=== PATIENT | female | born 1935 | race Caucasian/White ===

== ENCOUNTER 2016-07-23 17:00 | Inpatient (IN) | payer MEDICARE, MEDICAID ==
--- NOTE | 2016-07-23 17:16 | ED Physician Chart ---
Chief Complaint/HPI - Patient Information Date Seen:: 07/23/16 Time Seen:: 17:00 Chief Complaint:: generalized weakness History of Present Illness:: 80-year-old female with acute, constant, moderate to severe, generalized weakness started today. Has associated inability to stand. Also has associated decreased appetite. History limited patient has underlying dementia History provided by EMS and EMS run sheet Historian:: EMS Review:: Nurse's Note Reviewed, EMS run form Reviewed, Transfer documents Reviewed Review of Systems - Review of Systems Other: Complete system review otherwise unremarkable except as noted in HPI. Past Medical History - Past Medical History Past Medical History: HTN, Dyslipidemia, Thyroid disorder, Dementia, Other ( chronic kidney disease) Family History: None Social History: Non Smoker, No Alcohol, No Drug Use, Care Facility Surgical History: None Psychiatricy History: Dementia Medication: Reviewed Family Medical History - Family Member Mother History Unknown: Yes Physical Exam - Physical Examination Other:: INITIAL VITAL SIGNS: Reviewed by me GENERAL: Alert and interactive but confused and demented. No acute distress HEAD: Head is normocephalic and atraumatic EYES: EOMI. . No scleral icterus. No conjunctival injection ENT: Dry mucous membranes. NECK: Supple. No masses. Full range of motion RESPIRATORY: No tachypnea. Clear breath sounds bilaterally. No wheezing, rales, or rhonchi CV: Regular rate and rhythm. No murmurs, rubs, or gallops ABDOMEN: Soft, non-distended, non-tender. No guarding. No rebound. No masses. EXTREMITIES: No deformity. No cyanosis. No edema. SKIN: Warm and dry. No obvious rashes. NEUROLOGIC: Alert and oriented. Face is symmetric. Speech is normal. Moves all extremities equally. Motor and sensory distally intact. Labs/Radiology/EKG Results - Lab Results Results: Lab Results 07/23/16 07/23/16 07/23/16 Range/Units 17:15 17:15 17:15 WBC 7.6 (4.8-10.8) Th/cmm RBC 3.56 L (3.80-5.20) Mil/cmm Hgb 11.2 L (11.7-16.1) gm/dL Hct 33.6 L (35.0-45.0) % MCV 94.5 (81-100) fl MCH 31.5 H (27.0-31.0) pg MCHC Differential 33.4 (28.0-36.0) pg RDW 13.6 (11.5-20.0) % Plt Count 225 (150-400) Th/cmm MPV 7.7 fl Neutrophils % 72.7 (40.0-80.0) % Lymphocytes % 18.3 L (20.0-50.0) % Monocytes % 7.6 (2.0-10.0) % Eosinophils % 0.9 (0.0-5.0) % Basophils % 0.5 (0.0-2.0) % PT 11.0 (9.5-11.5) SECONDS INR 1.06 (0.5-1.4) PTT (Actin FS) 25.7 L (26.0-38.0) SECONDS Sodium 141 (136-145) mEq/L Potassium 4.2 (3.5-5.1) mEq/L Chloride 111 H (98-107) mEq/L Carbon Dioxide 23.5 (21.0-31.0) mEq/L Anion Gap 10.7 (7.0-16.0) BUN 40 H (7-25) mg/dL Creatinine 1.8 H (0.6-1.2) mg/dL Est GFR ( Amer) TNP Est GFR (Non-Af Amer) TNP BUN/Creatinine Ratio 22.2 Glucose 101 (70-105) mg/dL Whole Bld Lactic Acid (0.60-1.99) mmol/L Calcium 9.0 (8.6-10.3) mg/dL Total Bilirubin 0.3 (0.3-1.0) mg/dL AST 14 (13-39) U/L ALT 17 (7-52) U/L Alkaline Phosphatase 51 (34-104) U/L Creatine Kinase 20 L (30-223) U/L Total Protein 6.2 (6.0-8.3) gm/dL Albumin 3.5 L (3.7-5.3) gm/dL Globulin 2.7 gm/dL Albumin/Globulin Ratio 1.3 (1.0-1.8) Urine Source Urine Color Urine Clarity (CLEAR) Urine pH Ur Specific [place] (1.005-1.030) Urine Protein (NEGATIVE) mg/dL Urine Glucose (UA) (NEGATIVE) mg/dL Urine Ketones (NEGATIVE) mg/dL Urine Blood (NEGATIVE) Urine Nitrate (NEGATIVE) Urine Bilirubin (NEGATIVE) Urine Urobilinogen (0.2 - 1.0) E.U./dL Ur Leukocyte Esterase (NEGATIVE) Urine RBC (0-5) /hpf Urine WBC (0-5) /hpf Ur Epithelial Cells (FEW) /lpf Amorphous Sediment (NONE SEEN) Urine Bacteria (NONE SEEN) /hpf 07/23/16 07/23/16 Range/Units 17:15 17:30 WBC (4.8-10.8) Th/cmm RBC (3.80-5.20) Mil/cmm Hgb (11.7-16.1) gm/dL Hct (35.0-45.0) % MCV (81-100) fl MCH (27.0-31.0) pg MCHC Differential (28.0-36.0) pg RDW (11.5-20.0) % Plt Count (150-400) Th/cmm MPV fl Neutrophils % (40.0-80.0) % Lymphocytes % (20.0-50.0) % Monocytes % (2.0-10.0) % Eosinophils % (0.0-5.0) % Basophils % (0.0-2.0) % PT (9.5-11.5) SECONDS INR (0.5-1.4) PTT (Actin FS) (26.0-38.0) SECONDS Sodium (136-145) mEq/L Potassium (3.5-5.1) mEq/L Chloride (98-107) mEq/L Carbon Dioxide (21.0-31.0) mEq/L Anion Gap (7.0-16.0) BUN (7-25) mg/dL Creatinine (0.6-1.2) mg/dL Est GFR ( Amer) Est GFR (Non-Af Amer) BUN/Creatinine Ratio Glucose (70-105) mg/dL Whole Bld Lactic Acid 1.04 (0.60-1.99) mmol/L Calcium (8.6-10.3) mg/dL Total Bilirubin (0.3-1.0) mg/dL AST (13-39) U/L ALT (7-52) U/L Alkaline Phosphatase (34-104) U/L Creatine Kinase (30-223) U/L Total Protein (6.0-8.3) gm/dL Albumin (3.7-5.3) gm/dL Globulin gm/dL Albumin/Globulin Ratio (1.0-1.8) Urine Source [place] Urine Color YELLOW Urine Clarity CLOUDY H (CLEAR) Urine pH 5.5 Ur Specific [place] 1.020 (1.005-1.030) Urine Protein 100 H (NEGATIVE) mg/dL Urine Glucose (UA) NEGATIVE (NEGATIVE) mg/dL Urine Ketones NEGATIVE (NEGATIVE) mg/dL Urine Blood MODERATE H (NEGATIVE) Urine Nitrate NEGATIVE (NEGATIVE) Urine Bilirubin NEGATIVE (NEGATIVE) Urine Urobilinogen 0.2 (0.2 - 1.0) E.U./dL Ur Leukocyte Esterase MODERATE H (NEGATIVE) Urine RBC 2-5 (0-5) /hpf Urine WBC 50-100 H (0-5) /hpf Ur Epithelial Cells FEW (FEW) /lpf Amorphous Sediment FEW URATES (NONE SEEN) Urine Bacteria MANY (NONE SEEN) /hpf - Radiology Results Results: Single AP VIEW Portable Chest X-ray was interpreted independently and contemporaneously by Gaviota Mcknight MD: No cardiomegaly Normal mediastinum No lung infiltrates No pneumothorax No soft tissue or bony abnormalities ED Septic Shock - . Is Septic Shock (SBP<90, OR Lactate>4 mmol\L) present?: No Reassessment (Disposition) - Reassessment Reassessment:: has UTI most likely causing infectious encephalopathy. Also has acute on chronic kidney injury and dehydration. Gave IV normal saline. Also given IV Rocephin. Discussed the case with the admitting physician. Patient will be admitted for further workup and treatment. Reassessment Condition:: Improved - Diagnosis Diagnosis:: Infectious encephalopathy Acute on chronic kidney failure Dehydration Failure to thrive - Patient Disposition Discharge/Transfer:: Acute Care w/in this hosp Admitting Medical Physician:: Ulises Chan Time:: 18:44 Condition at Disposition:: Improved ED Discharge Plan - Patient Disposition Admit/Discharge/Transfer: Acute Care w/in this hosp
[2016-07-23] MEDS ORDERED: cefTRIAXone 1 GM in Sodium Chloride 0.9% 50 ML IV ONE (17:17)
[2016-07-23] MEDS ORDERED: Sodium Chloride 0.9% 1,000 ML IV ONE (17:17)
[2016-07-23 17:47] LABS: % BASOPHILS 0.5 % (0.0-2.0); % EOSINOPHILS 0.9 % (0.0-5.0); % LYMPHOCYTES 18.3 % (20.0-50.0); % MONOCYTES 7.6 % (2.0-10.0); % NEUTROPHILS 72.7 % (40.0-80.0); HEMATOCRIT 33.6 % (35.0-45.0); HEMOGLOBIN 11.2 gm/dL (11.7-16.1); MEAN CELL VOLUME 94.5 fl (81-100); MEAN CORPUSCULAR HEMOGLOBIN 31.5 pg (27.0-31.0); MEAN CORPUSCULAR HGB CONC 33.4 pg (28.0-36.0); MEAN PLATELET VOLUME 7.7 fl; NEUTROPHILE ABSOLUTE 5.5 Th/cmm (1.8-8.0); PLATELET COUNT 225 Th/cmm (150-400); RED BLOOD COUNT 3.56 Mil/cmm (3.80-5.20); RED CELL DISTRIBUTION WIDTH 13.6 % (11.5-20.0); WHITE BLOOD COUNT 7.6 Th/cmm (4.8-10.8)
[2016-07-23 17:55] LABS: INR 1.06 (0.5-1.4)
[2016-07-23 18:00] LABS: ALB/GLOB RATIO 1.3 (1.0-1.8); ALKALINE PHOSPHATASE 51 U/L (34-104); ANION GAP 10.7 (7.0-16.0); BILIRUBIN,TOTAL 0.3 mg/dL (0.3-1.0); BUN - UREA NITROGEN 40 mg/dL (7-25); BUN/CREATININE RATIO 22.2; CARBON DIOXIDE 23.5 mEq/L (21.0-31.0); CHLORIDE 111 mEq/L (98-107); CREATININE - SERUM 1.8 mg/dL (0.6-1.2); GLUCOSE 101 mg/dL (70-105); POTASSIUM SERUM 4.2 mEq/L (3.5-5.1); SGOT 14 U/L (13-39); SGPT/ALT 17 U/L (7-52); SODIUM SERUM 141 mEq/L (136-145)
[2016-07-23 18:32] LABS: URINE BILIRUBIN NEGATIVE (NEGATIVE); URINE BLOOD MODERATE (NEGATIVE); URINE COLOR YELLOW; URINE GLUCOSE (UA) NEGATIVE (NEGATIVE); URINE KETONE NEGATIVE (NEGATIVE); URINE PH 5.5; URINE PROTEIN 100 mg/dL (NEGATIVE); URINE UROBILINOGEN 0.2 E.U./dL (0.2 - 1.0)
[2016-07-23 18:33] LABS: URINE EPITHELIAL CELLS FEW /lpf (FEW)
[2016-07-23 18:34] LABS: URINE AMORPHOUS SEDIMENT FEW URATES (NONE SEEN); URINE BACTERIA MANY /hpf (NONE SEEN); URINE WBC 50-100 /hpf (0-5)
--- NOTE | 2016-07-23 22:08 | Admit Criteria Form ---
Admit Criteria Forms - Admit Criteria Diagnosis: URINARY COMPLICATIONS Clinical Indications for Inpatient Care (Place 'X' for any and all applicable criteria): Ongoing inpatient care may be indicated for urinary complications with ANY ONE of the following: [X]I. Urinary tract infection requiring inpatient care as indicated by ANY ONE of the following(8)(19)(20): [ ]a) Severe symptoms (eg, high fever, severe pain) [X]b) Vomiting or dehydration requiring ongoing inpatient care [X]c) IV antibiotic needs that cannot be managed at lower level of care [ ]d) Hemodynamic instability [ ]e) Obstruction of collecting system by stone or tumor [ ]II. Urinary retention requiring drainage or surgery (3)(4)(5)(17)(18) [ ]III. Renal failure (Use Renal Failure Criteria for further information.) [ ]IV. Oliguria(30) [ ]V. Post obstructive diuresis requiring close monitoring of urine output and intravenous compensation for excessive fluid losses(33) Extended stay beyond goal length of stay for primary condition may be needed until ALL of the following are present(3)(4)(5)(8): [ ]a) Renal function (creatinine) at baseline, or daily decreases in creatinine consistent with renal function return [ ]b) Voiding adequately or with urinary catheter or percutaneous suprapubic tube and management regimen in place that is performable at lower level of care. [ ]c) Urine output adequate [ ]d) Fever absent or resolving [ ]e) Infection absent or treatable at next level of care The original [facility] content created by [employer] has been revised. The portions of the content which have been revised are identified through the use of italic text or in bold, and [facility] [employer] has neither reviewed nor approved the modified material. All other unmodified content is copyright [facility] Please see references footnoted in the original [facility] [employer] edition 2016 Admit Criteria Met?: Yes
[2016-07-23] MEDS ORDERED: Promethazine DM 6.25/15mg-5mL 5 ML SYR PO PRN (22:10)
[2016-07-23] MEDS ORDERED: Maalox 30 mL Cup PO PRN (22:10)
[2016-07-23] MEDS: Sodium Chloride 0.45% 1,000 ML IV SCH (22:29)
[2016-07-24 01:01] VITALS: BP 161/83
[2016-07-24 06:38] LABS: % BASOPHILS 0.6 % (0.0-2.0); % EOSINOPHILS 1.1 % (0.0-5.0); % LYMPHOCYTES 23.1 % (20.0-50.0); % MONOCYTES 6.8 % (2.0-10.0); % NEUTROPHILS 68.4 % (40.0-80.0); HEMATOCRIT 31.3 % (35.0-45.0); HEMOGLOBIN 10.3 gm/dL (11.7-16.1); MEAN CELL VOLUME 94.7 fl (81-100); MEAN CORPUSCULAR HEMOGLOBIN 31.3 pg (27.0-31.0); MEAN CORPUSCULAR HGB CONC 33.1 pg (28.0-36.0); MEAN PLATELET VOLUME 7.5 fl; PLATELET COUNT 194 Th/cmm (150-400); RED CELL DISTRIBUTION WIDTH 13.5 % (11.5-20.0)
[2016-07-24 06:51] LABS: WHITE BLOOD COUNT 5.9 Th/cmm (4.8-10.8)
[2016-07-24 06:52] LABS: ALB/GLOB RATIO 1.2 (1.0-1.8); ALKALINE PHOSPHATASE 45 U/L (34-104); ANION GAP 8.4 (7.0-16.0); BILIRUBIN,TOTAL 0.4 mg/dL (0.3-1.0); BUN - UREA NITROGEN 33 mg/dL (7-25); CALCIUM SERUM 8.6 mg/dL (8.6-10.3); CARBON DIOXIDE 22.7 mEq/L (21.0-31.0); CHLORIDE 109 mEq/L (98-107); CREATININE - SERUM 1.5 mg/dL (0.6-1.2); GLUCOSE 93 mg/dL (70-105); POTASSIUM SERUM 4.1 mEq/L (3.5-5.1); SGOT 12 U/L (13-39); SGPT/ALT 13 U/L (7-52); SODIUM SERUM 136 mEq/L (136-145)
[2016-07-24] MEDS: Levothyroxine 0.075 Mg Tab PO SCH (08:00)
[2016-07-24] MEDS: Multivitamin w/ Minerals Tab PO SCH (08:58)
[2016-07-24] MEDS: Pantoprazole 40 mg EC Tab PO SCH (08:58)
[2016-07-24] MEDS ORDERED: NEBIVOLOL HCL 10 MG PO SCH (09:00)
[2016-07-24] MEDS ORDERED: [UNRECOGNIZED DRUG - OTHER] PO SCH (09:00)
--- NOTE | 2016-07-24 09:11 | Diagnostic Imaging Report ---
CHEST X-RAY: AP view INDICATION: pain COMPARISON: None FINDINGS: Chronic lung changes are seen with no focal consolidation or pleural effusions. Borderline cardiomegaly is seen with atherosclerotic vascular disease and probable mitral annulus calcifications. Degenerative changes of the spine are noted. IMPRESSION: Chronic lung changes with no focal consolidation identified. Borderline cardiomegaly with atherosclerosis.
[2016-07-24] MEDS ORDERED: Influenza Vaccine 0.5 mL Syr IM ONE (11:00)
[2016-07-24] MEDS ORDERED: Pneumococcal Vaccine 0.5 mL Vial IM ONE (11:00)
--- NOTE | 2016-07-24 11:54 | General Progress Note ---
Objective - Results Result Diagrams: 07/24/16 06:05 07/24/16 06:05 Recent Labs: Laboratory Last Values WBC 5.9 Th/cmm (4.8-10.8) D 07/24/16 06:05 RBC 3.30 Mil/cmm (3.80-5.20) L 07/24/16 06:05 Hgb 10.3 gm/dL (11.7-16.1) L 07/24/16 06:05 Hct 31.3 % (35.0-45.0) L 07/24/16 06:05 MCV 94.7 fl (81-100) 07/24/16 06:05 MCH 31.3 pg (27.0-31.0) H 07/24/16 06:05 MCHC Differential 33.1 pg (28.0-36.0) 07/24/16 06:05 RDW 13.5 % (11.5-20.0) 07/24/16 06:05 Plt Count 194 Th/cmm (150-400) 07/24/16 06:05 MPV 7.5 fl 07/24/16 06:05 Neutrophils % 68.4 % (40.0-80.0) 07/24/16 06:05 Lymphocytes % 23.1 % (20.0-50.0) 07/24/16 06:05 Monocytes % 6.8 % (2.0-10.0) 07/24/16 06:05 Eosinophils % 1.1 % (0.0-5.0) 07/24/16 06:05 Basophils % 0.6 % (0.0-2.0) 07/24/16 06:05 PT 11.0 SECONDS (9.5-11.5) 07/23/16 17:15 INR 1.06 (0.5-1.4) 07/23/16 17:15 PTT (Actin FS) 25.7 SECONDS (26.0-38.0) L 07/23/16 17:15 Sodium 136 mEq/L (136-145) 07/24/16 06:05 Potassium 4.1 mEq/L (3.5-5.1) 07/24/16 06:05 Chloride 109 mEq/L (98-107) H 07/24/16 06:05 Carbon Dioxide 22.7 mEq/L (21.0-31.0) 07/24/16 06:05 Anion Gap 8.4 (7.0-16.0) 07/24/16 06:05 BUN 33 mg/dL (7-25) H 07/24/16 06:05 Creatinine 1.5 mg/dL (0.6-1.2) H 07/24/16 06:05 Est GFR ( Amer) TNP 07/24/16 06:05 Est GFR (Non-Af Amer) TNP 07/24/16 06:05 BUN/Creatinine Ratio 22.0 07/24/16 06:05 Glucose 93 mg/dL (70-105) 07/24/16 06:05 Whole Bld Lactic Acid 1.04 mmol/L (0.60-1.99) 07/23/16 17:15 Calcium 8.6 mg/dL (8.6-10.3) 07/24/16 06:05 Total Bilirubin 0.4 mg/dL (0.3-1.0) 07/24/16 06:05 AST 12 U/L (13-39) L 07/24/16 06:05 ALT 13 U/L (7-52) 07/24/16 06:05 Alkaline Phosphatase 45 U/L (34-104) 07/24/16 06:05 Creatine Kinase 20 U/L (30-223) L 07/23/16 17:15 Total Protein 5.5 gm/dL (6.0-8.3) L 07/24/16 06:05 Albumin 3.0 gm/dL (3.7-5.3) L 07/24/16 06:05 Globulin 2.5 gm/dL 07/24/16 06:05 Albumin/Globulin Ratio 1.2 (1.0-1.8) 07/24/16 06:05 Urine Source [place] 07/23/16 17:30 Urine Color YELLOW 07/23/16 17:30 Urine Clarity CLOUDY (CLEAR) H 07/23/16 17:30 Urine pH 5.5 07/23/16 17:30 Ur Specific [place] 1.020 (1.005-1.030) 07/23/16 17:30 Urine Protein 100 mg/dL (NEGATIVE) H 07/23/16 17:30 Urine Glucose (UA) NEGATIVE mg/dL (NEGATIVE) 07/23/16 17:30 Urine Ketones NEGATIVE mg/dL (NEGATIVE) 07/23/16 17:30 Urine Blood MODERATE (NEGATIVE) H 07/23/16 17:30 Urine Nitrate NEGATIVE (NEGATIVE) 07/23/16 17:30 Urine Bilirubin NEGATIVE (NEGATIVE) 07/23/16 17:30 Urine Urobilinogen 0.2 E.U./dL (0.2 - 1.0) 07/23/16 17:30 Ur Leukocyte Esterase MODERATE (NEGATIVE) H 07/23/16 17:30 Urine RBC 2-5 /hpf (0-5) 07/23/16 17:30 Urine WBC 50-100 /hpf (0-5) H 07/23/16 17:30 Ur Epithelial Cells FEW /lpf (FEW) 07/23/16 17:30 Amorphous Sediment FEW URATES (NONE SEEN) 07/23/16 17:30 Urine Bacteria MANY /hpf (NONE SEEN) 07/23/16 17:30 - Physical Exam Vitals and I&O: Vital Signs Temp 97.1 F 07/24/16 08:00 Pulse 65 07/24/16 08:57 Resp 18 07/24/16 08:00 BP 178/89 07/24/16 08:00 Pulse Ox 98 07/24/16 08:00 Intake & Output 07/23/16 07/24/16 07/24/16 18:59 06:59 18:59 Intake Total 150 Balance 150 Intake: Oral 150 Active Medications: Current Medications Acetaminophen (Tylenol) 650 mg PO Q4HR PRN PRN Reason: PAIN Stop: 09/21/16 22:09 Al Hydrox/Mg Hydrox/Simethicone (Maalox) 30 ml PO Q6H PRN PRN Reason: GERD Atorvastatin Calcium (Lipitor) 10 mg PO HS BRANDY PRN Reason: Protocol Stop: 09/22/16 20:59 Clonidine HCl (Catapres) 0.1 mg PO Q6H PRN PRN Reason: SBP >160 Stop: 09/21/16 22:09 Last Admin: 07/24/16 08:57 Dose: 0.1 mg Docusate Sodium (Colace) 100 mg PO Q12H PRN PRN Reason: Constipation Stop: 09/21/16 22:09 Escitalopram Oxalate (Lexapro) 10 mg PO HS BRANDY PRN Reason: Protocol Stop: 09/22/16 20:59 Sodium Chloride (Nacl 0.45%) 1,000 mls @ 125 mls/hr IV .Q8H BRANDY Stop: 09/21/16 19:57 Last Admin: 07/23/16 22:29 Dose: 125 mls/hr Levothyroxine Sodium (Synthroid) 0.075 mg PO QDAC BRANDY Stop: 09/22/16 07:29 Last Admin: 07/24/16 08:00 Dose: 0.075 mg Megestrol Acetate (Megace) 400 mg PO BID BRANDY Stop: 09/22/16 08:59 Last Admin: 07/24/16 08:58 Dose: 400 mg Miscellaneous (Donepezil Hcl [Donepezil Hcl Odt]) 5 mg PO HS [facility] Stop: 09/22/16 20:59 Miscellaneous (Nebivolol Hcl [Bystolic]) 10 mg PO DAILY BRANDY Stop: 09/22/16 08:59 Pantoprazole Sodium (Protonix) 40 mg PO DAILY BRANDY Stop: 09/22/16 08:59 Last Admin: 07/24/16 08:58 Dose: 40 mg Promethazine HCl/Dextromethorphan (Phenergan Dm 6.25/15mg-5 Ml) 5 ml PO TID PRN PRN Reason: Cough Stop: 09/21/16 22:09 Assessment/Plan - Problem List Patient Problems: All Active Problems GENERALIZED WEAKNESS (Acute)
[2016-07-24] MEDS ORDERED: Non-Formulary Item 1 EA (Donepezil Hcl [Donepezil Hcl Odt] 5 MG) PO SCH (21:00)
--- NOTE | 2016-07-24 21:51 | History & Physical ---
HISTORY OF PRESENT ILLNESS: The patient came from [facility], apparently she was confused and generalized weakness, she was worked up, found to have UTI, possible sepsis, history of hypertension, hyperlipidemia, thyroid disorder, dementia, the patient is admitted. The patient was unable to give me much history. REVIEW OF SYSTEMS: Difficult to obtain. PHYSICAL EXAMINATION: GENERAL: The patient was awake, but confused and have dementia. HEENT: Normocephalic. Pupils equal, reactive to light. NECK: Supple, nontender. LUNGS: Clear. CARDIOVASCULAR: S1, S2 heard. ABDOMEN: Soft. Bowel sounds are heard. CENTRAL NERVOUS SYSTEM: Grossly normal. LABORATORY DATA: The patient's hemoglobin 11.2, hematocrit 33, WBC count was 7.6, BUN and creatinine were high and also the patient's urine showed cloudy and wbcs are positive and leukocyte esterase was positive. The chest x-ray showed no pneumonia. DIAGNOSES: Acute urinary tract infection, possible sepsis, encephalopathy of acute renal failure with a history of a possible chronic renal failure, history of dementia, history of failure to thrive. PLAN: Was made, the patient is being admitted, we will give IV antibiotics, IV fluids and I will have Dr. Murrell see the patient as well as Dr. Guzmán and I will also have Dr. Correa see the patient, I will follow the patient. JOB# [id number]
[2016-07-24] MEDS: Atorvastatin Calcium 10 MG TAB PO SCH (22:01)
[2016-07-25 07:03] LABS: ANION GAP 10.6 (7.0-16.0); BUN - UREA NITROGEN 30 mg/dL (7-25); CALCIUM SERUM 8.5 mg/dL (8.6-10.3); CARBON DIOXIDE 21.5 mEq/L (21.0-31.0); CHLORIDE 107 mEq/L (98-107); CREATININE - SERUM 1.5 mg/dL (0.6-1.2); GLUCOSE 103 mg/dL (70-105); POTASSIUM SERUM 4.1 mEq/L (3.5-5.1); SODIUM SERUM 135 mEq/L (136-145)
[2016-07-25 07:06] LABS: % BASOPHILS 0.4 % (0.0-2.0); % LYMPHOCYTES 18.4 % (20.0-50.0); % MONOCYTES 6.4 % (2.0-10.0); % NEUTROPHILS 73.8 % (40.0-80.0); HEMATOCRIT 32.5 % (35.0-45.0); MEAN CELL VOLUME 93.4 fl (81-100); MEAN CORPUSCULAR HEMOGLOBIN 31.6 pg (27.0-31.0); MEAN CORPUSCULAR HGB CONC 33.9 pg (28.0-36.0); MEAN PLATELET VOLUME 7.8 fl; NEUTROPHILE ABSOLUTE 4.8 Th/cmm (1.8-8.0); PLATELET COUNT 199 Th/cmm (150-400); RED BLOOD COUNT 3.48 Mil/cmm (3.80-5.20); RED CELL DISTRIBUTION WIDTH 13.1 % (11.5-20.0); WHITE BLOOD COUNT 6.5 Th/cmm (4.8-10.8)
--- NOTE | 2016-07-25 09:06 | General Progress Note ---
Subjective - Review of Systems Service Date: 07/25/16 Subjective: patient is awake has high tsh Objective - Results Result Diagrams: 07/25/16 05:50 07/25/16 05:50 Recent Labs: Laboratory Last Values WBC 6.5 Th/cmm (4.8-10.8) 07/25/16 05:50 RBC 3.48 Mil/cmm (3.80-5.20) L 07/25/16 05:50 Hgb 11.0 gm/dL (11.7-16.1) L 07/25/16 05:50 Hct 32.5 % (35.0-45.0) L 07/25/16 05:50 MCV 93.4 fl (81-100) 07/25/16 05:50 MCH 31.6 pg (27.0-31.0) H 07/25/16 05:50 MCHC Differential 33.9 pg (28.0-36.0) 07/25/16 05:50 RDW 13.1 % (11.5-20.0) 07/25/16 05:50 Plt Count 199 Th/cmm (150-400) 07/25/16 05:50 MPV 7.8 fl 07/25/16 05:50 Neutrophils % 73.8 % (40.0-80.0) 07/25/16 05:50 Lymphocytes % 18.4 % (20.0-50.0) L 07/25/16 05:50 Monocytes % 6.4 % (2.0-10.0) 07/25/16 05:50 Eosinophils % 1.0 % (0.0-5.0) 07/25/16 05:50 Basophils % 0.4 % (0.0-2.0) 07/25/16 05:50 PT 11.0 SECONDS (9.5-11.5) 07/23/16 17:15 INR 1.06 (0.5-1.4) 07/23/16 17:15 PTT (Actin FS) 25.7 SECONDS (26.0-38.0) L 07/23/16 17:15 Sodium 135 mEq/L (136-145) L 07/25/16 05:50 Potassium 4.1 mEq/L (3.5-5.1) 07/25/16 05:50 Chloride 107 mEq/L (98-107) 07/25/16 05:50 Carbon Dioxide 21.5 mEq/L (21.0-31.0) 07/25/16 05:50 Anion Gap 10.6 (7.0-16.0) 07/25/16 05:50 BUN 30 mg/dL (7-25) H 07/25/16 05:50 Creatinine 1.5 mg/dL (0.6-1.2) H 07/25/16 05:50 Est GFR ( Amer) TNP 07/25/16 05:50 Est GFR (Non-Af Amer) TNP 07/25/16 05:50 BUN/Creatinine Ratio 20.0 07/25/16 05:50 Glucose 103 mg/dL (70-105) 07/25/16 05:50 Whole Bld Lactic Acid 1.04 mmol/L (0.60-1.99) 07/23/16 17:15 Calcium 8.5 mg/dL (8.6-10.3) L 07/25/16 05:50 Total Bilirubin 0.4 mg/dL (0.3-1.0) 07/24/16 06:05 AST 12 U/L (13-39) L 07/24/16 06:05 ALT 13 U/L (7-52) 07/24/16 06:05 Alkaline Phosphatase 45 U/L (34-104) 07/24/16 06:05 Creatine Kinase 20 U/L (30-223) L 07/25/16 05:50 Total Protein 5.5 gm/dL (6.0-8.3) L 07/24/16 06:05 Albumin 3.0 gm/dL (3.7-5.3) L 07/24/16 06:05 Globulin 2.5 gm/dL 07/24/16 06:05 Albumin/Globulin Ratio 1.2 (1.0-1.8) 07/24/16 06:05 TSH 17.55 uIU/ml (0.34-5.60) H 07/25/16 05:50 Urine Source [place] 07/23/16 17:30 Urine Color YELLOW 07/23/16 17:30 Urine Clarity CLOUDY (CLEAR) H 07/23/16 17:30 Urine pH 5.5 07/23/16 17:30 Ur Specific [place] 1.020 (1.005-1.030) 07/23/16 17:30 Urine Protein 100 mg/dL (NEGATIVE) H 07/23/16 17:30 Urine Glucose (UA) NEGATIVE mg/dL (NEGATIVE) 07/23/16 17:30 Urine Ketones NEGATIVE mg/dL (NEGATIVE) 07/23/16 17:30 Urine Blood MODERATE (NEGATIVE) H 07/23/16 17:30 Urine Nitrate NEGATIVE (NEGATIVE) 07/23/16 17:30 Urine Bilirubin NEGATIVE (NEGATIVE) 07/23/16 17:30 Urine Urobilinogen 0.2 E.U./dL (0.2 - 1.0) 07/23/16 17:30 Ur Leukocyte Esterase MODERATE (NEGATIVE) H 07/23/16 17:30 Urine RBC 2-5 /hpf (0-5) 07/23/16 17:30 Urine WBC 50-100 /hpf (0-5) H 07/23/16 17:30 Ur Epithelial Cells FEW /lpf (FEW) 07/23/16 17:30 Amorphous Sediment FEW URATES (NONE SEEN) 07/23/16 17:30 Urine Bacteria MANY /hpf (NONE SEEN) 07/23/16 17:30 - Physical Exam Vitals and I&O: Vital Signs Temp 97.1 F 07/25/16 08:28 Pulse 70 07/25/16 08:28 Resp 17 07/25/16 08:28 BP 151/76 07/25/16 08:28 Pulse Ox 99 07/25/16 08:28 Intake & Output 07/24/16 07/25/16 07/25/16 18:59 06:59 18:59 Intake Total 650 200 Balance 650 200 Weight (lbs) 68.13 kg Intake: Oral 650 200 Other: # Voids 4 5 Active Medications: Current Medications Acetaminophen (Tylenol) 650 mg PO Q4HR PRN PRN Reason: PAIN Stop: 09/21/16 22:09 Al Hydrox/Mg Hydrox/Simethicone (Maalox) 30 ml PO Q6H PRN PRN Reason: GERD Atorvastatin Calcium (Lipitor) 10 mg PO HS BRANDY PRN Reason: Protocol Stop: 09/22/16 20:59 Last Admin: 07/24/16 22:01 Dose: 10 mg Ciprofloxacin (Cipro) 250 mg PO BID BRANDY Stop: 09/23/16 08:59 Clonidine HCl (Catapres) 0.1 mg PO Q4HR PRN PRN Reason: SBP >160 Stop: 09/22/16 01:04 Clonidine HCl (Catapres) 0.2 mg PO BID BRANDY Stop: 09/22/16 16:59 Last Admin: 07/24/16 17:20 Dose: 0.2 mg Docusate Sodium (Colace) 100 mg PO Q12H PRN PRN Reason: Constipation Stop: 09/21/16 22:09 Donepezil HCl (Aricept) 5 mg PO HS BRANDY Stop: 09/23/16 20:59 Escitalopram Oxalate (Lexapro) 10 mg PO HS BRANDY PRN Reason: Protocol Stop: 09/22/16 20:59 Sodium Chloride (Nacl 0.45%) 1,000 mls @ 125 mls/hr IV .Q8H BRANDY Stop: 09/21/16 19:57 Last Admin: 07/23/16 22:29 Dose: 125 mls/hr Levothyroxine Sodium (Synthroid) 0.075 mg PO QDAC BRANDY Stop: 09/22/16 07:29 Last Admin: 07/24/16 08:00 Dose: 0.075 mg Megestrol Acetate (Megace) 400 mg PO BID BRANDY Stop: 09/22/16 08:59 Last Admin: 07/24/16 17:20 Dose: 400 mg Miscellaneous (Nebivolol Hcl [Bystolic]) 10 mg PO DAILY BRANDY Stop: 09/22/16 08:59 Pantoprazole Sodium (Protonix) 40 mg PO DAILY BRANDY Stop: 09/22/16 08:59 Last Admin: 07/24/16 08:58 Dose: 40 mg Promethazine HCl/Dextromethorphan (Phenergan Dm 6.25/15mg-5 Ml) 5 ml PO TID PRN PRN Reason: Cough Stop: 09/21/16 22:09 General: No acute distress HEENT: Atraumatic Neck: Supple Cardiovascular: Regular rate Lungs: Clear to auscultation Abdomen: Bowel sounds, Soft, Distended Neurological: Sensation intact Psych/Mental Status: Mental status NL Assessment/Plan - Problem List Patient Problems: All Active Problems GENERALIZED WEAKNESS (Acute) dehydartion (Acute) gait disorder (Acute) hypothyroidm (Acute) osteoporosis (Acute) prerenal azotemiaa improving (Acute) - Assessment Assessment: confusion general weakness UTI HTN Hyperlipidemia thyroids disorder dementia - Plan Plan: monitor vitals/diet labs iv antibiotic fall precaution Nutritional Asmnt/Malnutr-PDOC - Dietary Evaluation Malnutrition Findings (Please click <Entered> for more info): Nutritional Asmnt/Malnutrition Start: 07/24/16 17: 36 Text: Status: Complete Freq: Document 07/24/16 17:36 GSUN (Rec: 07/24/16 17:51 [email or web address] [email or web address]) Nutritional Asmnt/Malnutrition Patient General Information Nutritional Screening High Risk Screening Diagnosis ER: infectious encephalopathy, acute on chronic CKD, dehydration, FTT Pertinent Medical Hx/Surgical Hx ER: HTN, dyslipidemia, throid disorder, dementia, CKD Subjective Information 80 year old female from home. Pt was asleep during visit, spoke to son at bedside. Son reported pt fell around 1 month ago, was admitted to rehab and ordered appetite stimulant and was eating well with possible weight gain, pt was then discharged home with caregiver who comes by. Son began noticing recent decline in PO intake, barely ate breakfast and lunch. Son stated pt usually drinks Ensure at home. Son denied difficulties chewing/ swallowing. Current Diet Order/ Nutrition Support Low sodium 2gm Pertinent Medications Maalox, Lipitor, Catapres, Colace, Synthroid, Megace, Protonix Pertinent Labs 07/23: BUN 40H, creatinine 1.8H 07/24: BUN 33H (improving), creaitnine 1.5H (improving), potassium 4.1 Nutritional Hx/Data Height 1.6 m Height (Calculated Centimeters) 160.0 Current Weight (lbs) 68.13 kg Weight (Calculated Kilograms) 68.1 Weight (Calculated Grams) 91265.6 Usual body Weight (lbs) 130 [place] Body Weight 120 Weight Status Overweight GI Symptoms Food Allergies No Cultural/Ethnic/Adventist Belief Unknown. Usual diet at home [place]. Skin Integrity/Comment: Non-pitting edema bilateral legs and right arm Current %PO Poor (25-49%) Estimated Nutritional Goals Calories/Kcals/Kg UBW 130lb/59kg, 30-35kcal/kg Kcals Calculated 1770-2065kcal Protein g/kg: UBW 1.2-1.4g/kg Protein Calculated 71-83g Fluid: ml 1770-2065ml (1ml/kcal) Nutritional Problem 1. Problem Problem Increased protein and kcal needs related to Etiology hypermetabolic state, recent decline in PO intake aeb Signs/Symptoms: ER: sepsis and FFT, son report PO intake <25% Intervention/Recommendation Comments 1. Continue with low sodium diet. Current PO intake is not meeting nutritional needs. 2. Recommend Novasource Renal BID for additional kcal and protein to better meet nutritional needs. Expected Outcomes/Goals Expected Outcomes/Goals 1. PO intake to meet 100% of estimated nutritional needs.
[2016-07-25] MEDS: Multivitamin w/ Minerals Tab PO SCH (09:26)
[2016-07-25] MEDS: Pantoprazole 40 mg EC Tab PO SCH (09:27)
[2016-07-25] MEDS: Levothyroxine 0.075 Mg Tab PO SCH (09:38)
[2016-07-25] MEDS: Sodium Chloride 0.45% 1,000 ML IV SCH (09:39)
[2016-07-25] MEDS: Atorvastatin Calcium 10 MG TAB PO SCH (21:19)
--- NOTE | 2016-07-25 22:41 | Consultation ---
INFECTIOUS DISEASE CONSULTATION REFERRING PHYSICIAN: Dr. Chan. REASON FOR CONSULTATION: UTI. HISTORY OF PRESENT ILLNESS: The patient is an 80-year-old female with past medical history of hypertension, dyslipidemia, hypothyroidism, dementia, CKD, brought in from nursing facility for generalized weakness of 1 day. She was unable to stand on her own and lost her appetite. So, she was sent to the ER for further evaluation and management. On initial evaluation, the patient's temperature was 101.2 degrees Fahrenheit and WBC count was 7600. Her creatine was 1.8. Urinalysis showed pyuria and bacteriuria. She was diagnosed to have a UTI and 1 gram Rocephin IV was administered in the ER. Urine culture grew more than 100,000 gram-negative rods. ID consult was called for further antibiotic management. PAST MEDICAL HISTORY: Includes as mentioned above, hypertension, dyslipidemia, hypothyroidism, dementia, CKD stage 2-3. FAMILY HISTORY: Noncontributory. SOCIAL HISTORY: The patient lives at nursing facility. No history of smoking, alcohol, or drug use. PAST SURGICAL HISTORY: Not available. PSYCHIATRIC HISTORY: Dementia. ALLERGIES: NKDA. MEDICATIONS: As per medication reconciliation sheet. Antibiotic wright, the patient had received Rocephin 1 gram IV yesterday. FAMILY HISTORY: Noncontributory. REVIEW OF SYSTEMS: The patient is a poor historian, unable to provide appropriate history. GENERAL: The patient has fever at presentation. The patient had also developed chills. HEENT: The patient denies any diplopia, photophobia, sore throat, or congestion. RESPIRATORY: The patient denies any cough or shortness of breath. CVS: The patient denies any chest pain or palpitation. GI: The patient denies any nausea, vomiting, diarrhea, or constipation. GENITOURINARY: The patient denies any dysuria or hematuria at this time. NEUROLOGIC: The patient denies any headache, dizziness, or focal weakness. PHYSICAL EXAMINATION: GENERAL: The patient is comfortable, well nourished, well developed, lying in the bed, not in acute distress. VITAL SIGNS: Temperature 97.6, T-max is 101.2 degrees Fahrenheit, pulse 63, respirations 19, and blood pressure is 125/67. HEENT: Head is normocephalic, atraumatic. Oral cavity; moist, pink tongue. Eyes; no pallor, no icterus. Pupils; PERRLA, EOMI. NECK: Supple. No JVD. No carotid bruit. Trachea in midline. CHEST: Bilateral vesicular sounds. No crackles or wheezing. HEART: S1 and S2 within normal limits. Regular rhythm. No murmur. No gallop. ABDOMEN: Soft, nontender, nondistended. Bowel sounds present. EXTREMITIES: No cyanosis. No clubbing. No edema. NEUROLOGICAL: Alert, awake, oriented x 3. Follows commands. Speech is clear. LABORATORY DATA: Current lab shows WBC count is 5900, hemoglobin 10.3, hematocrit 31.3, platelets are 194,000, neutrophil is 68%. Sodium is 136, potassium 4.1, chloride 109, bicarbonate is 23, BUN is 33, creatinine 1.5, glucose is 93. LFTs are reviewed. Urinalysis showed cloudy urine with moderate blood, moderate leukocyte esterase, wbc's 50-100, rbc's 2-5. IMPRESSION: 1. Fever, likely due to urinary tract infection. 2. Urinary tract infection. Urine culture grew gram-negative rods. 3. Hypertension. 4. Hyperlipidemia. 5. Hypothyroidism. RECOMMENDATIONS: We will start ciprofloxacin 250 gram p.o. b.i.d. Depending on her urine culture report, we will define final antibiotic therapy. Meanwhile, get renal ultrasound. Otherwise, chest x-ray shows no active disease. Check CBC, BMP in a.m. Check CPK in a.m. Follow up blood cultures. Follow up urine culture. Thank you, Dr. Chan, for involving me taking care of this patient. [facility]# [id number] [facility]
--- NOTE | 2016-07-25 23:04 | Infectious Disease Prog Note ---
Infectious Disease Subjective - Review of Systems Service Date: 07/25/16 Subjective: There is no new change. There is no fever. Infectious Disease Objective - Results Result Diagrams: 07/25/16 05:50 07/25/16 05:50 Recent Labs: Laboratory Last Values WBC 6.5 Th/cmm (4.8-10.8) 07/25/16 05:50 RBC 3.48 Mil/cmm (3.80-5.20) L 07/25/16 05:50 Hgb 11.0 gm/dL (11.7-16.1) L 07/25/16 05:50 Hct 32.5 % (35.0-45.0) L 07/25/16 05:50 MCV 93.4 fl (81-100) 07/25/16 05:50 MCH 31.6 pg (27.0-31.0) H 07/25/16 05:50 MCHC Differential 33.9 pg (28.0-36.0) 07/25/16 05:50 RDW 13.1 % (11.5-20.0) 07/25/16 05:50 Plt Count 199 Th/cmm (150-400) 07/25/16 05:50 MPV 7.8 fl 07/25/16 05:50 Neutrophils % 73.8 % (40.0-80.0) 07/25/16 05:50 Lymphocytes % 18.4 % (20.0-50.0) L 07/25/16 05:50 Monocytes % 6.4 % (2.0-10.0) 07/25/16 05:50 Eosinophils % 1.0 % (0.0-5.0) 07/25/16 05:50 Basophils % 0.4 % (0.0-2.0) 07/25/16 05:50 PT 11.0 SECONDS (9.5-11.5) 07/23/16 17:15 INR 1.06 (0.5-1.4) 07/23/16 17:15 PTT (Actin FS) 25.7 SECONDS (26.0-38.0) L 07/23/16 17:15 Sodium 135 mEq/L (136-145) L 07/25/16 05:50 Potassium 4.1 mEq/L (3.5-5.1) 07/25/16 05:50 Chloride 107 mEq/L (98-107) 07/25/16 05:50 Carbon Dioxide 21.5 mEq/L (21.0-31.0) 07/25/16 05:50 Anion Gap 10.6 (7.0-16.0) 07/25/16 05:50 BUN 30 mg/dL (7-25) H 07/25/16 05:50 Creatinine 1.5 mg/dL (0.6-1.2) H 07/25/16 05:50 Est GFR ( Amer) TNP 07/25/16 05:50 Est GFR (Non-Af Amer) TNP 07/25/16 05:50 BUN/Creatinine Ratio 20.0 07/25/16 05:50 Glucose 103 mg/dL (70-105) 07/25/16 05:50 Whole Bld Lactic Acid 1.04 mmol/L (0.60-1.99) 07/23/16 17:15 Calcium 8.5 mg/dL (8.6-10.3) L 07/25/16 05:50 Total Bilirubin 0.4 mg/dL (0.3-1.0) 07/24/16 06:05 AST 12 U/L (13-39) L 07/24/16 06:05 ALT 13 U/L (7-52) 07/24/16 06:05 Alkaline Phosphatase 45 U/L (34-104) 07/24/16 06:05 Creatine Kinase 20 U/L (30-223) L 07/25/16 05:50 Total Protein 5.5 gm/dL (6.0-8.3) L 07/24/16 06:05 Albumin 3.0 gm/dL (3.7-5.3) L 07/24/16 06:05 Globulin 2.5 gm/dL 07/24/16 06:05 Albumin/Globulin Ratio 1.2 (1.0-1.8) 07/24/16 06:05 TSH 17.55 uIU/ml (0.34-5.60) H 07/25/16 05:50 Urine Source [place] 07/23/16 17:30 Urine Color YELLOW 07/23/16 17:30 Urine Clarity CLOUDY (CLEAR) H 07/23/16 17:30 Urine pH 5.5 07/23/16 17:30 Ur Specific [place] 1.020 (1.005-1.030) 07/23/16 17:30 Urine Protein 100 mg/dL (NEGATIVE) H 07/23/16 17:30 Urine Glucose (UA) NEGATIVE mg/dL (NEGATIVE) 07/23/16 17:30 Urine Ketones NEGATIVE mg/dL (NEGATIVE) 07/23/16 17:30 Urine Blood MODERATE (NEGATIVE) H 07/23/16 17:30 Urine Nitrate NEGATIVE (NEGATIVE) 07/23/16 17:30 Urine Bilirubin NEGATIVE (NEGATIVE) 07/23/16 17:30 Urine Urobilinogen 0.2 E.U./dL (0.2 - 1.0) 07/23/16 17:30 Ur Leukocyte Esterase MODERATE (NEGATIVE) H 07/23/16 17:30 Urine RBC 2-5 /hpf (0-5) 07/23/16 17:30 Urine WBC 50-100 /hpf (0-5) H 07/23/16 17:30 Ur Epithelial Cells FEW /lpf (FEW) 07/23/16 17:30 Amorphous Sediment FEW URATES (NONE SEEN) 07/23/16 17:30 Urine Bacteria MANY /hpf (NONE SEEN) 07/23/16 17:30 - Physical Exam Vitals and I&O: Vital Signs Temp 97 F 07/25/16 20:00 Pulse 63 07/25/16 20:00 Resp 18 07/25/16 20:00 BP 137/76 07/25/16 20:00 Pulse Ox 97 07/25/16 20:00 Intake & Output 07/25/16 07/25/16 07/26/16 06:59 18:59 06:59 Intake Total 200 1550 150 Balance 200 1550 150 Intake: Oral 200 1550 150 Other: # Voids 5 4 Active Medications: Current Medications Acetaminophen (Tylenol) 650 mg PO Q4HR PRN PRN Reason: PAIN Stop: 09/21/16 22:09 Al Hydrox/Mg Hydrox/Simethicone (Maalox) 30 ml PO Q6H PRN PRN Reason: GERD Atorvastatin Calcium (Lipitor) 10 mg PO HS BRANDY PRN Reason: Protocol Stop: 09/22/16 20:59 Last Admin: 07/25/16 21:19 Dose: 10 mg Ciprofloxacin (Cipro) 250 mg PO BID BRANDY Stop: 09/23/16 08:59 Last Admin: 07/25/16 16:55 Dose: 250 mg Clonidine HCl (Catapres) 0.1 mg PO Q4HR PRN PRN Reason: SBP >160 Stop: 09/22/16 01:04 Clonidine HCl (Catapres) 0.2 mg PO BID BRANDY Stop: 09/22/16 16:59 Last Admin: 07/25/16 16:55 Dose: 0.2 mg Docusate Sodium (Colace) 100 mg PO Q12H PRN PRN Reason: Constipation Stop: 09/21/16 22:09 Donepezil HCl (Aricept) 5 mg PO HS BRANDY Stop: 09/23/16 20:59 Last Admin: 07/25/16 21:19 Dose: 5 mg Escitalopram Oxalate (Lexapro) 10 mg PO HS BRANDY PRN Reason: Protocol Stop: 09/22/16 20:59 Last Admin: 07/25/16 21:19 Dose: 10 mg Sodium Chloride (Nacl 0.45%) 1,000 mls @ 100 mls/hr IV .Q10H BRANDY Stop: 09/21/16 19:57 Levothyroxine Sodium (Synthroid) 0.125 mg PO QDAC BRANDY Stop: 09/24/16 07:29 Megestrol Acetate (Megace) 400 mg PO BID BRANDY Stop: 09/22/16 08:59 Last Admin: 07/25/16 16:55 Dose: 400 mg Miscellaneous (Nebivolol Hcl [Bystolic]) 10 mg PO DAILY BRANDY Stop: 09/22/16 08:59 Mupirocin (Bactroban Oint) 1 appl TP BID BRANDY Stop: 09/24/16 08:59 Mupirocin (Bactroban Oint) 1 appl NS BID BRANDY Stop: 07/30/16 09:01 Pantoprazole Sodium (Protonix) 40 mg PO DAILY BRANDY Stop: 09/22/16 08:59 Last Admin: 07/25/16 09:27 Dose: 40 mg Promethazine HCl/Dextromethorphan (Phenergan Dm 6.25/15mg-5 Ml) 5 ml PO TID PRN PRN Reason: Cough Stop: 09/21/16 22:09 General: no acute distress, well developed, well nourished HEENT: atraumatic, normocephalic, PERRLA, EOMI Neck: supple Cardiovascular: S1S2, regular Lungs: clear to auscultation bilaterally, clear to percussion Abdomen: soft, no tender, no distended, no mass Extremities: no cyanosis, no clubbing, no edema Neurological: awake, alert, oriented, CN 2-12 intact Skin: intact Infectious Disease Assmt/Plan - Problem List Patient Problems: All Active Problems GENERALIZED WEAKNESS (Acute) dehydartion (Acute) gait disorder (Acute) hypothyroidm (Acute) osteoporosis (Acute) prerenal azotemiaa improving (Acute) - Assessment Assessment: Impression: 1. UTI - E coli. 2. JORDI 3. HTN. Recommendations: Continue cipro po bid for 7 days. Meanwhile, follow up on renal US. Nutritional Asmnt/Malnutr-PDOC - Dietary Evaluation Malnutrition Findings (Please click <Entered> for more info): Nutritional Asmnt/Malnutrition Start: 07/24/16 17: 36 Text: Status: Complete Freq: Document 07/24/16 17:36 GSUN (Rec: 07/24/16 17:51 [email or web address] [email or web address]) Nutritional Asmnt/Malnutrition Patient General Information Nutritional Screening High Risk Screening Diagnosis ER: infectious encephalopathy, acute on chronic CKD, dehydration, FTT Pertinent Medical Hx/Surgical Hx ER: HTN, dyslipidemia, throid disorder, dementia, CKD Subjective Information 80 year old female from home. Pt was asleep during visit, spoke to son at bedside. Son reported pt fell around 1 month ago, was admitted to rehab and ordered appetite stimulant and was eating well with possible weight gain, pt was then discharged home with caregiver who comes by. Son began noticing recent decline in PO intake, barely ate breakfast and lunch. Son stated pt usually drinks Ensure at home. Son denied difficulties chewing/ swallowing. Current Diet Order/ Nutrition Support Low sodium 2gm Pertinent Medications Maalox, Lipitor, Catapres, Colace, Synthroid, Megace, Protonix Pertinent Labs 07/23: BUN 40H, creatinine 1.8H 07/24: BUN 33H (improving), creaitnine 1.5H (improving), potassium 4.1 Nutritional Hx/Data Height 1.6 m Height (Calculated Centimeters) 160.0 Current Weight (lbs) 68.13 kg Weight (Calculated Kilograms) 68.1 Weight (Calculated Grams) 53441.6 Usual body Weight (lbs) 130 [place] Body Weight 120 Weight Status Overweight GI Symptoms Food Allergies No Cultural/Ethnic/Yarsani Belief Unknown. Usual diet at home [place]. Skin Integrity/Comment: Non-pitting edema bilateral legs and right arm Current %PO Poor (25-49%) Estimated Nutritional Goals Calories/Kcals/Kg UBW 130lb/59kg, 30-35kcal/kg Kcals Calculated 1770-2065kcal Protein g/kg: UBW 1.2-1.4g/kg Protein Calculated 71-83g Fluid: ml 1770-2065ml (1ml/kcal) Nutritional Problem 1. Problem Problem Increased protein and kcal needs related to Etiology hypermetabolic state, recent decline in PO intake aeb Signs/Symptoms: ER: sepsis and FFT, son report PO intake <25% Intervention/Recommendation Comments 1. Continue with low sodium diet. Current PO intake is not meeting nutritional needs. 2. Recommend Novasource Renal BID for additional kcal and protein to better meet nutritional needs. Expected Outcomes/Goals Expected Outcomes/Goals 1. PO intake to meet 100% of estimated nutritional needs.
[2016-07-26] MEDS: Sodium Chloride 0.45% 1,000 ML IV SCH (03:31)
[2016-07-26 04:59] LABS: % BASOPHILS 0.4 % (0.0-2.0); % EOSINOPHILS 1.1 % (0.0-5.0); % LYMPHOCYTES 16.5 % (20.0-50.0); % MONOCYTES 6.4 % (2.0-10.0); % NEUTROPHILS 75.6 % (40.0-80.0); HEMATOCRIT 33.1 % (35.0-45.0); HEMOGLOBIN 11.4 gm/dL (11.7-16.1); MEAN CELL VOLUME 93.6 fl (81-100); MEAN CORPUSCULAR HEMOGLOBIN 32.2 pg (27.0-31.0); MEAN CORPUSCULAR HGB CONC 34.4 pg (28.0-36.0); MEAN PLATELET VOLUME 7.6 fl; NEUTROPHILE ABSOLUTE 5.4 Th/cmm (1.8-8.0); PLATELET COUNT 202 Th/cmm (150-400); RED BLOOD COUNT 3.54 Mil/cmm (3.80-5.20); RED CELL DISTRIBUTION WIDTH 13.2 % (11.5-20.0); WHITE BLOOD COUNT 7.2 Th/cmm (4.8-10.8)
[2016-07-26 05:59] LABS: POTASSIUM SERUM 3.9 mEq/L (3.5-5.1); SODIUM SERUM 136 mEq/L (136-145)
[2016-07-26 06:00] LABS: ANION GAP 9.2 (7.0-16.0); BUN - UREA NITROGEN 29 mg/dL (7-25); BUN/CREATININE RATIO 18.1; CALCIUM SERUM 8.6 mg/dL (8.6-10.3); CARBON DIOXIDE 21.7 mEq/L (21.0-31.0); CHLORIDE 109 mEq/L (98-107); CREATININE - SERUM 1.6 mg/dL (0.6-1.2); GLUCOSE 100 mg/dL (70-105); PHOSPHOROUS 3.1 mg/dL (2.5-5.0); URIC ACID 4.8 mg/dL (2.3-6.6)
--- NOTE | 2016-07-26 06:32 | Consultation ---
ATTENDING: Dr. Jer Chan, VARIOUS EXCEPTIONALITIES TEACHER: Dr. Jose Guzmán. REASON FOR CONSULTATION: Worsening kidney function, electrolyte imbalance and fluid management. History was obtained from patient's son, Richy. HISTORY OF PRESENT ILLNESS: This is an 80-year-old female with past medical history of chronic kidney disease, who came in because of generalized weakness. A few days prior to admission, the patient was on maintenance furosemide due to her ongoing Anasarca as well as possible congestive heart failure. This was subsequently discontinued. She developed generalized weakness associated with poor appetite and eventually failure to thrive. She was started on Megace. A few hours prior to admission, her generalized weakness deteriorated. Thus, she was transported to the Emergency Room. Her white count was 7.6. Chest x-ray revealed chronic lung changes, but no focal consolidation. Temperature was 97.1 degrees. Urinalysis was suggestive of urinary tract infection. She had no fever/chills, nausea and vomiting, diarrhea, abdominal pain, headaches, cough nor congestion. She came in with a BUN/creatinine of 40/1.8 and now her BUN/creatinine after hydration, improved to 30/1.5. PAST MEDICAL HISTORY: 1. Chronic kidney disease. 2. Hypothyroidism. 3. Essential hypertension with CKD. 4. Dyslipidemia. 5. Anemia of chronic disease. 6. Alzheimer dementia. 7. GERD. 8. Depression. 9. History of CHF. CURRENT MEDICATIONS: She is currently on donepezil, Bystolic, atorvastatin, ciprofloxacin, docusate sodium, citalopram, levothyroxine, megestrol acetate, multivitamins with minerals, pantoprazole, promethazine, clonidine. ALLERGIES: No known drug allergies. SOCIAL HISTORY: No history of alcohol or tobacco use. [facility]. FAMILY HISTORY: Unknown at the present time. REVIEW OF SYSTEMS: She did develop generalized weakness. No fever, no chills. Appetite had been very poor. HEENT: No mention of headaches or dizziness. CARDIORESPIRATORY: No shortness of breath, chest pain, palpitations, diaphoresis or cough. GASTROINTESTINAL: No nausea and vomiting, abdominal pain or cramping, hematemesis, melena, hematochezia, no diarrhea. ENDOCRINE: She has a history of hypothyroidism. No history and dyslipidemia, but no history of diabetes. MUSCULOSKELETAL: Multiple joint arthralgias. GENITOURINARY: History of chronic kidney disease. HEMATOLOGIC: She has mild anemia. NEUROPSYCHIATRIC: No syncopal episode or seizure activity. PHYSICAL EXAMINATION: GENERAL: The patient is alert, verbal, eating dinner, not in any form of distress. VITAL SIGNS: Her blood pressure is 141/68, pulse 61, temperature 97.1 degrees. SKIN: Poor turgor and warm. No rash, no jaundice appreciated. HEENT: Head normocephalic, atraumatic. EYES: Extraocular muscles intact. Pupils equal, round, reactive to light and accommodates. Anicteric sclerae, pink conjunctivae. Nose, midline nasal septum. Mouth, dry mucosa with poor dentition. NECK: Supple, no adenopathy, no thyromegaly, no bruits. Trachea palpated in the midline. CHEST AND CVS: S1, S2. No rub, murmur, no gallop appreciated. Point of maximal impulse fifth intercostal space, left midclavicular line. No abdominal or femoral bruits appreciated. LUNGS: Equal expansion. No use of accessory muscles. No supraclavicular retractions. Decreased breath sounds. Clear to auscultation without any wheeze. Breast symmetrical, without any discharge. ABDOMEN: Globular, soft, positive for bowel sounds. No bruits either diastolic or systolic. RECTAL: The patient refused. GENITOURINARY: Normal appearing female genitalia. MUSCULOSKELETAL: No effusions present in her joints with adequate range of motion. EXTREMITIES: No evidence of edema, cyanosis or clubbing with palpable femoral, but unable to fully appreciate popliteal and dorsalis pedis pulses. NEUROLOGIC: The patient is awake, verbal, able to respond to my inquires. However, she has a difficult time comprehending my neuro commands, so I was not able to pursue further by neuro exam. LABORATORY DATA: Revealed white count 6.5. Hemoglobin 11, hematocrit 32.5, platelets 199, polys 73.8%. Sodium 135, potassium 4.5, chloride 107, bicarb 21, BUN 30, creatinine 1.5, glucose 120, calcium 8.5, albumin is 3. TSH 17.55. IMPRESSION: 1. Chronic kidney disease, MDRD GFR 28.7 mL per minute, stage 4. The patient's chronic kidney disease is likely due to hypertensive nephrosclerosis with longstanding history of hypertension. Acute kidney injury is initially prerenal in nature. The patient has failure to thrive and unable to replenish her fluid losses. Her physical exam revealed poor skin turgor with dry oral mucosa. She has a very concentrated urine. She also admitted to being thirsty. These are all suggestive of underlying dehydration, which could ____ decrease in effective circulating volume. Thus, her prerenal azotemia may have progressed to acute tubular injury. She also has overwhelming sepsis due to complicated urinary tract infection and this may give raise to acute interstitial nephritis. 2.Generalized weakness with failure to thrive, possibly a combination of underlying sepsis due to her complicated urinary tract infection and severe hypothyroidism. 3.Hypothyroidism 4.Essential hypertension with chronic kidney disease. 5.Dyslipidemia. 6.Anemia of chronic disease. 7.Alzheimer dementia. 8.Gastroesophageal reflux disease, 9.Depression. 10.History of congestive heart failure. 11.Methicillin-resistant Staphylococcus aures of the nares. 12.Moderate malnutrition. PLAN: 1. Urine C and S. 2. Urine sodium, eosinophils and creatinine. 3. Continue IV fluids, but we will decrease the rate due to patient's age. 4. Renal ultrasound. 5. Urine microalbumin to creatinine ratio. 6. Encourage p.o. intake. 7. Continue antibiotics and adjust according cultures. Thank you, Dr. Chan for this consult. I will follow the patient closely with you. [facility]# [id number]
[2016-07-26] MEDS: Levothyroxine 0.125 Mg Tab PO SCH (06:42)
[2016-07-26 07:31] LABS: CHOLESTEROL 121 mg/dL (<200); TRIGLYCERIDES 96 mg/dL (<150)
--- NOTE | 2016-07-26 08:22 | General Progress Note ---
Subjective - Review of Systems Subjective: patient is awake has high tsh Objective - Results Result Diagrams: 07/26/16 04:37 07/26/16 04:37 Recent Labs: Laboratory Last Values WBC 7.2 Th/cmm (4.8-10.8) 07/26/16 04:37 RBC 3.54 Mil/cmm (3.80-5.20) L 07/26/16 04:37 Hgb 11.4 gm/dL (11.7-16.1) L 07/26/16 04:37 Hct 33.1 % (35.0-45.0) L 07/26/16 04:37 MCV 93.6 fl (81-100) 07/26/16 04:37 MCH 32.2 pg (27.0-31.0) H 07/26/16 04:37 MCHC Differential 34.4 pg (28.0-36.0) 07/26/16 04:37 RDW 13.2 % (11.5-20.0) 07/26/16 04:37 Plt Count 202 Th/cmm (150-400) 07/26/16 04:37 MPV 7.6 fl 07/26/16 04:37 Neutrophils % 75.6 % (40.0-80.0) 07/26/16 04:37 Lymphocytes % 16.5 % (20.0-50.0) L 07/26/16 04:37 Monocytes % 6.4 % (2.0-10.0) 07/26/16 04:37 Eosinophils % 1.1 % (0.0-5.0) 07/26/16 04:37 Basophils % 0.4 % (0.0-2.0) 07/26/16 04:37 PT 11.0 SECONDS (9.5-11.5) 07/23/16 17:15 INR 1.06 (0.5-1.4) 07/23/16 17:15 PTT (Actin FS) 25.7 SECONDS (26.0-38.0) L 07/23/16 17:15 Sodium 136 mEq/L (136-145) 07/26/16 04:37 Potassium 3.9 mEq/L (3.5-5.1) 07/26/16 04:37 Chloride 109 mEq/L (98-107) H 07/26/16 04:37 Carbon Dioxide 21.7 mEq/L (21.0-31.0) 07/26/16 04:37 Anion Gap 9.2 (7.0-16.0) 07/26/16 04:37 BUN 29 mg/dL (7-25) H 07/26/16 04:37 Creatinine 1.6 mg/dL (0.6-1.2) H 07/26/16 04:37 Est GFR ( Amer) TNP 07/26/16 04:37 Est GFR (Non-Af Amer) TNP 07/26/16 04:37 BUN/Creatinine Ratio 18.1 07/26/16 04:37 Glucose 100 mg/dL (70-105) 07/26/16 04:37 Whole Bld Lactic Acid 1.04 mmol/L (0.60-1.99) 07/23/16 17:15 Uric Acid 4.8 mg/dL (2.3-6.6) 07/26/16 04:37 Calcium 8.6 mg/dL (8.6-10.3) 07/26/16 04:37 Phosphorus 3.1 mg/dL (2.5-5.0) 07/26/16 04:37 Magnesium 2.0 mg/dL (1.9-2.7) 07/26/16 04:37 Total Bilirubin 0.4 mg/dL (0.3-1.0) 07/24/16 06:05 AST 12 U/L (13-39) L 07/24/16 06:05 ALT 13 U/L (7-52) 07/24/16 06:05 Alkaline Phosphatase 45 U/L (34-104) 07/24/16 06:05 Ammonia 25 umol/L (16-53) 07/26/16 07:10 Creatine Kinase 20 U/L (30-223) L 07/25/16 05:50 Total Protein 5.5 gm/dL (6.0-8.3) L 07/24/16 06:05 Albumin 3.0 gm/dL (3.7-5.3) L 07/24/16 06:05 Globulin 2.5 gm/dL 07/24/16 06:05 Albumin/Globulin Ratio 1.2 (1.0-1.8) 07/24/16 06:05 Triglycerides 96 mg/dL (<150) 07/26/16 04:37 Cholesterol 121 mg/dL (<200) 07/26/16 04:37 LDL Cholesterol Direct 78 mg/dL (75-193) 07/26/16 04:37 HDL Cholesterol 34 mg/dL (23-92) 07/26/16 04:37 TSH 17.55 uIU/ml (0.34-5.60) H 07/25/16 05:50 Urine Source [place] 07/23/16 17:30 Urine Color YELLOW 07/23/16 17:30 Urine Clarity CLOUDY (CLEAR) H 07/23/16 17:30 Urine pH 5.5 07/23/16 17:30 Ur Specific [place] 1.020 (1.005-1.030) 07/23/16 17:30 Urine Protein 100 mg/dL (NEGATIVE) H 07/23/16 17:30 Urine Glucose (UA) NEGATIVE mg/dL (NEGATIVE) 07/23/16 17:30 Urine Ketones NEGATIVE mg/dL (NEGATIVE) 07/23/16 17:30 Urine Blood MODERATE (NEGATIVE) H 07/23/16 17:30 Urine Nitrate NEGATIVE (NEGATIVE) 07/23/16 17:30 Urine Bilirubin NEGATIVE (NEGATIVE) 07/23/16 17:30 Urine Urobilinogen 0.2 E.U./dL (0.2 - 1.0) 07/23/16 17:30 Ur Leukocyte Esterase MODERATE (NEGATIVE) H 07/23/16 17:30 Urine RBC 2-5 /hpf (0-5) 07/23/16 17:30 Urine WBC 50-100 /hpf (0-5) H 07/23/16 17:30 Ur Epithelial Cells FEW /lpf (FEW) 07/23/16 17:30 Amorphous Sediment FEW URATES (NONE SEEN) 07/23/16 17:30 Urine Bacteria MANY /hpf (NONE SEEN) 07/23/16 17:30 Ur Random Sodium 60 mmol/L 07/25/16 23:40 Urine Creatinine 58.0 mg/dl (28.0-217.0) 07/25/16 23:40 - Physical Exam Vitals and I&O: Vital Signs Temp 97 F 07/26/16 04:54 Pulse 65 07/26/16 05:52 Resp 18 07/26/16 04:54 BP 178/87 07/26/16 05:52 Pulse Ox 92 07/26/16 04:54 Intake & Output 07/25/16 07/26/16 07/26/16 18:59 06:59 18:59 Intake Total 1550 250 Balance 1550 250 Intake: Oral 1550 250 Other: # Voids 4 1 Active Medications: Current Medications Acetaminophen (Tylenol) 650 mg PO Q4HR PRN PRN Reason: PAIN Stop: 09/21/16 22:09 Al Hydrox/Mg Hydrox/Simethicone (Maalox) 30 ml PO Q6H PRN PRN Reason: GERD Atorvastatin Calcium (Lipitor) 10 mg PO HS [facility] PRN Reason: Protocol Stop: 09/22/16 20:59 Last Admin: 07/25/16 21:19 Dose: 10 mg Ciprofloxacin (Cipro) 250 mg PO BID [facility] Stop: 09/23/16 08:59 Last Admin: 07/25/16 16:55 Dose: 250 mg Clonidine HCl (Catapres) 0.1 mg PO Q4HR PRN PRN Reason: SBP >160 Stop: 09/22/16 01:04 Last Admin: 07/26/16 04:52 Dose: 0.1 mg Clonidine HCl (Catapres) 0.2 mg PO BID [facility] Stop: 09/22/16 16:59 Last Admin: 07/25/16 16:55 Dose: 0.2 mg Docusate Sodium (Colace) 100 mg PO Q12H PRN PRN Reason: Constipation Stop: 09/21/16 22:09 Donepezil HCl (Aricept) 5 mg PO HS [facility] Stop: 09/23/16 20:59 Last Admin: 07/25/16 21:19 Dose: 5 mg Escitalopram Oxalate (Lexapro) 10 mg PO HS [facility] PRN Reason: Protocol Stop: 09/22/16 20:59 Last Admin: 07/25/16 21:19 Dose: 10 mg Sodium Chloride (Nacl 0.45%) 1,000 mls @ 100 mls/hr IV .Q10H [facility] Stop: 09/21/16 19:57 Last Admin: 07/26/16 03:31 Dose: 100 mls/hr Levothyroxine Sodium (Synthroid) 0.125 mg PO QDAC [facility] Stop: 09/24/16 07:29 Last Admin: 07/26/16 06:42 Dose: 0.125 mg Megestrol Acetate (Megace) 400 mg PO BID [facility] Stop: 09/22/16 08:59 Last Admin: 07/25/16 16:55 Dose: 400 mg Miscellaneous (Nebivolol Hcl [Bystolic]) 10 mg PO DAILY [facility] Stop: 09/22/16 08:59 Mupirocin (Bactroban Oint) 1 appl NS BID [facility] Stop: 07/30/16 09:01 Pantoprazole Sodium (Protonix) 40 mg PO DAILY [facility] Stop: 09/22/16 08:59 Last Admin: 07/25/16 09:27 Dose: 40 mg Promethazine HCl/Dextromethorphan (Phenergan Dm 6.25/15mg-5 Ml) 5 ml PO TID PRN PRN Reason: Cough Stop: 09/21/16 22:09 Assessment/Plan - Problem List Patient Problems: All Active Problems GENERALIZED WEAKNESS (Acute) dehydartion (Acute) gait disorder (Acute) hypothyroidm (Acute) osteoporosis (Acute) prerenal azotemiaa improving (Acute) - Assessment Assessment: confusion general weakness UTI HTN Hyperlipidemia thyroids disorder dementia - Plan Plan: monitor vitals/diet labs iv antibiotic fall precaution Nutritional Asmnt/Malnutr-PDOC - Dietary Evaluation Malnutrition Findings (Please click <Entered> for more info): Nutritional Asmnt/Malnutrition Start: 07/24/16 17: 36 Text: Status: Complete Freq: Document 07/24/16 17:36 GSUN (Rec: 07/24/16 17:51 [email or web address] [email or web address]) Nutritional Asmnt/Malnutrition Patient General Information Nutritional Screening High Risk Screening Diagnosis ER: infectious encephalopathy, acute on chronic CKD, dehydration, FTT Pertinent Medical Hx/Surgical Hx ER: HTN, dyslipidemia, throid disorder, dementia, CKD Subjective Information 80 year old female from home. Pt was asleep during visit, spoke to son at bedside. Son reported pt fell around 1 month ago, was admitted to rehab and ordered appetite stimulant and was eating well with possible weight gain, pt was then discharged home with caregiver who comes by. Son began noticing recent decline in PO intake, barely ate breakfast and lunch. Son stated pt usually drinks Ensure at home. Son denied difficulties chewing/ swallowing. Current Diet Order/ Nutrition Support Low sodium 2gm Pertinent Medications Maalox, Lipitor, Catapres, Colace, Synthroid, Megace, Protonix Pertinent Labs 07/23: BUN 40H, creatinine 1.8H 07/24: BUN 33H (improving), creaitnine 1.5H (improving), potassium 4.1 Nutritional Hx/Data Height 1.6 m Height (Calculated Centimeters) 160.0 Current Weight (lbs) 68.13 kg Weight (Calculated Kilograms) 68.1 Weight (Calculated Grams) 01887.6 Usual body Weight (lbs) 130 [place] Body Weight 120 Weight Status Overweight GI Symptoms Food Allergies No Cultural/Ethnic/[employer] Belief Unknown. Usual diet at home [place]. Skin Integrity/Comment: Non-pitting edema bilateral legs and right arm Current %PO Poor (25-49%) Estimated Nutritional Goals Calories/Kcals/Kg UBW 130lb/59kg, 30-35kcal/kg Kcals Calculated 1770-2065kcal Protein g/kg: UBW 1.2-1.4g/kg Protein Calculated 71-83g Fluid: ml 1770-2065ml (1ml/kcal) Nutritional Problem 1. Problem Problem Increased protein and kcal needs related to Etiology hypermetabolic state, recent decline in PO intake aeb Signs/Symptoms: ER: sepsis and FFT, son report PO intake <25% Intervention/Recommendation Comments 1. Continue with low sodium diet. Current PO intake is not meeting nutritional needs. 2. Recommend Novasource Renal BID for additional kcal and protein to better meet nutritional needs. Expected Outcomes/Goals Expected Outcomes/Goals 1. PO intake to meet 100% of estimated nutritional needs.
[2016-07-26] MEDS: Pantoprazole 40 mg EC Tab PO SCH (09:44)
[2016-07-26] MEDS: Multivitamin w/ Minerals Tab PO SCH (09:44)
--- NOTE | 2016-07-26 11:53 | History & Physical ---
HISTORY OF PRESENT ILLNESS: The patient is an 80-year-old. The patient complains of weakness. The patient noted to have been getting more and more confused. Poor appetite. Noted the patient having difficulty with walking. ____ the patient directly is able to answer questions, but definitely confused. The patient moving all extremities. PAST MEDICAL HISTORY: History of chronic kidney disease, hypothyroidism, hypertension, dyslipidemia, anemia, dementia, Alzheimer, gastroesophageal reflux, depression, CHF. MEDICATIONS: As per reconciliation. ALLERGIES: None. REVIEW OF SYSTEMS: No marked headache, confused. No chest pain, no shortness of breath. No cough, sputum or hemoptysis. No abdominal pain. No constipation or diarrhea. The patient is awake, alert, able to swallow, poor appetite. Getting more confused, weakness. PHYSICAL EXAMINATION: VITAL SIGNS: Temperature 98.2, blood pressure 140/66, pulse is around 65. NECK: Supple. No bruits. HEART: Sounds S1, S2. LUNGS: Clear. ABDOMEN: Soft. NEUROLOGIC: The patient is awake, alert. She gives me her name. She did not know her age. She does not know what day it is, what month it is, what year. She is able to name simple objects such as pen and glasses. Short term memory 0 out of 3. INVESTIGATIONS: I do not see any CT scan or carotid Doppler. LABORATORY DATA: WBC 7.2, hemoglobin 11.4, platelets 202. Sodium okay. BUN is 29. Creatinine 1.6. TSH is elevated at 17.55. UA, wbc's 50-100, bacteria present. IMPRESSION: 1. Encephalopathy. 2. Underlying dementia. 3. Urinary tract infection, probably making the dementia worse. 4. The patient has increasing weakness. 5. Hypothyroidism. 6. Hypertension. 7. Dyslipidemia. MANAGEMENT: I plan to do a CT scan, carotid Doppler, lab studies. JOB# [id number]
--- NOTE | 2016-07-26 14:14 | General Progress Note ---
Subjective - Review of Systems Service Date: 07/26/16 Subjective: alert, eating lunch Objective - Results Result Diagrams: 07/26/16 04:37 07/26/16 04:37 Recent Labs: Laboratory Last Values WBC 7.2 Th/cmm (4.8-10.8) 07/26/16 04:37 RBC 3.54 Mil/cmm (3.80-5.20) L 07/26/16 04:37 Hgb 11.4 gm/dL (11.7-16.1) L 07/26/16 04:37 Hct 33.1 % (35.0-45.0) L 07/26/16 04:37 MCV 93.6 fl (81-100) 07/26/16 04:37 MCH 32.2 pg (27.0-31.0) H 07/26/16 04:37 MCHC Differential 34.4 pg (28.0-36.0) 07/26/16 04:37 RDW 13.2 % (11.5-20.0) 07/26/16 04:37 Plt Count 202 Th/cmm (150-400) 07/26/16 04:37 MPV 7.6 fl 07/26/16 04:37 Neutrophils % 75.6 % (40.0-80.0) 07/26/16 04:37 Lymphocytes % 16.5 % (20.0-50.0) L 07/26/16 04:37 Monocytes % 6.4 % (2.0-10.0) 07/26/16 04:37 Eosinophils % 1.1 % (0.0-5.0) 07/26/16 04:37 Basophils % 0.4 % (0.0-2.0) 07/26/16 04:37 Eos Smear Source URINE 07/25/16 23:40 Eos Smear Total Cells NONE SEEN (NONE SEEN) 07/25/16 23:40 PT 11.0 SECONDS (9.5-11.5) 07/23/16 17:15 INR 1.06 (0.5-1.4) 07/23/16 17:15 PTT (Actin FS) 25.7 SECONDS (26.0-38.0) L 07/23/16 17:15 Sodium 136 mEq/L (136-145) 07/26/16 04:37 Potassium 3.9 mEq/L (3.5-5.1) 07/26/16 04:37 Chloride 109 mEq/L (98-107) H 07/26/16 04:37 Carbon Dioxide 21.7 mEq/L (21.0-31.0) 07/26/16 04:37 Anion Gap 9.2 (7.0-16.0) 07/26/16 04:37 BUN 29 mg/dL (7-25) H 07/26/16 04:37 Creatinine 1.6 mg/dL (0.6-1.2) H 07/26/16 04:37 Est GFR ( Amer) TNP 07/26/16 04:37 Est GFR (Non-Af Amer) TNP 07/26/16 04:37 BUN/Creatinine Ratio 18.1 07/26/16 04:37 Glucose 100 mg/dL (70-105) 07/26/16 04:37 Whole Bld Lactic Acid 1.04 mmol/L (0.60-1.99) 07/23/16 17:15 Uric Acid 4.8 mg/dL (2.3-6.6) 07/26/16 04:37 Calcium 8.6 mg/dL (8.6-10.3) 07/26/16 04:37 Phosphorus 3.1 mg/dL (2.5-5.0) 07/26/16 04:37 Magnesium 2.0 mg/dL (1.9-2.7) 07/26/16 04:37 Total Bilirubin 0.4 mg/dL (0.3-1.0) 07/24/16 06:05 AST 12 U/L (13-39) L 07/24/16 06:05 ALT 13 U/L (7-52) 07/24/16 06:05 Alkaline Phosphatase 45 U/L (34-104) 07/24/16 06:05 Ammonia 25 umol/L (16-53) 07/26/16 07:10 Creatine Kinase 20 U/L (30-223) L 07/25/16 05:50 Total Protein 5.5 gm/dL (6.0-8.3) L 07/24/16 06:05 Albumin 3.0 gm/dL (3.7-5.3) L 07/24/16 06:05 Globulin 2.5 gm/dL 07/24/16 06:05 Albumin/Globulin Ratio 1.2 (1.0-1.8) 07/24/16 06:05 Triglycerides 96 mg/dL (<150) 07/26/16 04:37 Cholesterol 121 mg/dL (<200) 07/26/16 04:37 LDL Cholesterol Direct 78 mg/dL (75-193) 07/26/16 04:37 HDL Cholesterol 34 mg/dL (23-92) 07/26/16 04:37 TSH 17.55 uIU/ml (0.34-5.60) H 07/25/16 05:50 Urine Source [place] 07/23/16 17:30 Urine Color YELLOW 07/23/16 17:30 Urine Clarity CLOUDY (CLEAR) H 07/23/16 17:30 Urine pH 5.5 07/23/16 17:30 Ur Specific [place] 1.020 (1.005-1.030) 07/23/16 17:30 Urine Protein 100 mg/dL (NEGATIVE) H 07/23/16 17:30 Urine Glucose (UA) NEGATIVE mg/dL (NEGATIVE) 07/23/16 17:30 Urine Ketones NEGATIVE mg/dL (NEGATIVE) 07/23/16 17:30 Urine Blood MODERATE (NEGATIVE) H 07/23/16 17:30 Urine Nitrate NEGATIVE (NEGATIVE) 07/23/16 17:30 Urine Bilirubin NEGATIVE (NEGATIVE) 07/23/16 17:30 Urine Urobilinogen 0.2 E.U./dL (0.2 - 1.0) 07/23/16 17:30 Ur Leukocyte Esterase MODERATE (NEGATIVE) H 07/23/16 17:30 Urine RBC 2-5 /hpf (0-5) 07/23/16 17:30 Urine WBC 50-100 /hpf (0-5) H 07/23/16 17:30 Ur Epithelial Cells FEW /lpf (FEW) 07/23/16 17:30 Amorphous Sediment FEW URATES (NONE SEEN) 07/23/16 17:30 Urine Bacteria MANY /hpf (NONE SEEN) 07/23/16 17:30 Ur Random Sodium 60 mmol/L 07/25/16 23:40 Urine Creatinine 58.0 mg/dl (28.0-217.0) 07/25/16 23:40 - Physical Exam Vitals and I&O: Vital Signs Temp 97.4 F 07/26/16 12:00 Pulse 62 07/26/16 12:00 Resp 19 07/26/16 12:00 BP 136/69 07/26/16 12:00 Pulse Ox 99 07/26/16 12:00 Intake & Output 07/25/16 07/26/16 07/26/16 18:59 06:59 18:59 Intake Total 1550 250 150 Balance 1550 250 150 Intake: Oral 1550 250 150 Other: # Voids 4 1 Active Medications: Current Medications Acetaminophen (Tylenol) 650 mg PO Q4HR PRN PRN Reason: PAIN Stop: 09/21/16 22:09 Al Hydrox/Mg Hydrox/Simethicone (Maalox) 30 ml PO Q6H PRN PRN Reason: GERD Atorvastatin Calcium (Lipitor) 10 mg PO HS [facility] PRN Reason: Protocol Stop: 09/22/16 20:59 Last Admin: 07/25/16 21:19 Dose: 10 mg Ciprofloxacin (Cipro) 250 mg PO BID [facility] Stop: 09/23/16 08:59 Last Admin: 07/26/16 09:44 Dose: 250 mg Clonidine HCl (Catapres) 0.1 mg PO Q4HR PRN PRN Reason: SBP >160 Stop: 09/22/16 01:04 Last Admin: 07/26/16 04:52 Dose: 0.1 mg Clonidine HCl (Catapres) 0.2 mg PO BID [facility] Stop: 09/22/16 16:59 Last Admin: 07/26/16 09:43 Dose: 0.2 mg Docusate Sodium (Colace) 100 mg PO Q12H PRN PRN Reason: Constipation Stop: 09/21/16 22:09 Donepezil HCl (Aricept) 5 mg PO HS [facility] Stop: 09/23/16 20:59 Last Admin: 07/25/16 21:19 Dose: 5 mg Escitalopram Oxalate (Lexapro) 10 mg PO HS [facility] PRN Reason: Protocol Stop: 09/22/16 20:59 Last Admin: 07/25/16 21:19 Dose: 10 mg Sodium Chloride (Nacl 0.45%) 1,000 mls @ 100 mls/hr IV .Q10H [facility] Stop: 09/21/16 19:57 Last Admin: 07/26/16 03:31 Dose: 100 mls/hr Levothyroxine Sodium (Synthroid) 0.125 mg PO QDAC [facility] Stop: 09/24/16 07:29 Last Admin: 07/26/16 06:42 Dose: 0.125 mg Megestrol Acetate (Megace) 400 mg PO BID [facility] Stop: 09/22/16 08:59 Last Admin: 07/26/16 09:42 Dose: 400 mg Miscellaneous (Nebivolol Hcl [Bystolic]) 10 mg PO DAILY [facility] Stop: 09/22/16 08:59 Mupirocin (Bactroban Oint) 1 appl NS BID [facility] Stop: 07/30/16 09:01 Last Admin: 07/26/16 09:41 Dose: 1 appl Pantoprazole Sodium (Protonix) 40 mg PO DAILY [facility] Stop: 09/22/16 08:59 Last Admin: 07/26/16 09:44 Dose: 40 mg Promethazine HCl/Dextromethorphan (Phenergan Dm 6.25/15mg-5 Ml) 5 ml PO TID PRN PRN Reason: Cough Stop: 09/21/16 22:09 General: Alert, Cooperative, No acute distress HEENT: Atraumatic, PERRLA, Mucous membr. moist/pink Neck: Supple, +2 carotid pulse wo bruit Cardiovascular: Regular rate, Normal S1, Normal S2 Lungs: Clear to auscultation Abdomen: Bowel sounds, Soft Extremities: no Edema Neurological: Normal tone, Sensation intact Skin: no Rash Psych/Mental Status: Mood NL Assessment/Plan - Problem List Patient Problems: All Active Problems GENERALIZED WEAKNESS (Acute) dehydartion (Acute) gait disorder (Acute) hypothyroidm (Acute) osteoporosis (Acute) prerenal azotemiaa improving (Acute) - Assessment Assessment: CKD 4 dehydration/ FTT hypothyroid Ess HTN dyslipidemia anemia CD depression mod malnutrition - Plan Plan: Lab - Result Diagrams 07/26/16 04:37 07/26/16 04:37 Current Medications Acetaminophen (Tylenol) 650 mg PO Q4HR PRN PRN Reason: PAIN Stop: 09/21/16 22:09 Al Hydrox/Mg Hydrox/Simethicone (Maalox) 30 ml PO Q6H PRN PRN Reason: GERD Atorvastatin Calcium (Lipitor) 10 mg PO HS [facility] PRN Reason: Protocol Stop: 09/22/16 20:59 Last Admin: 07/25/16 21:19 Dose: 10 mg Ciprofloxacin (Cipro) 250 mg PO BID [facility] Stop: 09/23/16 08:59 Last Admin: 07/26/16 09:44 Dose: 250 mg Clonidine HCl (Catapres) 0.1 mg PO Q4HR PRN PRN Reason: SBP >160 Stop: 09/22/16 01:04 Last Admin: 07/26/16 04:52 Dose: 0.1 mg Clonidine HCl (Catapres) 0.2 mg PO BID [facility] Stop: 09/22/16 16:59 Last Admin: 07/26/16 09:43 Dose: 0.2 mg Docusate Sodium (Colace) 100 mg PO Q12H PRN PRN Reason: Constipation Stop: 09/21/16 22:09 Donepezil HCl (Aricept) 5 mg PO HS [facility] Stop: 09/23/16 20:59 Last Admin: 07/25/16 21:19 Dose: 5 mg Escitalopram Oxalate (Lexapro) 10 mg PO HS [facility] PRN Reason: Protocol Stop: 09/22/16 20:59 Last Admin: 07/25/16 21:19 Dose: 10 mg Sodium Chloride (Nacl 0.45%) 1,000 mls @ 100 mls/hr IV .Q10H [facility] Stop: 09/21/16 19:57 Last Admin: 07/26/16 03:31 Dose: 100 mls/hr Levothyroxine Sodium (Synthroid) 0.125 mg PO QDAC [facility] Stop: 09/24/16 07:29 Last Admin: 07/26/16 06:42 Dose: 0.125 mg Megestrol Acetate (Megace) 400 mg PO BID [facility] Stop: 09/22/16 08:59 Last Admin: 07/26/16 09:42 Dose: 400 mg Miscellaneous (Nebivolol Hcl [Bystolic]) 10 mg PO DAILY [facility] Stop: 09/22/16 08:59 Mupirocin (Bactroban Oint) 1 appl NS BID [facility] Stop: 07/30/16 09:01 Last Admin: 07/26/16 09:41 Dose: 1 appl Pantoprazole Sodium (Protonix) 40 mg PO DAILY [facility] Stop: 09/22/16 08:59 Last Admin: 07/26/16 09:44 Dose: 40 mg Promethazine HCl/Dextromethorphan (Phenergan Dm 6.25/15mg-5 Ml) 5 ml PO TID PRN PRN Reason: Cough Stop: 09/21/16 22:09 cr. stable @ 1.6 continue ivf maintain abx encouraged po intake discussed w/ daughter @ bedside Nutritional Asmnt/Malnutr-PDOC - Dietary Evaluation Malnutrition Findings (Please click <Entered> for more info): Nutritional Asmnt/Malnutrition Start: 07/24/16 17: 36 Text: Status: Complete Freq: Document 07/24/16 17:36 GSUN (Rec: 07/24/16 17:51 GSUN [email or web address]) Nutritional Asmnt/Malnutrition Patient General Information Nutritional Screening High Risk Screening Diagnosis ER: infectious encephalopathy, acute on chronic CKD, dehydration, FTT Pertinent Medical Hx/Surgical Hx ER: HTN, dyslipidemia, throid disorder, dementia, CKD Subjective Information 80 year old female from home. Pt was asleep during visit, spoke to son at bedside. Son reported pt fell around 1 month ago, was admitted to rehab and ordered appetite stimulant and was eating well with possible weight gain, pt was then discharged home with caregiver who comes by. Son began noticing recent decline in PO intake, barely ate breakfast and lunch. Son stated pt usually drinks Ensure at home. Son denied difficulties chewing/ swallowing. Current Diet Order/ Nutrition Support Low sodium 2gm Pertinent Medications Maalox, Lipitor, Catapres, Colace, Synthroid, Megace, Protonix Pertinent Labs 07/23: BUN 40H, creatinine 1.8H 07/24: BUN 33H (improving), creaitnine 1.5H (improving), potassium 4.1 Nutritional Hx/Data Height 1.6 m Height (Calculated Centimeters) 160.0 Current Weight (lbs) 68.13 kg Weight (Calculated Kilograms) 68.1 Weight (Calculated Grams) 79325.6 Usual body Weight (lbs) 130 [place] Body Weight 120 Weight Status Overweight GI Symptoms Food Allergies No Cultural/Ethnic/Islam Belief Unknown. Usual diet at home [place]. Skin Integrity/Comment: Non-pitting edema bilateral legs and right arm Current %PO Poor (25-49%) Estimated Nutritional Goals Calories/Kcals/Kg UBW 130lb/59kg, 30-35kcal/kg Kcals Calculated 1770-2065kcal Protein g/kg: UBW 1.2-1.4g/kg Protein Calculated 71-83g Fluid: ml 1770-2065ml (1ml/kcal) Nutritional Problem 1. Problem Problem Increased protein and kcal needs related to Etiology hypermetabolic state, recent decline in PO intake aeb Signs/Symptoms: ER: sepsis and FFT, son report PO intake <25% Intervention/Recommendation Comments 1. Continue with low sodium diet. Current PO intake is not meeting nutritional needs. 2. Recommend Novasource Renal BID for additional kcal and protein to better meet nutritional needs. Expected Outcomes/Goals Expected Outcomes/Goals 1. PO intake to meet 100% of estimated nutritional needs.
--- NOTE | 2016-07-26 15:51 | Diagnostic Imaging Report ---
Renal ultrasound HISTORY: Pain, pyelonephritis, hydronephrosis The right kidney measures 9.1 x 3.9 x 3.8 cm. In approximately 3.8 x 3.0 x 3.1 cm sonolucent lesion is seen in the upper pole consistent with a cyst. No hydronephrosis. The left kidney is slightly decreased in size (8.8 x 4.9 x 5.3 cm). No focal lesions. No hydronephrosis. No abnormality seen in the region of the urinary bladder. Patient was unable to void for assessment of residual volume. IMPRESSION: 1. Findings consistent with a right renal cyst 2. Slightly decreased size of the left kidney 3. No hydronephrosis 4. The patient was unable to void for assessment of residual volume.
[2016-07-26] MEDS: Atorvastatin Calcium 10 MG TAB PO SCH (20:43)
[2016-07-27] MEDS: Sodium Chloride 0.45% 1,000 ML IV SCH ×2 (04:28→16:25)
[2016-07-27 05:14] LABS: % BASOPHILS 0.3 % (0.0-2.0); % EOSINOPHILS 1.1 % (0.0-5.0); % LYMPHOCYTES 17.3 % (20.0-50.0); % MONOCYTES 6.7 % (2.0-10.0); % NEUTROPHILS 74.6 % (40.0-80.0); HEMOGLOBIN 10.4 gm/dL (11.7-16.1); MEAN CELL VOLUME 93.3 fl (81-100); MEAN CORPUSCULAR HEMOGLOBIN 31.2 pg (27.0-31.0); MEAN CORPUSCULAR HGB CONC 33.4 pg (28.0-36.0); MEAN PLATELET VOLUME 7.7 fl; NEUTROPHILE ABSOLUTE 4.5 Th/cmm (1.8-8.0); PLATELET COUNT 197 Th/cmm (150-400); RED BLOOD COUNT 3.33 Mil/cmm (3.80-5.20); RED CELL DISTRIBUTION WIDTH 13.5 % (11.5-20.0)
[2016-07-27 05:31] LABS: ANION GAP 8.9 (7.0-16.0); BUN - UREA NITROGEN 32 mg/dL (7-25); BUN/CREATININE RATIO 21.3; CALCIUM SERUM 8.4 mg/dL (8.6-10.3); CHLORIDE 109 mEq/L (98-107); CREATININE - SERUM 1.5 mg/dL (0.6-1.2); GLUCOSE 111 mg/dL (70-105); POTASSIUM SERUM 3.9 mEq/L (3.5-5.1); SODIUM SERUM 136 mEq/L (136-145)
[2016-07-27] MEDS: Levothyroxine 0.125 Mg Tab PO SCH (06:46)
--- NOTE | 2016-07-27 09:24 | General Progress Note ---
Subjective - Review of Systems Subjective: patient is awake has high tsh Objective - Results Result Diagrams: 07/27/16 04:48 07/27/16 04:48 Recent Labs: Laboratory Last Values WBC 6.0 Th/cmm (4.8-10.8) 07/27/16 04:48 RBC 3.33 Mil/cmm (3.80-5.20) L 07/27/16 04:48 Hgb 10.4 gm/dL (11.7-16.1) L 07/27/16 04:48 Hct 31.0 % (35.0-45.0) L 07/27/16 04:48 MCV 93.3 fl (81-100) 07/27/16 04:48 MCH 31.2 pg (27.0-31.0) H 07/27/16 04:48 MCHC Differential 33.4 pg (28.0-36.0) 07/27/16 04:48 RDW 13.5 % (11.5-20.0) 07/27/16 04:48 Plt Count 197 Th/cmm (150-400) 07/27/16 04:48 MPV 7.7 fl 07/27/16 04:48 Neutrophils % 74.6 % (40.0-80.0) 07/27/16 04:48 Lymphocytes % 17.3 % (20.0-50.0) L 07/27/16 04:48 Monocytes % 6.7 % (2.0-10.0) 07/27/16 04:48 Eosinophils % 1.1 % (0.0-5.0) 07/27/16 04:48 Basophils % 0.3 % (0.0-2.0) 07/27/16 04:48 Eos Smear Source URINE 07/25/16 23:40 Eos Smear Total Cells NONE SEEN (NONE SEEN) 07/25/16 23:40 PT 11.0 SECONDS (9.5-11.5) 07/23/16 17:15 INR 1.06 (0.5-1.4) 07/23/16 17:15 PTT (Actin FS) 25.7 SECONDS (26.0-38.0) L 07/23/16 17:15 Sodium 136 mEq/L (136-145) 07/27/16 04:48 Potassium 3.9 mEq/L (3.5-5.1) 07/27/16 04:48 Chloride 109 mEq/L (98-107) H 07/27/16 04:48 Carbon Dioxide 22.0 mEq/L (21.0-31.0) 07/27/16 04:48 Anion Gap 8.9 (7.0-16.0) 07/27/16 04:48 BUN 32 mg/dL (7-25) H 07/27/16 04:48 Creatinine 1.5 mg/dL (0.6-1.2) H 07/27/16 04:48 Est GFR ( Amer) TNP 07/27/16 04:48 Est GFR (Non-Af Amer) TNP 07/27/16 04:48 BUN/Creatinine Ratio 21.3 07/27/16 04:48 Glucose 111 mg/dL (70-105) H 07/27/16 04:48 Whole Bld Lactic Acid 1.04 mmol/L (0.60-1.99) 07/23/16 17:15 Uric Acid 4.8 mg/dL (2.3-6.6) 07/26/16 04:37 Calcium 8.4 mg/dL (8.6-10.3) L 07/27/16 04:48 Phosphorus 3.1 mg/dL (2.5-5.0) 07/26/16 04:37 Magnesium 2.0 mg/dL (1.9-2.7) 07/26/16 04:37 Total Bilirubin 0.4 mg/dL (0.3-1.0) 07/24/16 06:05 AST 12 U/L (13-39) L 07/24/16 06:05 ALT 13 U/L (7-52) 07/24/16 06:05 Alkaline Phosphatase 45 U/L (34-104) 07/24/16 06:05 Ammonia 25 umol/L (16-53) 07/26/16 07:10 Creatine Kinase 18 U/L (30-223) L 07/27/16 04:48 Total Protein 5.5 gm/dL (6.0-8.3) L 07/24/16 06:05 Albumin 3.0 gm/dL (3.7-5.3) L 07/24/16 06:05 Globulin 2.5 gm/dL 07/24/16 06:05 Albumin/Globulin Ratio 1.2 (1.0-1.8) 07/24/16 06:05 Triglycerides 96 mg/dL (<150) 07/26/16 04:37 Cholesterol 121 mg/dL (<200) 07/26/16 04:37 LDL Cholesterol Direct 78 mg/dL (75-193) 07/26/16 04:37 HDL Cholesterol 34 mg/dL (23-92) 07/26/16 04:37 TSH 17.55 uIU/ml (0.34-5.60) H 07/25/16 05:50 Urine Source [place] 07/23/16 17:30 Urine Color YELLOW 07/23/16 17:30 Urine Clarity CLOUDY (CLEAR) H 07/23/16 17:30 Urine pH 5.5 07/23/16 17:30 Ur Specific [place] 1.020 (1.005-1.030) 07/23/16 17:30 Urine Protein 100 mg/dL (NEGATIVE) H 07/23/16 17:30 Urine Glucose (UA) NEGATIVE mg/dL (NEGATIVE) 07/23/16 17:30 Urine Ketones NEGATIVE mg/dL (NEGATIVE) 07/23/16 17:30 Urine Blood MODERATE (NEGATIVE) H 07/23/16 17:30 Urine Nitrate NEGATIVE (NEGATIVE) 07/23/16 17:30 Urine Bilirubin NEGATIVE (NEGATIVE) 07/23/16 17:30 Urine Urobilinogen 0.2 E.U./dL (0.2 - 1.0) 07/23/16 17:30 Ur Leukocyte Esterase MODERATE (NEGATIVE) H 07/23/16 17:30 Urine RBC 2-5 /hpf (0-5) 07/23/16 17:30 Urine WBC 50-100 /hpf (0-5) H 07/23/16 17:30 Ur Epithelial Cells FEW /lpf (FEW) 07/23/16 17:30 Amorphous Sediment FEW URATES (NONE SEEN) 07/23/16 17:30 Urine Bacteria MANY /hpf (NONE SEEN) 07/23/16 17:30 Ur Random Sodium 60 mmol/L 07/25/16 23:40 Urine Creatinine 58.0 mg/dl (28.0-217.0) 07/25/16 23:40 - Physical Exam Vitals and I&O: Vital Signs Temp 97.6 F 03/11/17 04:00 Pulse 72 07/27/16 04:00 Resp 18 07/27/16 04:00 BP 166/85 07/27/16 04:00 Pulse Ox 97 07/27/16 00:00 Intake & Output 07/26/16 07/27/16 07/27/16 18:59 06:59 18:59 Intake Total 1350 100 Balance 1350 100 Intake: Intake, IV Amount 1000 Sodium Chloride 0.45% 1, 1000 000 ml @ 100 mls/hr IV . Q10H [facility] Rx#:[id number] Oral 350 100 Other: # Voids 3 1 Active Medications: Current Medications Acetaminophen (Tylenol) 650 mg PO Q4HR PRN PRN Reason: PAIN Stop: 09/21/16 22:09 Al Hydrox/Mg Hydrox/Simethicone (Maalox) 30 ml PO Q6H PRN PRN Reason: GERD Atorvastatin Calcium (Lipitor) 10 mg PO HS [facility] PRN Reason: Protocol Stop: 09/22/16 20:59 Last Admin: 07/26/16 20:43 Dose: 10 mg Ciprofloxacin (Cipro) 250 mg PO BID [facility] Stop: 09/23/16 08:59 Last Admin: 07/26/16 18:12 Dose: 250 mg Clonidine HCl (Catapres) 0.1 mg PO Q4HR PRN PRN Reason: SBP >160 Stop: 09/22/16 01:04 Last Admin: 07/26/16 04:52 Dose: 0.1 mg Clonidine HCl (Catapres) 0.2 mg PO BID [facility] Stop: 09/22/16 16:59 Last Admin: 07/26/16 18:07 Dose: 0.2 mg Docusate Sodium (Colace) 100 mg PO Q12H PRN PRN Reason: Constipation Stop: 09/21/16 22:09 Donepezil HCl (Aricept) 5 mg PO HS [facility] Stop: 09/23/16 20:59 Last Admin: 07/26/16 20:43 Dose: 5 mg Escitalopram Oxalate (Lexapro) 10 mg PO HS [facility] PRN Reason: Protocol Stop: 09/22/16 20:59 Last Admin: 07/26/16 20:43 Dose: 10 mg Sodium Chloride (Nacl 0.45%) 1,000 mls @ 100 mls/hr IV .Q10H [facility] Stop: 09/21/16 19:57 Last Admin: 07/27/16 04:28 Dose: 100 mls/hr Levothyroxine Sodium (Synthroid) 0.125 mg PO QDAC [facility] Stop: 09/24/16 07:29 Last Admin: 07/27/16 06:46 Dose: 0.125 mg Megestrol Acetate (Megace) 400 mg PO BID [facility] Stop: 09/22/16 08:59 Last Admin: 07/26/16 18:08 Dose: 400 mg Miscellaneous (Nebivolol Hcl [Bystolic]) 10 mg PO DAILY [facility] Stop: 09/22/16 08:59 Mupirocin (Bactroban Oint) 1 appl NS BID [facility] Stop: 07/30/16 09:01 Last Admin: 07/26/16 18:14 Dose: 1 appl Pantoprazole Sodium (Protonix) 40 mg PO DAILY [facility] Stop: 09/22/16 08:59 Last Admin: 07/26/16 09:44 Dose: 40 mg Promethazine HCl/Dextromethorphan (Phenergan Dm 6.25/15mg-5 Ml) 5 ml PO TID PRN PRN Reason: Cough Stop: 09/21/16 22:09 General: Cooperative, No acute distress Neck: Supple Cardiovascular: Regular rate Lungs: Clear to auscultation Assessment/Plan - Problem List Patient Problems: All Active Problems GENERALIZED WEAKNESS (Acute) dehydartion (Acute) gait disorder (Acute) hypothyroidm (Acute) osteoporosis (Acute) prerenal azotemiaa improving (Acute) - Assessment Assessment: confusion general weakness UTI HTN Hyperlipidemia thyroids disorder dementia - Plan Plan: monitor vitals/diet labs iv antibiotic fall precaution Nutritional Asmnt/Malnutr-PDOC - Dietary Evaluation Malnutrition Findings (Please click <Entered> for more info): Nutritional Asmnt/Malnutrition Start: 07/24/16 17: 36 Text: Status: Complete Freq: Document 07/24/16 17:36 GSUN (Rec: 07/24/16 17:51 GSUN [email or web address]) Nutritional Asmnt/Malnutrition Patient General Information Nutritional Screening High Risk Screening Diagnosis ER: infectious encephalopathy, acute on chronic CKD, dehydration, FTT Pertinent Medical Hx/Surgical Hx ER: HTN, dyslipidemia, throid disorder, dementia, CKD Subjective Information 80 year old female from home. Pt was asleep during visit, spoke to son at bedside. Son reported pt fell around 1 month ago, was admitted to rehab and ordered appetite stimulant and was eating well with possible weight gain, pt was then discharged home with caregiver who comes by. Son began noticing recent decline in PO intake, barely ate breakfast and lunch. Son stated pt usually drinks Ensure at home. Son denied difficulties chewing/ swallowing. Current Diet Order/ Nutrition Support Low sodium 2gm Pertinent Medications Maalox, Lipitor, Catapres, Colace, Synthroid, Megace, Protonix Pertinent Labs 07/23: BUN 40H, creatinine 1.8H 07/24: BUN 33H (improving), creaitnine 1.5H (improving), potassium 4.1 Nutritional Hx/Data Height 1.6 m Height (Calculated Centimeters) 160.0 Current Weight (lbs) 68.13 kg Weight (Calculated Kilograms) 68.1 Weight (Calculated Grams) 11985.6 Usual body Weight (lbs) 130 [place] Body Weight 120 Weight Status Overweight GI Symptoms Food Allergies No Cultural/Ethnic/Anabaptist Belief Unknown. Usual diet at home [place]. Skin Integrity/Comment: Non-pitting edema bilateral legs and right arm Current %PO Poor (25-49%) Estimated Nutritional Goals Calories/Kcals/Kg UBW 130lb/59kg, 30-35kcal/kg Kcals Calculated 1770-2065kcal Protein g/kg: UBW 1.2-1.4g/kg Protein Calculated 71-83g Fluid: ml 1770-2065ml (1ml/kcal) Nutritional Problem 1. Problem Problem Increased protein and kcal needs related to Etiology hypermetabolic state, recent decline in PO intake aeb Signs/Symptoms: ER: sepsis and FFT, son report PO intake <25% Intervention/Recommendation Comments 1. Continue with low sodium diet. Current PO intake is not meeting nutritional needs. 2. Recommend Novasource Renal BID for additional kcal and protein to better meet nutritional needs. Expected Outcomes/Goals Expected Outcomes/Goals 1. PO intake to meet 100% of estimated nutritional needs.
[2016-07-27] MEDS: Pantoprazole 40 mg EC Tab PO SCH (09:43)
[2016-07-27] MEDS: Multivitamin w/ Minerals Tab PO SCH (09:43)
--- NOTE | 2016-07-27 15:08 | General Progress Note ---
Subjective - Review of Systems Service Date: 07/27/16 (alert, verbal) Subjective: alert, verbal, tolerating meals Objective - Results Result Diagrams: 07/27/16 04:48 07/27/16 04:48 Recent Labs: Laboratory Last Values WBC 6.0 Th/cmm (4.8-10.8) 07/27/16 04:48 RBC 3.33 Mil/cmm (3.80-5.20) L 07/27/16 04:48 Hgb 10.4 gm/dL (11.7-16.1) L 07/27/16 04:48 Hct 31.0 % (35.0-45.0) L 07/27/16 04:48 MCV 93.3 fl (81-100) 07/27/16 04:48 MCH 31.2 pg (27.0-31.0) H 07/27/16 04:48 MCHC Differential 33.4 pg (28.0-36.0) 07/27/16 04:48 RDW 13.5 % (11.5-20.0) 07/27/16 04:48 Plt Count 197 Th/cmm (150-400) 07/27/16 04:48 MPV 7.7 fl 07/27/16 04:48 Neutrophils % 74.6 % (40.0-80.0) 07/27/16 04:48 Lymphocytes % 17.3 % (20.0-50.0) L 07/27/16 04:48 Monocytes % 6.7 % (2.0-10.0) 07/27/16 04:48 Eosinophils % 1.1 % (0.0-5.0) 07/27/16 04:48 Basophils % 0.3 % (0.0-2.0) 07/27/16 04:48 Eos Smear Source URINE 07/25/16 23:40 Eos Smear Total Cells NONE SEEN (NONE SEEN) 07/25/16 23:40 PT 11.0 SECONDS (9.5-11.5) 07/23/16 17:15 INR 1.06 (0.5-1.4) 07/23/16 17:15 PTT (Actin FS) 25.7 SECONDS (26.0-38.0) L 07/23/16 17:15 Sodium 136 mEq/L (136-145) 07/27/16 04:48 Potassium 3.9 mEq/L (3.5-5.1) 07/27/16 04:48 Chloride 109 mEq/L (98-107) H 07/27/16 04:48 Carbon Dioxide 22.0 mEq/L (21.0-31.0) 07/27/16 04:48 Anion Gap 8.9 (7.0-16.0) 07/27/16 04:48 BUN 32 mg/dL (7-25) H 07/27/16 04:48 Creatinine 1.5 mg/dL (0.6-1.2) H 07/27/16 04:48 Est GFR ( Amer) TNP 07/27/16 04:48 Est GFR (Non-Af Amer) TNP 07/27/16 04:48 BUN/Creatinine Ratio 21.3 07/27/16 04:48 Glucose 111 mg/dL (70-105) H 07/27/16 04:48 Whole Bld Lactic Acid 1.04 mmol/L (0.60-1.99) 07/23/16 17:15 Uric Acid 4.8 mg/dL (2.3-6.6) 07/26/16 04:37 Calcium 8.4 mg/dL (8.6-10.3) L 07/27/16 04:48 Phosphorus 3.1 mg/dL (2.5-5.0) 07/26/16 04:37 Magnesium 2.0 mg/dL (1.9-2.7) 07/26/16 04:37 Total Bilirubin 0.4 mg/dL (0.3-1.0) 07/24/16 06:05 AST 12 U/L (13-39) L 07/24/16 06:05 ALT 13 U/L (7-52) 07/24/16 06:05 Alkaline Phosphatase 45 U/L (34-104) 07/24/16 06:05 Ammonia 25 umol/L (16-53) 07/26/16 07:10 Creatine Kinase 18 U/L (30-223) L 07/27/16 04:48 C-Reactive Protein mg/dL (0.0-0.9) 07/27/16 04:48 Total Protein 5.5 gm/dL (6.0-8.3) L 07/24/16 06:05 Albumin 3.0 gm/dL (3.7-5.3) L 07/24/16 06:05 Globulin 2.5 gm/dL 07/24/16 06:05 Albumin/Globulin Ratio 1.2 (1.0-1.8) 07/24/16 06:05 Triglycerides 96 mg/dL (<150) 07/26/16 04:37 Cholesterol 121 mg/dL (<200) 07/26/16 04:37 LDL Cholesterol Direct 78 mg/dL (75-193) 07/26/16 04:37 HDL Cholesterol 34 mg/dL (23-92) 07/26/16 04:37 TSH 17.55 uIU/ml (0.34-5.60) H 07/25/16 05:50 Urine Source [place] 07/23/16 17:30 Urine Color YELLOW 07/23/16 17:30 Urine Clarity CLOUDY (CLEAR) H 07/23/16 17:30 Urine pH 5.5 07/23/16 17:30 Ur Specific [place] 1.020 (1.005-1.030) 07/23/16 17:30 Urine Protein 100 mg/dL (NEGATIVE) H 07/23/16 17:30 Urine Glucose (UA) NEGATIVE mg/dL (NEGATIVE) 07/23/16 17:30 Urine Ketones NEGATIVE mg/dL (NEGATIVE) 07/23/16 17:30 Urine Blood MODERATE (NEGATIVE) H 07/23/16 17:30 Urine Nitrate NEGATIVE (NEGATIVE) 07/23/16 17:30 Urine Bilirubin NEGATIVE (NEGATIVE) 07/23/16 17:30 Urine Urobilinogen 0.2 E.U./dL (0.2 - 1.0) 07/23/16 17:30 Ur Leukocyte Esterase MODERATE (NEGATIVE) H 07/23/16 17:30 Urine RBC 2-5 /hpf (0-5) 07/23/16 17:30 Urine WBC 50-100 /hpf (0-5) H 07/23/16 17:30 Ur Epithelial Cells FEW /lpf (FEW) 07/23/16 17:30 Amorphous Sediment FEW URATES (NONE SEEN) 07/23/16 17:30 Urine Bacteria MANY /hpf (NONE SEEN) 07/23/16 17:30 Ur Random Sodium 60 mmol/L 07/25/16 23:40 Urine Creatinine 58.0 mg/dl (28.0-217.0) 07/25/16 23:40 - Physical Exam Vitals and I&O: Vital Signs Temp 98.2 F 07/27/16 12:00 Pulse 62 07/27/16 12:00 Resp 18 07/27/16 12:00 BP 150/70 07/27/16 12:00 Pulse Ox 96 07/27/16 12:00 Intake & Output 07/26/16 07/27/16 07/27/16 18:59 06:59 18:59 Intake Total 1350 100 Balance 1350 100 Intake: Intake, IV Amount 1000 Sodium Chloride 0.45% 1, 1000 000 ml @ 100 mls/hr IV . Q10H [facility] Rx#:[id number] Oral 350 100 Other: # Voids 3 1 Active Medications: Current Medications Acetaminophen (Tylenol) 650 mg PO Q4HR PRN PRN Reason: PAIN Stop: 09/21/16 22:09 Al Hydrox/Mg Hydrox/Simethicone (Maalox) 30 ml PO Q6H PRN PRN Reason: GERD Atorvastatin Calcium (Lipitor) 10 mg PO HS [facility] PRN Reason: Protocol Stop: 09/22/16 20:59 Last Admin: 07/26/16 20:43 Dose: 10 mg Ciprofloxacin (Cipro) 250 mg PO BID [facility] Stop: 09/23/16 08:59 Last Admin: 07/27/16 09:43 Dose: 250 mg Clonidine HCl (Catapres) 0.1 mg PO Q4HR PRN PRN Reason: SBP >160 Stop: 09/22/16 01:04 Last Admin: 07/26/16 04:52 Dose: 0.1 mg Clonidine HCl (Catapres) 0.2 mg PO BID [facility] Stop: 09/22/16 16:59 Last Admin: 07/27/16 09:48 Dose: Not Given Docusate Sodium (Colace) 100 mg PO Q12H PRN PRN Reason: Constipation Stop: 09/21/16 22:09 Donepezil HCl (Aricept) 5 mg PO HS [facility] Stop: 09/23/16 20:59 Last Admin: 07/26/16 20:43 Dose: 5 mg Escitalopram Oxalate (Lexapro) 10 mg PO HS [facility] PRN Reason: Protocol Stop: 09/22/16 20:59 Last Admin: 07/26/16 20:43 Dose: 10 mg Sodium Chloride (Nacl 0.45%) 1,000 mls @ 100 mls/hr IV .Q10H [facility] Stop: 09/21/16 19:57 Last Admin: 07/27/16 04:28 Dose: 100 mls/hr Levothyroxine Sodium (Synthroid) 0.125 mg PO QDAC [facility] Stop: 09/24/16 07:29 Last Admin: 07/27/16 06:46 Dose: 0.125 mg Megestrol Acetate (Megace) 400 mg PO BID [facility] Stop: 09/22/16 08:59 Last Admin: 07/27/16 09:47 Dose: 400 mg Miscellaneous (Nebivolol Hcl [Bystolic]) 10 mg PO DAILY [facility] Stop: 09/22/16 08:59 Mupirocin (Bactroban Oint) 1 appl NS BID [facility] Stop: 07/30/16 09:01 Last Admin: 07/27/16 09:43 Dose: 1 appl Pantoprazole Sodium (Protonix) 40 mg PO DAILY [facility] Stop: 09/22/16 08:59 Last Admin: 07/27/16 09:43 Dose: 40 mg Promethazine HCl/Dextromethorphan (Phenergan Dm 6.25/15mg-5 Ml) 5 ml PO TID PRN PRN Reason: Cough Stop: 09/21/16 22:09 General: Alert, No acute distress HEENT: Atraumatic, Mucous membr. moist/pink Neck: Supple, +2 carotid pulse wo bruit Cardiovascular: Regular rate, Normal S1, Normal S2 Lungs: Clear to auscultation Abdomen: Bowel sounds, Soft Extremities: no Edema Neurological: Sensation intact Skin: no Rash Psych/Mental Status: Mood NL Assessment/Plan - Problem List Patient Problems: All Active Problems GENERALIZED WEAKNESS (Acute) dehydartion (Acute) gait disorder (Acute) hypothyroidm (Acute) osteoporosis (Acute) prerenal azotemiaa improving (Acute) - Assessment Assessment: CKD 4 dehydration/ FTT hypothyroid Ess HTN dyslipidemia anemia CD depression mod malnutrition - Plan Plan: Lab - Result Diagrams 07/26/16 04:37 07/26/16 04:37 Current Medications Acetaminophen (Tylenol) 650 mg PO Q4HR PRN PRN Reason: PAIN Stop: 09/21/16 22:09 Al Hydrox/Mg Hydrox/Simethicone (Maalox) 30 ml PO Q6H PRN PRN Reason: GERD Atorvastatin Calcium (Lipitor) 10 mg PO HS [facility] PRN Reason: Protocol Stop: 09/22/16 20:59 Last Admin: 07/25/16 21:19 Dose: 10 mg Ciprofloxacin (Cipro) 250 mg PO BID [facility] Stop: 09/23/16 08:59 Last Admin: 07/26/16 09:44 Dose: 250 mg Clonidine HCl (Catapres) 0.1 mg PO Q4HR PRN PRN Reason: SBP >160 Stop: 09/22/16 01:04 Last Admin: 07/26/16 04:52 Dose: 0.1 mg Clonidine HCl (Catapres) 0.2 mg PO BID [facility] Stop: 09/22/16 16:59 Last Admin: 07/26/16 09:43 Dose: 0.2 mg Docusate Sodium (Colace) 100 mg PO Q12H PRN PRN Reason: Constipation Stop: 09/21/16 22:09 Donepezil HCl (Aricept) 5 mg PO HS [facility] Stop: 09/23/16 20:59 Last Admin: 07/25/16 21:19 Dose: 5 mg Escitalopram Oxalate (Lexapro) 10 mg PO HS [facility] PRN Reason: Protocol Stop: 09/22/16 20:59 Last Admin: 07/25/16 21:19 Dose: 10 mg Sodium Chloride (Nacl 0.45%) 1,000 mls @ 100 mls/hr IV .Q10H [facility] Stop: 09/21/16 19:57 Last Admin: 07/26/16 03:31 Dose: 100 mls/hr Levothyroxine Sodium (Synthroid) 0.125 mg PO QDAC [facility] Stop: 09/24/16 07:29 Last Admin: 07/26/16 06:42 Dose: 0.125 mg Megestrol Acetate (Megace) 400 mg PO BID [facility] Stop: 09/22/16 08:59 Last Admin: 07/26/16 09:42 Dose: 400 mg Miscellaneous (Nebivolol Hcl [Bystolic]) 10 mg PO DAILY [facility] Stop: 09/22/16 08:59 Mupirocin (Bactroban Oint) 1 appl NS BID [facility] Stop: 07/30/16 09:01 Last Admin: 07/26/16 09:41 Dose: 1 appl Pantoprazole Sodium (Protonix) 40 mg PO DAILY [facility] Stop: 09/22/16 08:59 Last Admin: 07/26/16 09:44 Dose: 40 mg Promethazine HCl/Dextromethorphan (Phenergan Dm 6.25/15mg-5 Ml) 5 ml PO TID PRN PRN Reason: Cough Stop: 09/21/16 22:09 cr. stable @ 1.5, might be baseline continue ivf maintain abx encouraged po intake FENa 1.14% suggestive of intrinsic renal failure request pati count Nutritional Asmnt/Malnutr-PDOC - Dietary Evaluation Malnutrition Findings (Please click <Entered> for more info): Nutritional Asmnt/Malnutrition Start: 07/24/16 17: 36 Text: Status: Complete Freq: Document 07/24/16 17:36 GSUN (Rec: 07/24/16 17:51 GSUN [email or web address]) Nutritional Asmnt/Malnutrition Patient General Information Nutritional Screening High Risk Screening Diagnosis ER: infectious encephalopathy, acute on chronic CKD, dehydration, FTT Pertinent Medical Hx/Surgical Hx ER: HTN, dyslipidemia, throid disorder, dementia, CKD Subjective Information 80 year old female from home. Pt was asleep during visit, spoke to son at bedside. Son reported pt fell around 1 month ago, was admitted to rehab and ordered appetite stimulant and was eating well with possible weight gain, pt was then discharged home with caregiver who comes by. Son began noticing recent decline in PO intake, barely ate breakfast and lunch. Son stated pt usually drinks Ensure at home. Son denied difficulties chewing/ swallowing. Current Diet Order/ Nutrition Support Low sodium 2gm Pertinent Medications Maalox, Lipitor, Catapres, Colace, Synthroid, Megace, Protonix Pertinent Labs 07/23: BUN 40H, creatinine 1.8H 07/24: BUN 33H (improving), creaitnine 1.5H (improving), potassium 4.1 Nutritional Hx/Data Height 1.6 m Height (Calculated Centimeters) 160.0 Current Weight (lbs) 68.13 kg Weight (Calculated Kilograms) 68.1 Weight (Calculated Grams) 76463.6 Usual body Weight (lbs) 130 [place] Body Weight 120 Weight Status Overweight GI Symptoms Food Allergies No Cultural/Ethnic/Restorationism Belief Unknown. Usual diet at home [place]. Skin Integrity/Comment: Non-pitting edema bilateral legs and right arm Current %PO Poor (25-49%) Estimated Nutritional Goals Calories/Kcals/Kg UBW 130lb/59kg, 30-35kcal/kg Kcals Calculated 1770-2065kcal Protein g/kg: UBW 1.2-1.4g/kg Protein Calculated 71-83g Fluid: ml 1770-2065ml (1ml/kcal) Nutritional Problem 1. Problem Problem Increased protein and kcal needs related to Etiology hypermetabolic state, recent decline in PO intake aeb Signs/Symptoms: ER: sepsis and FFT, son report PO intake <25% Intervention/Recommendation Comments 1. Continue with low sodium diet. Current PO intake is not meeting nutritional needs. 2. Recommend Novasource Renal BID for additional kcal and protein to better meet nutritional needs. Expected Outcomes/Goals Expected Outcomes/Goals 1. PO intake to meet 100% of estimated nutritional needs.
[2016-07-27 15:14] LABS: MICROALBUMIN RANDOM RUINE 173.5 ug/mL (Not Estab.)
[2016-07-27] MEDS: Atorvastatin Calcium 10 MG TAB PO SCH (21:25)
[2016-07-28 06:23] LABS: % BASOPHILS 0.3 % (0.0-2.0); % EOSINOPHILS 0.9 % (0.0-5.0); % LYMPHOCYTES 20.7 % (20.0-50.0); % MONOCYTES 7.1 % (2.0-10.0); HEMOGLOBIN 10.4 gm/dL (11.7-16.1); MEAN CELL VOLUME 93.8 fl (81-100); MEAN CORPUSCULAR HEMOGLOBIN 31.5 pg (27.0-31.0); MEAN CORPUSCULAR HGB CONC 33.6 pg (28.0-36.0); NEUTROPHILE ABSOLUTE 4.1 Th/cmm (1.8-8.0); PLATELET COUNT 200 Th/cmm (150-400); RED CELL DISTRIBUTION WIDTH 13.5 % (11.5-20.0); WHITE BLOOD COUNT 5.8 Th/cmm (4.8-10.8)
[2016-07-28] MEDS: Levothyroxine 0.125 Mg Tab PO SCH (06:31)
[2016-07-28 08:14] LABS: ANION GAP 10.4 (7.0-16.0); BUN - UREA NITROGEN 33 mg/dL (7-25); BUN/CREATININE RATIO 23.6; CALCIUM SERUM 8.4 mg/dL (8.6-10.3); CARBON DIOXIDE 20.4 mEq/L (21.0-31.0); CHLORIDE 110 mEq/L (98-107); CREATININE - SERUM 1.4 mg/dL (0.6-1.2); GLUCOSE 104 mg/dL (70-105); POTASSIUM SERUM 3.8 mEq/L (3.5-5.1); SODIUM SERUM 137 mEq/L (136-145)
[2016-07-28] MEDS: Multivitamin w/ Minerals Tab PO SCH (08:52)
[2016-07-28] MEDS: Pantoprazole 40 mg EC Tab PO SCH (08:52)
--- NOTE | 2016-07-28 09:05 | General Progress Note ---
Subjective - Review of Systems Subjective: patient is awake has high tsh Objective - Results Result Diagrams: 07/28/16 05:23 07/28/16 05:23 Recent Labs: Laboratory Last Values WBC 5.8 Th/cmm (4.8-10.8) 07/28/16 05:23 RBC 3.30 Mil/cmm (3.80-5.20) L 07/28/16 05:23 Hgb 10.4 gm/dL (11.7-16.1) L 07/28/16 05:23 Hct 31.0 % (35.0-45.0) L 07/28/16 05:23 MCV 93.8 fl (81-100) 07/28/16 05:23 MCH 31.5 pg (27.0-31.0) H 07/28/16 05:23 MCHC Differential 33.6 pg (28.0-36.0) 07/28/16 05:23 RDW 13.5 % (11.5-20.0) 07/28/16 05:23 Plt Count 200 Th/cmm (150-400) 07/28/16 05:23 MPV 8.0 fl 07/28/16 05:23 Neutrophils % 71.0 % (40.0-80.0) 07/28/16 05:23 Lymphocytes % 20.7 % (20.0-50.0) 07/28/16 05:23 Monocytes % 7.1 % (2.0-10.0) 07/28/16 05:23 Eosinophils % 0.9 % (0.0-5.0) 07/28/16 05:23 Basophils % 0.3 % (0.0-2.0) 07/28/16 05:23 Eos Smear Source URINE 07/25/16 23:40 Eos Smear Total Cells NONE SEEN (NONE SEEN) 07/25/16 23:40 PT 11.0 SECONDS (9.5-11.5) 07/23/16 17:15 INR 1.06 (0.5-1.4) 07/23/16 17:15 PTT (Actin FS) 25.7 SECONDS (26.0-38.0) L 07/23/16 17:15 Sodium 137 mEq/L (136-145) 07/28/16 05:23 Potassium 3.8 mEq/L (3.5-5.1) 07/28/16 05:23 Chloride 110 mEq/L (98-107) H 07/28/16 05:23 Carbon Dioxide 20.4 mEq/L (21.0-31.0) L 07/28/16 05:23 Anion Gap 10.4 (7.0-16.0) 07/28/16 05:23 BUN 33 mg/dL (7-25) H 07/28/16 05:23 Creatinine 1.4 mg/dL (0.6-1.2) H 07/28/16 05:23 Est GFR ( Amer) TNP 07/28/16 05:23 Est GFR (Non-Af Amer) TNP 07/28/16 05:23 BUN/Creatinine Ratio 23.6 07/28/16 05:23 Glucose 104 mg/dL (70-105) 07/28/16 05:23 Whole Bld Lactic Acid 1.04 mmol/L (0.60-1.99) 07/23/16 17:15 Uric Acid 4.8 mg/dL (2.3-6.6) 07/26/16 04:37 Calcium 8.4 mg/dL (8.6-10.3) L 07/28/16 05:23 Phosphorus 3.1 mg/dL (2.5-5.0) 07/26/16 04:37 Magnesium 2.0 mg/dL (1.9-2.7) 07/26/16 04:37 Total Bilirubin 0.4 mg/dL (0.3-1.0) 07/24/16 06:05 AST 12 U/L (13-39) L 07/24/16 06:05 ALT 13 U/L (7-52) 07/24/16 06:05 Alkaline Phosphatase 45 U/L (34-104) 07/24/16 06:05 Ammonia 25 umol/L (16-53) 07/26/16 07:10 Creatine Kinase 18 U/L (30-223) L 07/27/16 04:48 C-Reactive Protein mg/dL (0.0-0.9) 07/27/16 04:48 Total Protein 5.5 gm/dL (6.0-8.3) L 07/24/16 06:05 Albumin 3.0 gm/dL (3.7-5.3) L 07/24/16 06:05 Globulin 2.5 gm/dL 07/24/16 06:05 Albumin/Globulin Ratio 1.2 (1.0-1.8) 07/24/16 06:05 Triglycerides 96 mg/dL (<150) 07/26/16 04:37 Cholesterol 121 mg/dL (<200) 07/26/16 04:37 LDL Cholesterol Direct 78 mg/dL (75-193) 07/26/16 04:37 HDL Cholesterol 34 mg/dL (23-92) 07/26/16 04:37 TSH 17.55 uIU/ml (0.34-5.60) H 07/25/16 05:50 Urine Source [place] 07/23/16 17:30 Urine Color YELLOW 07/23/16 17:30 Urine Clarity CLOUDY (CLEAR) H 07/23/16 17:30 Urine pH 5.5 07/23/16 17:30 Ur Specific [place] 1.020 (1.005-1.030) 07/23/16 17:30 Urine Protein 100 mg/dL (NEGATIVE) H 07/23/16 17:30 Urine Glucose (UA) NEGATIVE mg/dL (NEGATIVE) 07/23/16 17:30 Urine Ketones NEGATIVE mg/dL (NEGATIVE) 07/23/16 17:30 Urine Blood MODERATE (NEGATIVE) H 07/23/16 17:30 Urine Nitrate NEGATIVE (NEGATIVE) 07/23/16 17:30 Urine Bilirubin NEGATIVE (NEGATIVE) 07/23/16 17:30 Urine Urobilinogen 0.2 E.U./dL (0.2 - 1.0) 07/23/16 17:30 Ur Leukocyte Esterase MODERATE (NEGATIVE) H 07/23/16 17:30 Urine RBC 2-5 /hpf (0-5) 07/23/16 17:30 Urine WBC 50-100 /hpf (0-5) H 07/23/16 17:30 Ur Epithelial Cells FEW /lpf (FEW) 07/23/16 17:30 Amorphous Sediment FEW URATES (NONE SEEN) 07/23/16 17:30 Urine Bacteria MANY /hpf (NONE SEEN) 07/23/16 17:30 Ur Random Sodium 60 mmol/L 07/25/16 23:40 Urine Creatinine 44.4 mg/dl (Not Estab.) 07/25/16 23:40 Urine Microalbumin 173.5 ug/mL (Not Estab.) 07/25/16 23:40 Microalb/Creat Ratio 390.8 mg/g creat (0.0-30.0) H 07/25/16 23:40 - Physical Exam Vitals and I&O: Vital Signs Temp 98.4 F 07/28/16 04:00 Pulse 83 07/28/16 08:52 Resp 20 07/28/16 04:00 BP 159/84 07/28/16 04:00 Pulse Ox 97 07/28/16 04:00 Intake & Output 07/27/16 07/28/16 07/28/16 17:59 06:59 18:59 Intake Total Balance Intake: Oral Other: # Voids Active Medications: Current Medications Acetaminophen (Tylenol) 650 mg PO Q4HR PRN PRN Reason: PAIN Stop: 09/21/16 22:09 Al Hydrox/Mg Hydrox/Simethicone (Maalox) 30 ml PO Q6H PRN PRN Reason: GERD Atorvastatin Calcium (Lipitor) 10 mg PO HS [facility] PRN Reason: Protocol Stop: 09/22/16 20:59 Last Admin: 07/27/16 21:25 Dose: 10 mg Ciprofloxacin (Cipro) 250 mg PO BID [facility] Stop: 09/23/16 08:59 Last Admin: 07/28/16 08:52 Dose: 250 mg Clonidine HCl (Catapres) 0.1 mg PO Q4HR PRN PRN Reason: SBP >160 Stop: 09/22/16 01:04 Last Admin: 07/27/16 16:25 Dose: 0.1 mg Clonidine HCl (Catapres) 0.2 mg PO BID [facility] Stop: 09/22/16 16:59 Last Admin: 07/28/16 08:52 Dose: 0.2 mg Docusate Sodium (Colace) 100 mg PO Q12H PRN PRN Reason: Constipation Stop: 09/21/16 22:09 Donepezil HCl (Aricept) 5 mg PO HS [facility] Stop: 09/23/16 20:59 Last Admin: 07/27/16 21:26 Dose: 5 mg Escitalopram Oxalate (Lexapro) 10 mg PO HS [facility] PRN Reason: Protocol Stop: 09/22/16 20:59 Last Admin: 07/27/16 21:26 Dose: 10 mg Sodium Chloride (Nacl 0.45%) 1,000 mls @ 60 mls/hr IV .[id number] [facility] Stop: 09/21/16 19:57 Last Admin: 07/27/16 16:25 Dose: 60 mls/hr Levothyroxine Sodium (Synthroid) 0.125 mg PO QDAC [facility] Stop: 09/24/16 07:29 Last Admin: 07/28/16 06:31 Dose: 0.125 mg Megestrol Acetate (Megace) 400 mg PO BID [facility] Stop: 09/22/16 08:59 Last Admin: 07/28/16 08:52 Dose: 400 mg Miscellaneous (Nebivolol Hcl [Bystolic]) 10 mg PO DAILY [facility] Stop: 09/22/16 08:59 Mupirocin (Bactroban Oint) 1 appl NS BID [facility] Stop: 07/30/16 09:01 Last Admin: 07/28/16 08:51 Dose: 1 appl Pantoprazole Sodium (Protonix) 40 mg PO DAILY [facility] Stop: 09/22/16 08:59 Last Admin: 07/28/16 08:52 Dose: 40 mg Promethazine HCl/Dextromethorphan (Phenergan Dm 6.25/15mg-5 Ml) 5 ml PO TID PRN PRN Reason: Cough Stop: 09/21/16 22:09 Assessment/Plan - Problem List Patient Problems: All Active Problems GENERALIZED WEAKNESS (Acute) dehydartion (Acute) gait disorder (Acute) hypothyroidm (Acute) osteoporosis (Acute) prerenal azotemiaa improving (Acute) - Assessment Assessment: confusion general weakness UTI HTN Hyperlipidemia thyroids disorder dementia - Plan Plan: monitor vitals/diet labs iv antibiotic fall precaution Nutritional Asmnt/Malnutr-PDOC - Dietary Evaluation Malnutrition Findings (Please click <Entered> for more info): Nutritional Asmnt/Malnutrition Start: 07/24/16 17: 36 Text: Status: Complete Freq: Document 07/24/16 17:36 GSUN (Rec: 07/24/16 17:51 GSUN [email or web address]) Nutritional Asmnt/Malnutrition Patient General Information Nutritional Screening High Risk Screening Diagnosis ER: infectious encephalopathy, acute on chronic CKD, dehydration, FTT Pertinent Medical Hx/Surgical Hx ER: HTN, dyslipidemia, throid disorder, dementia, CKD Subjective Information 80 year old female from home. Pt was asleep during visit, spoke to son at bedside. Son reported pt fell around 1 month ago, was admitted to rehab and ordered appetite stimulant and was eating well with possible weight gain, pt was then discharged home with caregiver who comes by. Son began noticing recent decline in PO intake, barely ate breakfast and lunch. Son stated pt usually drinks Ensure at home. Son denied difficulties chewing/ swallowing. Current Diet Order/ Nutrition Support Low sodium 2gm Pertinent Medications Maalox, Lipitor, Catapres, Colace, Synthroid, Megace, Protonix Pertinent Labs 07/23: BUN 40H, creatinine 1.8H 07/24: BUN 33H (improving), creaitnine 1.5H (improving), potassium 4.1 Nutritional Hx/Data Height 1.6 m Height (Calculated Centimeters) 160.0 Current Weight (lbs) 68.13 kg Weight (Calculated Kilograms) 68.1 Weight (Calculated Grams) 02148.6 Usual body Weight (lbs) 130 Dwarf Body Weight 120 Weight Status Overweight GI Symptoms Food Allergies No Cultural/Ethnic/Scientology Belief Unknown. Usual diet at home [place]. Skin Integrity/Comment: Non-pitting edema bilateral legs and right arm Current %PO Poor (25-49%) Estimated Nutritional Goals Calories/Kcals/Kg UBW 130lb/59kg, 30-35kcal/kg Kcals Calculated 1770-2065kcal Protein g/kg: UBW 1.2-1.4g/kg Protein Calculated 71-83g Fluid: ml 1770-2065ml (1ml/kcal) Nutritional Problem 1. Problem Problem Increased protein and kcal needs related to Etiology hypermetabolic state, recent decline in PO intake aeb Signs/Symptoms: ER: sepsis and FFT, son report PO intake <25% Intervention/Recommendation Comments 1. Continue with low sodium diet. Current PO intake is not meeting nutritional needs. 2. Recommend Novasource Renal BID for additional kcal and protein to better meet nutritional needs. Expected Outcomes/Goals Expected Outcomes/Goals 1. PO intake to meet 100% of estimated nutritional needs.
--- NOTE | 2016-07-28 11:36 | Diagnostic Imaging Report ---
Bilateral carotid Doppler ultrasound exam HISTORY: Stroke, CVA, transient ischemic attack Sonographic sector images were obtained through the carotid bifurcation regions bilaterally. Associated Doppler data was obtained. The exam of the right side demonstrates generalized intimal thickening and mild atherosclerotic plaque within the bifurcation area. No significant narrowing or stenosis. Antegrade vertebral artery flow. Velocities and flow ratios are normal (ICA/CCA equals 0.67). The exam the left side also demonstrates generalized intimal thickening. No significant focal plaque is seen. Antegrade vertebral artery flow. Velocities and flow ratios are normal (ICA/CCA equals 1.03) IMPRESSION: 1. Mild bilateral atherosclerotic changes that do not appear to be hemodynamically significant.
--- NOTE | 2016-07-28 11:40 | Diagnostic Imaging Report ---
CT scan of the brain without intravenous contrast HISTORY: Stroke, CVA Total DLP equals 564 CTDI equals 33.2 Axial sections were obtained from the base of the skull to the vertex. There is marked enlargement of the ventricular system along with marked enlargement of cerebral sulci and subarachnoid cisterns reflecting severe generalized atrophy. There is extensive hypodensity throughout the supratentorial periventricular and white matter regions. The findings may be associated with chronic small vessel ischemic disease. No acute intracerebral hemorrhage. Again, no mass effect or shift of midline structures. No extra-axial masses or abnormal fluid collections. Mucosal thickening noted along the lower posterior wall of the right maxillary sinus. IMPRESSION: 1. No definite acute abnormalities 2. Severe generalized cerebral atrophy 3. Extensive supratentorial white matter changes. The findings may be associated with chronic small vessel ischemic disease.
--- NOTE | 2016-07-28 13:16 | General Progress Note ---
Subjective - Review of Systems Service Date: 07/28/16 Subjective: sleeping, comfortable, arousable Objective - Results Result Diagrams: 07/28/16 05:23 07/28/16 05:23 Recent Labs: Laboratory Last Values WBC 5.8 Th/cmm (4.8-10.8) 07/28/16 05:23 RBC 3.30 Mil/cmm (3.80-5.20) L 07/28/16 05:23 Hgb 10.4 gm/dL (11.7-16.1) L 07/28/16 05:23 Hct 31.0 % (35.0-45.0) L 07/28/16 05:23 MCV 93.8 fl (81-100) 07/28/16 05:23 MCH 31.5 pg (27.0-31.0) H 07/28/16 05:23 MCHC Differential 33.6 pg (28.0-36.0) 07/28/16 05:23 RDW 13.5 % (11.5-20.0) 07/28/16 05:23 Plt Count 200 Th/cmm (150-400) 07/28/16 05:23 MPV 8.0 fl 07/28/16 05:23 Neutrophils % 71.0 % (40.0-80.0) 07/28/16 05:23 Lymphocytes % 20.7 % (20.0-50.0) 07/28/16 05:23 Monocytes % 7.1 % (2.0-10.0) 07/28/16 05:23 Eosinophils % 0.9 % (0.0-5.0) 07/28/16 05:23 Basophils % 0.3 % (0.0-2.0) 07/28/16 05:23 Eos Smear Source URINE 07/25/16 23:40 Eos Smear Total Cells NONE SEEN (NONE SEEN) 07/25/16 23:40 PT 11.0 SECONDS (9.5-11.5) 07/23/16 17:15 INR 1.06 (0.5-1.4) 07/23/16 17:15 PTT (Actin FS) 25.7 SECONDS (26.0-38.0) L 07/23/16 17:15 Sodium 137 mEq/L (136-145) 07/28/16 05:23 Potassium 3.8 mEq/L (3.5-5.1) 07/28/16 05:23 Chloride 110 mEq/L (98-107) H 07/28/16 05:23 Carbon Dioxide 20.4 mEq/L (21.0-31.0) L 07/28/16 05:23 Anion Gap 10.4 (7.0-16.0) 07/28/16 05:23 BUN 33 mg/dL (7-25) H 07/28/16 05:23 Creatinine 1.4 mg/dL (0.6-1.2) H 07/28/16 05:23 Est GFR ( Amer) TNP 07/28/16 05:23 Est GFR (Non-Af Amer) TNP 07/28/16 05:23 BUN/Creatinine Ratio 23.6 07/28/16 05:23 Glucose 104 mg/dL (70-105) 07/28/16 05:23 Whole Bld Lactic Acid 1.04 mmol/L (0.60-1.99) 07/23/16 17:15 Uric Acid 4.8 mg/dL (2.3-6.6) 07/26/16 04:37 Calcium 8.4 mg/dL (8.6-10.3) L 07/28/16 05:23 Phosphorus 3.1 mg/dL (2.5-5.0) 07/26/16 04:37 Magnesium 2.0 mg/dL (1.9-2.7) 07/26/16 04:37 Total Bilirubin 0.4 mg/dL (0.3-1.0) 07/24/16 06:05 AST 12 U/L (13-39) L 07/24/16 06:05 ALT 13 U/L (7-52) 07/24/16 06:05 Alkaline Phosphatase 45 U/L (34-104) 07/24/16 06:05 Ammonia 25 umol/L (16-53) 07/26/16 07:10 Creatine Kinase 18 U/L (30-223) L 07/27/16 04:48 C-Reactive Protein mg/dL (0.0-0.9) 07/27/16 04:48 Total Protein 5.5 gm/dL (6.0-8.3) L 07/24/16 06:05 Albumin 3.0 gm/dL (3.7-5.3) L 07/24/16 06:05 Globulin 2.5 gm/dL 07/24/16 06:05 Albumin/Globulin Ratio 1.2 (1.0-1.8) 07/24/16 06:05 Triglycerides 96 mg/dL (<150) 07/26/16 04:37 Cholesterol 121 mg/dL (<200) 07/26/16 04:37 LDL Cholesterol Direct 78 mg/dL (75-193) 07/26/16 04:37 HDL Cholesterol 34 mg/dL (23-92) 07/26/16 04:37 TSH 17.55 uIU/ml (0.34-5.60) H 07/25/16 05:50 Urine Source [place] 07/23/16 17:30 Urine Color YELLOW 07/23/16 17:30 Urine Clarity CLOUDY (CLEAR) H 07/23/16 17:30 Urine pH 5.5 07/23/16 17:30 Ur Specific [place] 1.020 (1.005-1.030) 07/23/16 17:30 Urine Protein 100 mg/dL (NEGATIVE) H 07/23/16 17:30 Urine Glucose (UA) NEGATIVE mg/dL (NEGATIVE) 07/23/16 17:30 Urine Ketones NEGATIVE mg/dL (NEGATIVE) 07/23/16 17:30 Urine Blood MODERATE (NEGATIVE) H 07/23/16 17:30 Urine Nitrate NEGATIVE (NEGATIVE) 07/23/16 17:30 Urine Bilirubin NEGATIVE (NEGATIVE) 07/23/16 17:30 Urine Urobilinogen 0.2 E.U./dL (0.2 - 1.0) 07/23/16 17:30 Ur Leukocyte Esterase MODERATE (NEGATIVE) H 07/23/16 17:30 Urine RBC 2-5 /hpf (0-5) 07/23/16 17:30 Urine WBC 50-100 /hpf (0-5) H 07/23/16 17:30 Ur Epithelial Cells FEW /lpf (FEW) 07/23/16 17:30 Amorphous Sediment FEW URATES (NONE SEEN) 07/23/16 17:30 Urine Bacteria MANY /hpf (NONE SEEN) 07/23/16 17:30 Ur Random Sodium 60 mmol/L 07/25/16 23:40 Urine Creatinine 44.4 mg/dl (Not Estab.) 07/25/16 23:40 Urine Microalbumin 173.5 ug/mL (Not Estab.) 07/25/16 23:40 Microalb/Creat Ratio 390.8 mg/g creat (0.0-30.0) H 07/25/16 23:40 - Physical Exam Vitals and I&O: Vital Signs Temp 97.7 F 07/28/16 13:00 Pulse 71 07/28/16 13:00 Resp 16 07/28/16 13:00 BP 125/76 07/28/16 13:00 Pulse Ox 99 07/28/16 13:00 Intake & Output 07/27/16 07/28/16 07/28/16 17:59 06:59 18:59 Intake Total Balance Intake: Oral Other: # Voids Active Medications: Current Medications Acetaminophen (Tylenol) 650 mg PO Q4HR PRN PRN Reason: PAIN Stop: 09/21/16 22:09 Al Hydrox/Mg Hydrox/Simethicone (Maalox) 30 ml PO Q6H PRN PRN Reason: GERD Atorvastatin Calcium (Lipitor) 10 mg PO HS [facility] PRN Reason: Protocol Stop: 09/22/16 20:59 Last Admin: 07/27/16 21:25 Dose: 10 mg Ciprofloxacin (Cipro) 250 mg PO BID [facility] Stop: 09/23/16 08:59 Last Admin: 07/28/16 08:52 Dose: 250 mg Clonidine HCl (Catapres) 0.1 mg PO Q4HR PRN PRN Reason: SBP >160 Stop: 09/22/16 01:04 Last Admin: 07/27/16 16:25 Dose: 0.1 mg Clonidine HCl (Catapres) 0.2 mg PO BID [facility] Stop: 09/22/16 16:59 Last Admin: 07/28/16 08:52 Dose: 0.2 mg Docusate Sodium (Colace) 100 mg PO Q12H PRN PRN Reason: Constipation Stop: 09/21/16 22:09 Donepezil HCl (Aricept) 5 mg PO HS [facility] Stop: 09/23/16 20:59 Last Admin: 07/27/16 21:26 Dose: 5 mg Escitalopram Oxalate (Lexapro) 10 mg PO HS [facility] PRN Reason: Protocol Stop: 09/22/16 20:59 Last Admin: 07/27/16 21:26 Dose: 10 mg Sodium Chloride (Nacl 0.45%) 1,000 mls @ 60 mls/hr IV .[id number] [facility] Stop: 09/21/16 19:57 Last Admin: 07/27/16 16:25 Dose: 60 mls/hr Levothyroxine Sodium (Synthroid) 0.125 mg PO QDAC [facility] Stop: 09/24/16 07:29 Last Admin: 07/28/16 06:31 Dose: 0.125 mg Megestrol Acetate (Megace) 400 mg PO BID [facility] Stop: 09/22/16 08:59 Last Admin: 07/28/16 08:52 Dose: 400 mg Miscellaneous (Nebivolol Hcl [Bystolic]) 10 mg PO DAILY [facility] Stop: 09/22/16 08:59 Mupirocin (Bactroban Oint) 1 appl NS BID [facility] Stop: 07/30/16 09:01 Last Admin: 07/28/16 08:51 Dose: 1 appl Pantoprazole Sodium (Protonix) 40 mg PO DAILY [facility] Stop: 09/22/16 08:59 Last Admin: 07/28/16 08:52 Dose: 40 mg Promethazine HCl/Dextromethorphan (Phenergan Dm 6.25/15mg-5 Ml) 5 ml PO TID PRN PRN Reason: Cough Stop: 09/21/16 22:09 General: No acute distress HEENT: Atraumatic, Mucous membr. moist/pink Neck: Supple, +2 carotid pulse wo bruit Cardiovascular: Regular rate, Normal S1, Normal S2 Lungs: Clear to auscultation Abdomen: Bowel sounds, Soft Extremities: no Edema Neurological: Sensation intact Skin: no Rash Psych/Mental Status: Mood NL Assessment/Plan - Problem List Patient Problems: All Active Problems GENERALIZED WEAKNESS (Acute) dehydartion (Acute) gait disorder (Acute) hypothyroidm (Acute) osteoporosis (Acute) prerenal azotemiaa improving (Acute) - Assessment Assessment: CKD 4 dehydration/ FTT hypothyroid Ess HTN dyslipidemia anemia CD depression mod malnutrition - Plan Plan: Lab - Result Diagrams 07/26/16 04:37 Lab - Result Diagrams 07/28/16 05:23 07/28/16 05:23 07/26/16 04:37 Current Medications Acetaminophen (Tylenol) 650 mg PO Q4HR PRN PRN Reason: PAIN Stop: 09/21/16 22:09 Al Hydrox/Mg Hydrox/Simethicone (Maalox) 30 ml PO Q6H PRN PRN Reason: GERD Atorvastatin Calcium (Lipitor) 10 mg PO HS [facility] PRN Reason: Protocol Stop: 09/22/16 20:59 Last Admin: 07/25/16 21:19 Dose: 10 mg Ciprofloxacin (Cipro) 250 mg PO BID [facility] Stop: 09/23/16 08:59 Last Admin: 07/26/16 09:44 Dose: 250 mg Clonidine HCl (Catapres) 0.1 mg PO Q4HR PRN PRN Reason: SBP >160 Stop: 09/22/16 01:04 Last Admin: 07/26/16 04:52 Dose: 0.1 mg Clonidine HCl (Catapres) 0.2 mg PO BID [facility] Stop: 09/22/16 16:59 Last Admin: 07/26/16 09:43 Dose: 0.2 mg Docusate Sodium (Colace) 100 mg PO Q12H PRN PRN Reason: Constipation Stop: 09/21/16 22:09 Donepezil HCl (Aricept) 5 mg PO HS [facility] Stop: 09/23/16 20:59 Last Admin: 07/25/16 21:19 Dose: 5 mg Escitalopram Oxalate (Lexapro) 10 mg PO HS [facility] PRN Reason: Protocol Stop: 09/22/16 20:59 Last Admin: 07/25/16 21:19 Dose: 10 mg Sodium Chloride (Nacl 0.45%) 1,000 mls @ 100 mls/hr IV .Q10H [facility] Stop: 09/21/16 19:57 Last Admin: 07/26/16 03:31 Dose: 100 mls/hr Levothyroxine Sodium (Synthroid) 0.125 mg PO QDAC [facility] Stop: 09/24/16 07:29 Last Admin: 07/26/16 06:42 Dose: 0.125 mg Megestrol Acetate (Megace) 400 mg PO BID [facility] Stop: 09/22/16 08:59 Last Admin: 07/26/16 09:42 Dose: 400 mg Miscellaneous (Nebivolol Hcl [Bystolic]) 10 mg PO DAILY [facility] Stop: 09/22/16 08:59 Mupirocin (Bactroban Oint) 1 appl NS BID [facility] Stop: 07/30/16 09:01 Last Admin: 07/26/16 09:41 Dose: 1 appl Pantoprazole Sodium (Protonix) 40 mg PO DAILY [facility] Stop: 09/22/16 08:59 Last Admin: 07/26/16 09:44 Dose: 40 mg Promethazine HCl/Dextromethorphan (Phenergan Dm 6.25/15mg-5 Ml) 5 ml PO TID PRN PRN Reason: Cough Stop: 09/21/16 22:09 cr. stable @ 1.4, might be baseline continue ivf maintain abx encouraged po intake FENa 1.14% suggestive of intrinsic renal failure request pati count per staff eating 50-60% Nutritional Asmnt/Malnutr-PDOC - Dietary Evaluation Malnutrition Findings (Please click <Entered> for more info): Nutritional Asmnt/Malnutrition Start: 07/24/16 17: 36 Text: Status: Complete Freq: Document 07/24/16 17:36 GSUN (Rec: 07/24/16 17:51 GSUN [email or web address]) Nutritional Asmnt/Malnutrition Patient General Information Nutritional Screening High Risk Screening Diagnosis ER: infectious encephalopathy, acute on chronic CKD, dehydration, FTT Pertinent Medical Hx/Surgical Hx ER: HTN, dyslipidemia, throid disorder, dementia, CKD Subjective Information 80 year old female from home. Pt was asleep during visit, spoke to son at bedside. Son reported pt fell around 1 month ago, was admitted to rehab and ordered appetite stimulant and was eating well with possible weight gain, pt was then discharged home with caregiver who comes by. Son began noticing recent decline in PO intake, barely ate breakfast and lunch. Son stated pt usually drinks Ensure at home. Son denied difficulties chewing/ swallowing. Current Diet Order/ Nutrition Support Low sodium 2gm Pertinent Medications Maalox, Lipitor, Catapres, Colace, Synthroid, Megace, Protonix Pertinent Labs 07/23: BUN 40H, creatinine 1.8H 07/24: BUN 33H (improving), creaitnine 1.5H (improving), potassium 4.1 Nutritional Hx/Data Height 1.6 m Height (Calculated Centimeters) 160.0 Current Weight (lbs) 68.13 kg Weight (Calculated Kilograms) 68.1 Weight (Calculated Grams) 03864.6 Usual body Weight (lbs) 130 Ama Body Weight 120 Weight Status Overweight GI Symptoms Food Allergies No Cultural/Ethnic/Quaker Belief Unknown. Usual diet at home [place]. Skin Integrity/Comment: Non-pitting edema bilateral legs and right arm Current %PO Poor (25-49%) Estimated Nutritional Goals Calories/Kcals/Kg UBW 130lb/59kg, 30-35kcal/kg Kcals Calculated 1770-2065kcal Protein g/kg: UBW 1.2-1.4g/kg Protein Calculated 71-83g Fluid: ml 1770-2065ml (1ml/kcal) Nutritional Problem 1. Problem Problem Increased protein and kcal needs related to Etiology hypermetabolic state, recent decline in PO intake aeb Signs/Symptoms: ER: sepsis and FFT, son report PO intake <25% Intervention/Recommendation Comments 1. Continue with low sodium diet. Current PO intake is not meeting nutritional needs. 2. Recommend Novasource Renal BID for additional kcal and protein to better meet nutritional needs. Expected Outcomes/Goals Expected Outcomes/Goals 1. PO intake to meet 100% of estimated nutritional needs.
[2016-07-28] MEDS: Sodium Chloride 0.45% 1,000 ML IV SCH (14:48)
--- NOTE | 2016-07-28 19:01 | Infectious Disease Prog Note ---
Infectious Disease Subjective - Review of Systems Service Date: 07/28/16 Subjective: There is no new change. There is no fever. Infectious Disease Objective - Results Result Diagrams: 07/28/16 05:23 07/28/16 05:23 Recent Labs: Laboratory Last Values WBC 5.8 Th/cmm (4.8-10.8) 07/28/16 05:23 RBC 3.30 Mil/cmm (3.80-5.20) L 07/28/16 05:23 Hgb 10.4 gm/dL (11.7-16.1) L 07/28/16 05:23 Hct 31.0 % (35.0-45.0) L 07/28/16 05:23 MCV 93.8 fl (81-100) 07/28/16 05:23 MCH 31.5 pg (27.0-31.0) H 07/28/16 05:23 MCHC Differential 33.6 pg (28.0-36.0) 07/28/16 05:23 RDW 13.5 % (11.5-20.0) 07/28/16 05:23 Plt Count 200 Th/cmm (150-400) 07/28/16 05:23 MPV 8.0 fl 07/28/16 05:23 Neutrophils % 71.0 % (40.0-80.0) 07/28/16 05:23 Lymphocytes % 20.7 % (20.0-50.0) 07/28/16 05:23 Monocytes % 7.1 % (2.0-10.0) 07/28/16 05:23 Eosinophils % 0.9 % (0.0-5.0) 07/28/16 05:23 Basophils % 0.3 % (0.0-2.0) 07/28/16 05:23 Eos Smear Source URINE 07/25/16 23:40 Eos Smear Total Cells NONE SEEN (NONE SEEN) 07/25/16 23:40 PT 11.0 SECONDS (9.5-11.5) 07/23/16 17:15 INR 1.06 (0.5-1.4) 07/23/16 17:15 PTT (Actin FS) 25.7 SECONDS (26.0-38.0) L 07/23/16 17:15 Sodium 137 mEq/L (136-145) 07/28/16 05:23 Potassium 3.8 mEq/L (3.5-5.1) 07/28/16 05:23 Chloride 110 mEq/L (98-107) H 07/28/16 05:23 Carbon Dioxide 20.4 mEq/L (21.0-31.0) L 07/28/16 05:23 Anion Gap 10.4 (7.0-16.0) 07/28/16 05:23 BUN 33 mg/dL (7-25) H 07/28/16 05:23 Creatinine 1.4 mg/dL (0.6-1.2) H 07/28/16 05:23 Est GFR ( Amer) TNP 07/28/16 05:23 Est GFR (Non-Af Amer) TNP 07/28/16 05:23 BUN/Creatinine Ratio 23.6 07/28/16 05:23 Glucose 104 mg/dL (70-105) 07/28/16 05:23 Whole Bld Lactic Acid 1.04 mmol/L (0.60-1.99) 07/23/16 17:15 Uric Acid 4.8 mg/dL (2.3-6.6) 07/26/16 04:37 Calcium 8.4 mg/dL (8.6-10.3) L 07/28/16 05:23 Phosphorus 3.1 mg/dL (2.5-5.0) 07/26/16 04:37 Magnesium 2.0 mg/dL (1.9-2.7) 07/26/16 04:37 Total Bilirubin 0.4 mg/dL (0.3-1.0) 07/24/16 06:05 AST 12 U/L (13-39) L 07/24/16 06:05 ALT 13 U/L (7-52) 07/24/16 06:05 Alkaline Phosphatase 45 U/L (34-104) 07/24/16 06:05 Ammonia 25 umol/L (16-53) 07/26/16 07:10 Creatine Kinase 18 U/L (30-223) L 07/27/16 04:48 C-Reactive Protein mg/dL (0.0-0.9) 07/27/16 04:48 Total Protein 5.5 gm/dL (6.0-8.3) L 07/24/16 06:05 Albumin 3.0 gm/dL (3.7-5.3) L 07/24/16 06:05 Globulin 2.5 gm/dL 07/24/16 06:05 Albumin/Globulin Ratio 1.2 (1.0-1.8) 07/24/16 06:05 Triglycerides 96 mg/dL (<150) 07/26/16 04:37 Cholesterol 121 mg/dL (<200) 07/26/16 04:37 LDL Cholesterol Direct 78 mg/dL (75-193) 07/26/16 04:37 HDL Cholesterol 34 mg/dL (23-92) 07/26/16 04:37 TSH 17.55 uIU/ml (0.34-5.60) H 07/25/16 05:50 Urine Source [place] 07/23/16 17:30 Urine Color YELLOW 07/23/16 17:30 Urine Clarity CLOUDY (CLEAR) H 07/23/16 17:30 Urine pH 5.5 07/23/16 17:30 Ur Specific [place] 1.020 (1.005-1.030) 07/23/16 17:30 Urine Protein 100 mg/dL (NEGATIVE) H 07/23/16 17:30 Urine Glucose (UA) NEGATIVE mg/dL (NEGATIVE) 07/23/16 17:30 Urine Ketones NEGATIVE mg/dL (NEGATIVE) 07/23/16 17:30 Urine Blood MODERATE (NEGATIVE) H 07/23/16 17:30 Urine Nitrate NEGATIVE (NEGATIVE) 07/23/16 17:30 Urine Bilirubin NEGATIVE (NEGATIVE) 07/23/16 17:30 Urine Urobilinogen 0.2 E.U./dL (0.2 - 1.0) 07/23/16 17:30 Ur Leukocyte Esterase MODERATE (NEGATIVE) H 07/23/16 17:30 Urine RBC 2-5 /hpf (0-5) 07/23/16 17:30 Urine WBC 50-100 /hpf (0-5) H 07/23/16 17:30 Ur Epithelial Cells FEW /lpf (FEW) 07/23/16 17:30 Amorphous Sediment FEW URATES (NONE SEEN) 07/23/16 17:30 Urine Bacteria MANY /hpf (NONE SEEN) 07/23/16 17:30 Ur Random Sodium 60 mmol/L 07/25/16 23:40 Urine Creatinine 44.4 mg/dl (Not Estab.) 07/25/16 23:40 Urine Microalbumin 173.5 ug/mL (Not Estab.) 07/25/16 23:40 Microalb/Creat Ratio 390.8 mg/g creat (0.0-30.0) H 07/25/16 23:40 - Physical Exam Vitals and I&O: Vital Signs Temp 98.2 F 07/28/16 16:37 Pulse 69 07/28/16 17:12 Resp 17 07/28/16 17:00 BP 144/80 07/28/16 16:37 Pulse Ox 100 07/28/16 16:37 Intake & Output 07/27/16 07/28/16 07/28/16 17:59 06:59 18:59 Intake Total 1300 Balance 1300 Intake: Intake, IV Amount 1000 Sodium Chloride 0.45% 1, 1000 000 ml @ 60 mls/hr IV . [id number] [facility] Rx#:[id number] Oral 300 Other: # Voids 3 # Bowel Movements 1 Active Medications: Current Medications Acetaminophen (Tylenol) 650 mg PO Q4HR PRN PRN Reason: PAIN Stop: 09/21/16 22:09 Al Hydrox/Mg Hydrox/Simethicone (Maalox) 30 ml PO Q6H PRN PRN Reason: GERD Atorvastatin Calcium (Lipitor) 10 mg PO [facility] PRN Reason: Protocol Stop: 09/22/16 20:59 Last Admin: 07/27/16 21:25 Dose: 10 mg Ciprofloxacin (Cipro) 250 mg PO BID [facility] Stop: 09/23/16 08:59 Last Admin: 07/28/16 17:12 Dose: 250 mg Clonidine HCl (Catapres) 0.1 mg PO Q4HR PRN PRN Reason: SBP >160 Stop: 09/22/16 01:04 Last Admin: 07/27/16 16:25 Dose: 0.1 mg Clonidine HCl (Catapres) 0.2 mg PO BID [facility] Stop: 09/22/16 16:59 Last Admin: 07/28/16 17:12 Dose: Not Given Docusate Sodium (Colace) 100 mg PO Q12H PRN PRN Reason: Constipation Stop: 09/21/16 22:09 Donepezil HCl (Aricept) 5 mg PO [facility] Stop: 09/23/16 20:59 Last Admin: 07/27/16 21:26 Dose: 5 mg Escitalopram Oxalate (Lexapro) 10 mg PO HS [facility] PRN Reason: Protocol Stop: 09/22/16 20:59 Last Admin: 07/27/16 21:26 Dose: 10 mg Sodium Chloride (Nacl 0.45%) 1,000 mls @ 60 mls/hr IV .[id number] [facility] Stop: 09/21/16 19:57 Last Admin: 07/28/16 14:48 Dose: 60 mls/hr Levothyroxine Sodium (Synthroid) 0.125 mg PO QDAC [facility] Stop: 09/24/16 07:29 Last Admin: 07/28/16 06:31 Dose: 0.125 mg Megestrol Acetate (Megace) 400 mg PO BID [facility] Stop: 09/22/16 08:59 Last Admin: 07/28/16 17:12 Dose: 400 mg Miscellaneous (Nebivolol Hcl [Bystolic]) 10 mg PO DAILY [facility] Stop: 09/22/16 08:59 Mupirocin (Bactroban Oint) 1 appl NS BID [facility] Stop: 07/30/16 09:01 Last Admin: 07/28/16 17:14 Dose: 1 appl Pantoprazole Sodium (Protonix) 40 mg PO DAILY [facility] Stop: 09/22/16 08:59 Last Admin: 07/28/16 08:52 Dose: 40 mg Promethazine HCl/Dextromethorphan (Phenergan Dm 6.25/15mg-5 Ml) 5 ml PO TID PRN PRN Reason: Cough Stop: 09/21/16 22:09 General: no acute distress, well developed, well nourished HEENT: atraumatic, normocephalic, PERRLA, EOMI, moist mucous membrane Neck: supple Cardiovascular: S1S2, regular Lungs: clear to auscultation bilaterally, clear to percussion Abdomen: soft, no tender, no distended Extremities: no cyanosis, no clubbing, no edema Neurological: awake, alert Skin: intact Infectious Disease Assmt/Plan - Problem List Patient Problems: All Active Problems GENERALIZED WEAKNESS (Acute) dehydartion (Acute) gait disorder (Acute) hypothyroidm (Acute) osteoporosis (Acute) prerenal azotemiaa improving (Acute) - Assessment Assessment: Impression: 1. UTI - E coli. 2. JORDI 3. HTN. Recommendations: Continue cipro po bid for total 7 days. Meanwhile, follow up on renal US. Nutritional Asmnt/Malnutr-PDOC - Dietary Evaluation Malnutrition Findings (Please click <Entered> for more info): Nutritional Asmnt/Malnutrition Start: 07/24/16 17: 36 Text: Status: Complete Freq: Document 07/24/16 17:36 GSUN (Rec: 07/24/16 17:51 [email or web address] [email or web address]) Nutritional Asmnt/Malnutrition Patient General Information Nutritional Screening High Risk Screening Diagnosis ER: infectious encephalopathy, acute on chronic CKD, dehydration, FTT Pertinent Medical Hx/Surgical Hx ER: HTN, dyslipidemia, throid disorder, dementia, CKD Subjective Information 80 year old female from home. Pt was asleep during visit, spoke to son at bedside. Son reported pt fell around 1 month ago, was admitted to rehab and ordered appetite stimulant and was eating well with possible weight gain, pt was then discharged home with caregiver who comes by. Son began noticing recent decline in PO intake, barely ate breakfast and lunch. Son stated pt usually drinks Ensure at home. Son denied difficulties chewing/ swallowing. Current Diet Order/ Nutrition Support Low sodium 2gm Pertinent Medications Maalox, Lipitor, Catapres, Colace, Synthroid, Megace, Protonix Pertinent Labs 07/23: BUN 40H, creatinine 1.8H 07/24: BUN 33H (improving), creaitnine 1.5H (improving), potassium 4.1 Nutritional Hx/Data Height 1.6 m Height (Calculated Centimeters) 160.0 Current Weight (lbs) 68.13 kg Weight (Calculated Kilograms) 68.1 Weight (Calculated Grams) 16132.6 Usual body Weight (lbs) 130 [place] Body Weight 120 Weight Status Overweight GI Symptoms Food Allergies No Cultural/Ethnic/Anglican Belief Unknown. Usual diet at home [place]. Skin Integrity/Comment: Non-pitting edema bilateral legs and right arm Current %PO Poor (25-49%) Estimated Nutritional Goals Calories/Kcals/Kg UBW 130lb/59kg, 30-35kcal/kg Kcals Calculated 1770-2065kcal Protein g/kg: UBW 1.2-1.4g/kg Protein Calculated 71-83g Fluid: ml 1770-2065ml (1ml/kcal) Nutritional Problem 1. Problem Problem Increased protein and kcal needs related to Etiology hypermetabolic state, recent decline in PO intake aeb Signs/Symptoms: ER: sepsis and FFT, son report PO intake <25% Intervention/Recommendation Comments 1. Continue with low sodium diet. Current PO intake is not meeting nutritional needs. 2. Recommend Novasource Renal BID for additional kcal and protein to better meet nutritional needs. Expected Outcomes/Goals Expected Outcomes/Goals 1. PO intake to meet 100% of estimated nutritional needs.
[2016-07-28] MEDS: Atorvastatin Calcium 10 MG TAB PO SCH (21:34)
[2016-07-29] MEDS: Levothyroxine 0.125 Mg Tab PO SCH (06:43)
[2016-07-29 07:15] LABS: TROP I 0.05 ng/mL (0.01-0.05)
[2016-07-29] MEDS: Pantoprazole 40 mg EC Tab PO SCH (08:51)
[2016-07-29] MEDS: Multivitamin w/ Minerals Tab PO SCH (08:51)
[2016-07-29] MEDS: Sodium Chloride 0.45% 1,000 ML IV SCH (08:53)
--- NOTE | 2016-07-29 10:35 | General Progress Note ---
Subjective - Review of Systems Subjective: patient is awake has high tsh Objective - Results Result Diagrams: 07/28/16 05:23 07/28/16 05:23 Recent Labs: Laboratory Last Values WBC 5.8 Th/cmm (4.8-10.8) 07/28/16 05:23 RBC 3.30 Mil/cmm (3.80-5.20) L 07/28/16 05:23 Hgb 10.4 gm/dL (11.7-16.1) L 07/28/16 05:23 Hct 31.0 % (35.0-45.0) L 07/28/16 05:23 MCV 93.8 fl (81-100) 07/28/16 05:23 MCH 31.5 pg (27.0-31.0) H 07/28/16 05:23 MCHC Differential 33.6 pg (28.0-36.0) 07/28/16 05:23 RDW 13.5 % (11.5-20.0) 07/28/16 05:23 Plt Count 200 Th/cmm (150-400) 07/28/16 05:23 MPV 8.0 fl 07/28/16 05:23 Neutrophils % 71.0 % (40.0-80.0) 07/28/16 05:23 Lymphocytes % 20.7 % (20.0-50.0) 07/28/16 05:23 Monocytes % 7.1 % (2.0-10.0) 07/28/16 05:23 Eosinophils % 0.9 % (0.0-5.0) 07/28/16 05:23 Basophils % 0.3 % (0.0-2.0) 07/28/16 05:23 Eos Smear Source URINE 07/25/16 23:40 Eos Smear Total Cells NONE SEEN (NONE SEEN) 07/25/16 23:40 PT 11.0 SECONDS (9.5-11.5) 07/23/16 17:15 INR 1.06 (0.5-1.4) 07/23/16 17:15 PTT (Actin FS) 25.7 SECONDS (26.0-38.0) L 07/23/16 17:15 Sodium 137 mEq/L (136-145) 07/28/16 05:23 Potassium 3.8 mEq/L (3.5-5.1) 07/28/16 05:23 Chloride 110 mEq/L (98-107) H 07/28/16 05:23 Carbon Dioxide 20.4 mEq/L (21.0-31.0) L 07/28/16 05:23 Anion Gap 10.4 (7.0-16.0) 07/28/16 05:23 BUN 33 mg/dL (7-25) H 07/28/16 05:23 Creatinine 1.4 mg/dL (0.6-1.2) H 07/28/16 05:23 Est GFR ( Amer) TNP 07/28/16 05:23 Est GFR (Non-Af Amer) TNP 07/28/16 05:23 BUN/Creatinine Ratio 23.6 07/28/16 05:23 Glucose 104 mg/dL (70-105) 07/28/16 05:23 Whole Bld Lactic Acid 1.04 mmol/L (0.60-1.99) 07/23/16 17:15 Uric Acid 4.8 mg/dL (2.3-6.6) 07/26/16 04:37 Calcium 8.4 mg/dL (8.6-10.3) L 07/28/16 05:23 Phosphorus 3.1 mg/dL (2.5-5.0) 07/26/16 04:37 Magnesium 2.0 mg/dL (1.9-2.7) 07/26/16 04:37 Total Bilirubin 0.4 mg/dL (0.3-1.0) 07/24/16 06:05 AST 12 U/L (13-39) L 07/24/16 06:05 ALT 13 U/L (7-52) 07/24/16 06:05 Alkaline Phosphatase 45 U/L (34-104) 07/24/16 06:05 Ammonia 25 umol/L (16-53) 07/26/16 07:10 Creatine Kinase 18 U/L (30-223) L 07/27/16 04:48 Troponin I 0.05 ng/mL (0.01-0.05) 07/29/16 06:30 C-Reactive Protein mg/dL (0.0-0.9) 07/27/16 04:48 B-Natriuretic Peptide 285.0 pg/mL (5.0-100.0) H 07/29/16 06:30 Total Protein 5.5 gm/dL (6.0-8.3) L 07/24/16 06:05 Albumin 3.0 gm/dL (3.7-5.3) L 07/24/16 06:05 Globulin 2.5 gm/dL 07/24/16 06:05 Albumin/Globulin Ratio 1.2 (1.0-1.8) 07/24/16 06:05 Triglycerides 96 mg/dL (<150) 07/26/16 04:37 Cholesterol 121 mg/dL (<200) 07/26/16 04:37 LDL Cholesterol Direct 78 mg/dL (75-193) 07/26/16 04:37 HDL Cholesterol 34 mg/dL (23-92) 07/26/16 04:37 TSH 17.55 uIU/ml (0.34-5.60) H 07/25/16 05:50 Urine Source [place] 07/23/16 17:30 Urine Color YELLOW 07/23/16 17:30 Urine Clarity CLOUDY (CLEAR) H 07/23/16 17:30 Urine pH 5.5 07/23/16 17:30 Ur Specific [place] 1.020 (1.005-1.030) 07/23/16 17:30 Urine Protein 100 mg/dL (NEGATIVE) H 07/23/16 17:30 Urine Glucose (UA) NEGATIVE mg/dL (NEGATIVE) 07/23/16 17:30 Urine Ketones NEGATIVE mg/dL (NEGATIVE) 07/23/16 17:30 Urine Blood MODERATE (NEGATIVE) H 07/23/16 17:30 Urine Nitrate NEGATIVE (NEGATIVE) 07/23/16 17:30 Urine Bilirubin NEGATIVE (NEGATIVE) 07/23/16 17:30 Urine Urobilinogen 0.2 E.U./dL (0.2 - 1.0) 07/23/16 17:30 Ur Leukocyte Esterase MODERATE (NEGATIVE) H 07/23/16 17:30 Urine RBC 2-5 /hpf (0-5) 07/23/16 17:30 Urine WBC 50-100 /hpf (0-5) H 07/23/16 17:30 Ur Epithelial Cells FEW /lpf (FEW) 07/23/16 17:30 Amorphous Sediment FEW URATES (NONE SEEN) 07/23/16 17:30 Urine Bacteria MANY /hpf (NONE SEEN) 07/23/16 17:30 Ur Random Sodium 60 mmol/L 07/25/16 23:40 Urine Creatinine 44.4 mg/dl (Not Estab.) 07/25/16 23:40 Urine Microalbumin 173.5 ug/mL (Not Estab.) 07/25/16 23:40 Microalb/Creat Ratio 390.8 mg/g creat (0.0-30.0) H 07/25/16 23:40 - Physical Exam Vitals and I&O: Vital Signs Temp 98.0 F 07/29/16 07:55 Pulse 111 07/29/16 08:51 Resp 16 07/29/16 08:00 BP 205/91 07/29/16 07:55 Pulse Ox 98 07/29/16 07:55 Intake & Output 07/28/16 07/29/16 07/29/16 18:59 06:59 18:59 Intake Total 9260 632 6378 Balance 4754 040 6424 Intake: Intake, IV Amount 1000 1000 Sodium Chloride 0.45% 1, 1000 1000 000 ml @ 60 mls/hr IV . [id number] [facility] Rx#:[id number] Oral 300 200 Other: # Voids 3 3 # Bowel Movements 1 Stool Characteristics Soft Soft Active Medications: Current Medications Acetaminophen (Tylenol) 650 mg PO Q4HR PRN PRN Reason: PAIN Stop: 09/21/16 22:09 Al Hydrox/Mg Hydrox/Simethicone (Maalox) 30 ml PO Q6H PRN PRN Reason: GERD Atorvastatin Calcium (Lipitor) 10 mg PO HS [facility] PRN Reason: Protocol Stop: 09/22/16 20:59 Last Admin: 07/28/16 21:34 Dose: 10 mg Ciprofloxacin (Cipro) 250 mg PO BID [facility] Stop: 09/23/16 08:59 Last Admin: 07/29/16 08:50 Dose: 250 mg Clonidine HCl (Catapres) 0.1 mg PO Q4HR PRN PRN Reason: SBP >160 Stop: 09/22/16 01:04 Last Admin: 07/29/16 00:38 Dose: 0.1 mg Clonidine HCl (Catapres) 0.2 mg PO BID [facility] Stop: 09/22/16 16:59 Last Admin: 07/29/16 08:51 Dose: 0.2 mg Docusate Sodium (Colace) 100 mg PO Q12H PRN PRN Reason: Constipation Stop: 09/21/16 22:09 Donepezil HCl (Aricept) 5 mg PO HS [facility] Stop: 09/23/16 20:59 Last Admin: 07/28/16 21:34 Dose: 5 mg Escitalopram Oxalate (Lexapro) 10 mg PO HS [facility] PRN Reason: Protocol Stop: 09/22/16 20:59 Last Admin: 07/28/16 21:34 Dose: 10 mg Sodium Chloride (Nacl 0.45%) 1,000 mls @ 60 mls/hr IV .[id number] [facility] Stop: 09/21/16 19:57 Last Admin: 07/29/16 08:53 Dose: 60 mls/hr Levothyroxine Sodium (Synthroid) 0.125 mg PO QDAC [facility] Stop: 09/24/16 07:29 Last Admin: 07/29/16 06:43 Dose: 0.125 mg Megestrol Acetate (Megace) 400 mg PO BID [facility] Stop: 09/22/16 08:59 Last Admin: 07/29/16 08:50 Dose: 400 mg Miscellaneous (Nebivolol Hcl [Bystolic]) 10 mg PO DAILY [facility] Stop: 09/22/16 08:59 Mupirocin (Bactroban Oint) 1 appl NS BID [facility] Stop: 07/30/16 09:01 Last Admin: 07/28/16 17:14 Dose: 1 appl Pantoprazole Sodium (Protonix) 40 mg PO DAILY [facility] Stop: 09/22/16 08:59 Last Admin: 07/29/16 08:51 Dose: 40 mg Promethazine HCl/Dextromethorphan (Phenergan Dm 6.25/15mg-5 Ml) 5 ml PO TID PRN PRN Reason: Cough Stop: 09/21/16 22:09 General: No acute distress Neck: Supple Cardiovascular: Regular rate, Rubs Lungs: Clear to auscultation Abdomen: Bowel sounds, Distended Assessment/Plan - Problem List Patient Problems: All Active Problems GENERALIZED WEAKNESS (Acute) dehydartion (Acute) gait disorder (Acute) hypothyroidm (Acute) osteoporosis (Acute) prerenal azotemiaa improving (Acute) - Assessment Assessment: confusion general weakness UTI HTN Hyperlipidemia thyroids disorder dementia - Plan Plan: monitor vitals/diet labs iv antibiotic fall precaution Nutritional Asmnt/Malnutr-PDOC - Dietary Evaluation Malnutrition Findings (Please click <Entered> for more info): Nutritional Asmnt/Malnutrition Start: 07/24/16 17: 36 Text: Status: Complete Freq: Document 07/24/16 17:36 FLORINA (Rec: 07/24/16 17:51 [email or web address]) Nutritional Asmnt/Malnutrition Patient General Information Nutritional Screening High Risk Screening Diagnosis ER: infectious encephalopathy, acute on chronic CKD, dehydration, FTT Pertinent Medical Hx/Surgical Hx ER: HTN, dyslipidemia, throid disorder, dementia, CKD Subjective Information 80 year old female from home. Pt was asleep during visit, spoke to son at bedside. Son reported pt fell around 1 month ago, was admitted to rehab and ordered appetite stimulant and was eating well with possible weight gain, pt was then discharged home with caregiver who comes by. Son began noticing recent decline in PO intake, barely ate breakfast and lunch. Son stated pt usually drinks Ensure at home. Son denied difficulties chewing/ swallowing. Current Diet Order/ Nutrition Support Low sodium 2gm Pertinent Medications Maalox, Lipitor, Catapres, Colace, Synthroid, Megace, Protonix Pertinent Labs 07/23: BUN 40H, creatinine 1.8H 07/24: BUN 33H (improving), creaitnine 1.5H (improving), potassium 4.1 Nutritional Hx/Data Height 1.6 m Height (Calculated Centimeters) 160.0 Current Weight (lbs) 68.13 kg Weight (Calculated Kilograms) 68.1 Weight (Calculated Grams) 93718.6 Usual body Weight (lbs) 130 [place] Body Weight 120 Weight Status Overweight GI Symptoms Food Allergies No Cultural/Ethnic/Episcopalian Belief Unknown. Usual diet at home [place]. Skin Integrity/Comment: Non-pitting edema bilateral legs and right arm Current %PO Poor (25-49%) Estimated Nutritional Goals Calories/Kcals/Kg UBW 130lb/59kg, 30-35kcal/kg Kcals Calculated 1770-2065kcal Protein g/kg: UBW 1.2-1.4g/kg Protein Calculated 71-83g Fluid: ml 1770-2065ml (1ml/kcal) Nutritional Problem 1. Problem Problem Increased protein and kcal needs related to Etiology hypermetabolic state, recent decline in PO intake aeb Signs/Symptoms: ER: sepsis and FFT, son report PO intake <25% Intervention/Recommendation Comments 1. Continue with low sodium diet. Current PO intake is not meeting nutritional needs. 2. Recommend Novasource Renal BID for additional kcal and protein to better meet nutritional needs. Expected Outcomes/Goals Expected Outcomes/Goals 1. PO intake to meet 100% of estimated nutritional needs.
--- NOTE | 2016-07-29 13:20 | General Progress Note ---
Subjective - Review of Systems Service Date: 07/29/16 Subjective: sleeping, comfortable, arousable Objective - Results Result Diagrams: 07/28/16 05:23 07/28/16 05:23 Recent Labs: Laboratory Last Values WBC 5.8 Th/cmm (4.8-10.8) 07/28/16 05:23 RBC 3.30 Mil/cmm (3.80-5.20) L 07/28/16 05:23 Hgb 10.4 gm/dL (11.7-16.1) L 07/28/16 05:23 Hct 31.0 % (35.0-45.0) L 07/28/16 05:23 MCV 93.8 fl (81-100) 07/28/16 05:23 MCH 31.5 pg (27.0-31.0) H 07/28/16 05:23 MCHC Differential 33.6 pg (28.0-36.0) 07/28/16 05:23 RDW 13.5 % (11.5-20.0) 07/28/16 05:23 Plt Count 200 Th/cmm (150-400) 07/28/16 05:23 MPV 8.0 fl 07/28/16 05:23 Neutrophils % 71.0 % (40.0-80.0) 07/28/16 05:23 Lymphocytes % 20.7 % (20.0-50.0) 07/28/16 05:23 Monocytes % 7.1 % (2.0-10.0) 07/28/16 05:23 Eosinophils % 0.9 % (0.0-5.0) 07/28/16 05:23 Basophils % 0.3 % (0.0-2.0) 07/28/16 05:23 Eos Smear Source URINE 07/25/16 23:40 Eos Smear Total Cells NONE SEEN (NONE SEEN) 07/25/16 23:40 PT 11.0 SECONDS (9.5-11.5) 07/23/16 17:15 INR 1.06 (0.5-1.4) 07/23/16 17:15 PTT (Actin FS) 25.7 SECONDS (26.0-38.0) L 07/23/16 17:15 Sodium 137 mEq/L (136-145) 07/28/16 05:23 Potassium 3.8 mEq/L (3.5-5.1) 07/28/16 05:23 Chloride 110 mEq/L (98-107) H 07/28/16 05:23 Carbon Dioxide 20.4 mEq/L (21.0-31.0) L 07/28/16 05:23 Anion Gap 10.4 (7.0-16.0) 07/28/16 05:23 BUN 33 mg/dL (7-25) H 07/28/16 05:23 Creatinine 1.4 mg/dL (0.6-1.2) H 07/28/16 05:23 Est GFR ( Amer) TNP 07/28/16 05:23 Est GFR (Non-Af Amer) TNP 07/28/16 05:23 BUN/Creatinine Ratio 23.6 07/28/16 05:23 Glucose 104 mg/dL (70-105) 07/28/16 05:23 Whole Bld Lactic Acid 1.04 mmol/L (0.60-1.99) 07/23/16 17:15 Uric Acid 4.8 mg/dL (2.3-6.6) 07/26/16 04:37 Calcium 8.4 mg/dL (8.6-10.3) L 07/28/16 05:23 Phosphorus 3.1 mg/dL (2.5-5.0) 07/26/16 04:37 Magnesium 2.0 mg/dL (1.9-2.7) 07/26/16 04:37 Total Bilirubin 0.4 mg/dL (0.3-1.0) 07/24/16 06:05 AST 12 U/L (13-39) L 07/24/16 06:05 ALT 13 U/L (7-52) 07/24/16 06:05 Alkaline Phosphatase 45 U/L (34-104) 07/24/16 06:05 Ammonia 25 umol/L (16-53) 07/26/16 07:10 Creatine Kinase 18 U/L (30-223) L 07/27/16 04:48 Troponin I 0.05 ng/mL (0.01-0.05) 07/29/16 06:30 C-Reactive Protein mg/dL (0.0-0.9) 07/27/16 04:48 B-Natriuretic Peptide 285.0 pg/mL (5.0-100.0) H 07/29/16 06:30 Total Protein 5.5 gm/dL (6.0-8.3) L 07/24/16 06:05 Albumin 3.0 gm/dL (3.7-5.3) L 07/24/16 06:05 Globulin 2.5 gm/dL 07/24/16 06:05 Albumin/Globulin Ratio 1.2 (1.0-1.8) 07/24/16 06:05 Triglycerides 96 mg/dL (<150) 07/26/16 04:37 Cholesterol 121 mg/dL (<200) 07/26/16 04:37 LDL Cholesterol Direct 78 mg/dL (75-193) 07/26/16 04:37 HDL Cholesterol 34 mg/dL (23-92) 07/26/16 04:37 TSH 17.55 uIU/ml (0.34-5.60) H 07/25/16 05:50 Urine Source [place] 07/23/16 17:30 Urine Color YELLOW 07/23/16 17:30 Urine Clarity CLOUDY (CLEAR) H 07/23/16 17:30 Urine pH 5.5 07/23/16 17:30 Ur Specific [place] 1.020 (1.005-1.030) 07/23/16 17:30 Urine Protein 100 mg/dL (NEGATIVE) H 07/23/16 17:30 Urine Glucose (UA) NEGATIVE mg/dL (NEGATIVE) 07/23/16 17:30 Urine Ketones NEGATIVE mg/dL (NEGATIVE) 07/23/16 17:30 Urine Blood MODERATE (NEGATIVE) H 07/23/16 17:30 Urine Nitrate NEGATIVE (NEGATIVE) 07/23/16 17:30 Urine Bilirubin NEGATIVE (NEGATIVE) 07/23/16 17:30 Urine Urobilinogen 0.2 E.U./dL (0.2 - 1.0) 07/23/16 17:30 Ur Leukocyte Esterase MODERATE (NEGATIVE) H 07/23/16 17:30 Urine RBC 2-5 /hpf (0-5) 07/23/16 17:30 Urine WBC 50-100 /hpf (0-5) H 07/23/16 17:30 Ur Epithelial Cells FEW /lpf (FEW) 07/23/16 17:30 Amorphous Sediment FEW URATES (NONE SEEN) 07/23/16 17:30 Urine Bacteria MANY /hpf (NONE SEEN) 07/23/16 17:30 Ur Random Sodium 60 mmol/L 07/25/16 23:40 Urine Creatinine 44.4 mg/dl (Not Estab.) 07/25/16 23:40 Urine Microalbumin 173.5 ug/mL (Not Estab.) 07/25/16 23:40 Microalb/Creat Ratio 390.8 mg/g creat (0.0-30.0) H 07/25/16 23:40 - Physical Exam Vitals and I&O: Vital Signs Temp 98.1 F 07/29/16 12:15 Pulse 70 07/29/16 12:15 Resp 20 07/29/16 12:15 BP 137/73 07/29/16 12:15 Pulse Ox 96 07/29/16 12:15 Intake & Output 07/28/16 07/29/16 07/29/16 18:59 06:59 18:59 Intake Total 9705 982 3086 Balance 3050 332 7090 Intake: Intake, IV Amount 1000 1000 Sodium Chloride 0.45% 1, 1000 1000 000 ml @ 60 mls/hr IV . [id number] [facility] Rx#:[id number] Oral 300 200 Other: # Voids 3 3 # Bowel Movements 1 Stool Characteristics Soft Soft Active Medications: Current Medications Acetaminophen (Tylenol) 650 mg PO Q4HR PRN PRN Reason: PAIN Stop: 09/21/16 22:09 Al Hydrox/Mg Hydrox/Simethicone (Maalox) 30 ml PO Q6H PRN PRN Reason: GERD Atorvastatin Calcium (Lipitor) 10 mg PO HS [facility] PRN Reason: Protocol Stop: 09/22/16 20:59 Last Admin: 07/28/16 21:34 Dose: 10 mg Ciprofloxacin (Cipro) 250 mg PO BID [facility] Stop: 09/23/16 08:59 Last Admin: 07/29/16 08:50 Dose: 250 mg Clonidine HCl (Catapres) 0.1 mg PO Q4HR PRN PRN Reason: SBP >160 Stop: 09/22/16 01:04 Last Admin: 07/29/16 00:38 Dose: 0.1 mg Clonidine HCl (Catapres) 0.2 mg PO BID [facility] Stop: 09/22/16 16:59 Last Admin: 07/29/16 08:51 Dose: 0.2 mg Docusate Sodium (Colace) 100 mg PO Q12H PRN PRN Reason: Constipation Stop: 09/21/16 22:09 Donepezil HCl (Aricept) 5 mg PO HS [facility] Stop: 09/23/16 20:59 Last Admin: 07/28/16 21:34 Dose: 5 mg Escitalopram Oxalate (Lexapro) 10 mg PO HS [facility] PRN Reason: Protocol Stop: 09/22/16 20:59 Last Admin: 07/28/16 21:34 Dose: 10 mg Sodium Chloride (Nacl 0.45%) 1,000 mls @ 60 mls/hr IV .[id number] [facility] Stop: 09/21/16 19:57 Last Admin: 07/29/16 08:53 Dose: 60 mls/hr Levothyroxine Sodium (Synthroid) 0.125 mg PO QDAC [facility] Stop: 09/24/16 07:29 Last Admin: 07/29/16 06:43 Dose: 0.125 mg Megestrol Acetate (Megace) 400 mg PO BID [facility] Stop: 09/22/16 08:59 Last Admin: 07/29/16 08:50 Dose: 400 mg Miscellaneous (Nebivolol Hcl [Bystolic]) 10 mg PO DAILY [facility] Stop: 09/22/16 08:59 Mupirocin (Bactroban Oint) 1 appl NS BID [facility] Stop: 07/30/16 09:01 Last Admin: 07/28/16 17:14 Dose: 1 appl Pantoprazole Sodium (Protonix) 40 mg PO DAILY [facility] Stop: 09/22/16 08:59 Last Admin: 07/29/16 08:51 Dose: 40 mg Promethazine HCl/Dextromethorphan (Phenergan Dm 6.25/15mg-5 Ml) 5 ml PO TID PRN PRN Reason: Cough Stop: 09/21/16 22:09 General: No acute distress HEENT: Atraumatic, Mucous membr. moist/pink Neck: Supple, +2 carotid pulse wo bruit Cardiovascular: Regular rate, Normal S1, Normal S2 Lungs: Other (decrease BS) Abdomen: Bowel sounds, Soft Extremities: no Edema Neurological: Sensation intact Skin: no Rash Assessment/Plan - Problem List Patient Problems: All Active Problems GENERALIZED WEAKNESS (Acute) dehydartion (Acute) gait disorder (Acute) hypothyroidm (Acute) osteoporosis (Acute) prerenal azotemiaa improving (Acute) - Assessment Assessment: CKD 4 dehydration/ FTT hypothyroid Ess HTN dyslipidemia anemia CD depression mod malnutrition - Plan Plan: Lab - Result Diagrams 07/26/16 04:37 Lab - Result Diagrams 07/28/16 05:23 07/28/16 05:23 07/26/16 04:37 Current Medications Acetaminophen (Tylenol) 650 mg PO Q4HR PRN PRN Reason: PAIN Stop: 09/21/16 22:09 Al Hydrox/Mg Hydrox/Simethicone (Maalox) 30 ml PO Q6H PRN PRN Reason: GERD Atorvastatin Calcium (Lipitor) 10 mg PO HS [facility] PRN Reason: Protocol Stop: 09/22/16 20:59 Last Admin: 07/25/16 21:19 Dose: 10 mg Ciprofloxacin (Cipro) 250 mg PO BID [facility] Stop: 09/23/16 08:59 Last Admin: 07/26/16 09:44 Dose: 250 mg Clonidine HCl (Catapres) 0.1 mg PO Q4HR PRN PRN Reason: SBP >160 Stop: 09/22/16 01:04 Last Admin: 07/26/16 04:52 Dose: 0.1 mg Clonidine HCl (Catapres) 0.2 mg PO BID [facility] Stop: 09/22/16 16:59 Last Admin: 07/26/16 09:43 Dose: 0.2 mg Docusate Sodium (Colace) 100 mg PO Q12H PRN PRN Reason: Constipation Stop: 09/21/16 22:09 Donepezil HCl (Aricept) 5 mg PO HS [facility] Stop: 09/23/16 20:59 Last Admin: 07/25/16 21:19 Dose: 5 mg Escitalopram Oxalate (Lexapro) 10 mg PO HS [facility] PRN Reason: Protocol Stop: 09/22/16 20:59 Last Admin: 07/25/16 21:19 Dose: 10 mg Sodium Chloride (Nacl 0.45%) 1,000 mls @ 100 mls/hr IV .Q10H [facility] Stop: 09/21/16 19:57 Last Admin: 07/26/16 03:31 Dose: 100 mls/hr Levothyroxine Sodium (Synthroid) 0.125 mg PO QDAC [facility] Stop: 09/24/16 07:29 Last Admin: 07/26/16 06:42 Dose: 0.125 mg Megestrol Acetate (Megace) 400 mg PO BID [facility] Stop: 09/22/16 08:59 Last Admin: 07/26/16 09:42 Dose: 400 mg Miscellaneous (Nebivolol Hcl [Bystolic]) 10 mg PO DAILY [facility] Stop: 09/22/16 08:59 Mupirocin (Bactroban Oint) 1 appl NS BID [facility] Stop: 07/30/16 09:01 Last Admin: 07/26/16 09:41 Dose: 1 appl Pantoprazole Sodium (Protonix) 40 mg PO DAILY [facility] Stop: 09/22/16 08:59 Last Admin: 07/26/16 09:44 Dose: 40 mg Promethazine HCl/Dextromethorphan (Phenergan Dm 6.25/15mg-5 Ml) 5 ml PO TID PRN PRN Reason: Cough Stop: 09/21/16 22:09 cr. stable @ 1.4, might be baseline continue ivf maintain abx encouraged po intake FENa 1.14% suggestive of intrinsic renal failure request pati count per staff eating 50% Nutritional Asmnt/Malnutr-PDOC - Dietary Evaluation Malnutrition Findings (Please click <Entered> for more info): Nutritional Asmnt/Malnutrition Start: 07/24/16 17: 36 Text: Status: Complete Freq: Document 07/24/16 17:36 GSUN (Rec: 07/24/16 17:51 [email or web address] [email or web address]) Nutritional Asmnt/Malnutrition Patient General Information Nutritional Screening High Risk Screening Diagnosis ER: infectious encephalopathy, acute on chronic CKD, dehydration, FTT Pertinent Medical Hx/Surgical Hx ER: HTN, dyslipidemia, throid disorder, dementia, CKD Subjective Information 80 year old female from home. Pt was asleep during visit, spoke to son at bedside. Son reported pt fell around 1 month ago, was admitted to rehab and ordered appetite stimulant and was eating well with possible weight gain, pt was then discharged home with caregiver who comes by. Son began noticing recent decline in PO intake, barely ate breakfast and lunch. Son stated pt usually drinks Ensure at home. Son denied difficulties chewing/ swallowing. Current Diet Order/ Nutrition Support Low sodium 2gm Pertinent Medications Maalox, Lipitor, Catapres, Colace, Synthroid, Megace, Protonix Pertinent Labs 07/23: BUN 40H, creatinine 1.8H 07/24: BUN 33H (improving), creaitnine 1.5H (improving), potassium 4.1 Nutritional Hx/Data Height 1.6 m Height (Calculated Centimeters) 160.0 Current Weight (lbs) 68.13 kg Weight (Calculated Kilograms) 68.1 Weight (Calculated Grams) 25999.6 Usual body Weight (lbs) 130 [place] Body Weight 120 Weight Status Overweight GI Symptoms Food Allergies No Cultural/Ethnic/Rastafarian Belief Unknown. Usual diet at home [place]. Skin Integrity/Comment: Non-pitting edema bilateral legs and right arm Current %PO Poor (25-49%) Estimated Nutritional Goals Calories/Kcals/Kg UBW 130lb/59kg, 30-35kcal/kg Kcals Calculated 1770-2065kcal Protein g/kg: UBW 1.2-1.4g/kg Protein Calculated 71-83g Fluid: ml 1770-2065ml (1ml/kcal) Nutritional Problem 1. Problem Problem Increased protein and kcal needs related to Etiology hypermetabolic state, recent decline in PO intake aeb Signs/Symptoms: ER: sepsis and FFT, son report PO intake <25% Intervention/Recommendation Comments 1. Continue with low sodium diet. Current PO intake is not meeting nutritional needs. 2. Recommend Novasource Renal BID for additional kcal and protein to better meet nutritional needs. Expected Outcomes/Goals Expected Outcomes/Goals 1. PO intake to meet 100% of estimated nutritional needs.
--- NOTE | 2016-07-29 13:41 | Infectious Disease Prog Note ---
Infectious Disease Subjective - Review of Systems Service Date: 07/29/16 Subjective: There is no new change. There is no fever. Infectious Disease Objective - Results Result Diagrams: 07/28/16 05:23 07/28/16 05:23 Recent Labs: Laboratory Last Values WBC 5.8 Th/cmm (4.8-10.8) 07/28/16 05:23 RBC 3.30 Mil/cmm (3.80-5.20) L 07/28/16 05:23 Hgb 10.4 gm/dL (11.7-16.1) L 07/28/16 05:23 Hct 31.0 % (35.0-45.0) L 07/28/16 05:23 MCV 93.8 fl (81-100) 07/28/16 05:23 MCH 31.5 pg (27.0-31.0) H 07/28/16 05:23 MCHC Differential 33.6 pg (28.0-36.0) 07/28/16 05:23 RDW 13.5 % (11.5-20.0) 07/28/16 05:23 Plt Count 200 Th/cmm (150-400) 07/28/16 05:23 MPV 8.0 fl 07/28/16 05:23 Neutrophils % 71.0 % (40.0-80.0) 07/28/16 05:23 Lymphocytes % 20.7 % (20.0-50.0) 07/28/16 05:23 Monocytes % 7.1 % (2.0-10.0) 07/28/16 05:23 Eosinophils % 0.9 % (0.0-5.0) 07/28/16 05:23 Basophils % 0.3 % (0.0-2.0) 07/28/16 05:23 Eos Smear Source URINE 07/25/16 23:40 Eos Smear Total Cells NONE SEEN (NONE SEEN) 07/25/16 23:40 PT 11.0 SECONDS (9.5-11.5) 07/23/16 17:15 INR 1.06 (0.5-1.4) 07/23/16 17:15 PTT (Actin FS) 25.7 SECONDS (26.0-38.0) L 07/23/16 17:15 Sodium 137 mEq/L (136-145) 07/28/16 05:23 Potassium 3.8 mEq/L (3.5-5.1) 07/28/16 05:23 Chloride 110 mEq/L (98-107) H 07/28/16 05:23 Carbon Dioxide 20.4 mEq/L (21.0-31.0) L 07/28/16 05:23 Anion Gap 10.4 (7.0-16.0) 07/28/16 05:23 BUN 33 mg/dL (7-25) H 07/28/16 05:23 Creatinine 1.4 mg/dL (0.6-1.2) H 07/28/16 05:23 Est GFR ( Amer) TNP 07/28/16 05:23 Est GFR (Non-Af Amer) TNP 07/28/16 05:23 BUN/Creatinine Ratio 23.6 07/28/16 05:23 Glucose 104 mg/dL (70-105) 07/28/16 05:23 Whole Bld Lactic Acid 1.04 mmol/L (0.60-1.99) 07/23/16 17:15 Uric Acid 4.8 mg/dL (2.3-6.6) 07/26/16 04:37 Calcium 8.4 mg/dL (8.6-10.3) L 07/28/16 05:23 Phosphorus 3.1 mg/dL (2.5-5.0) 07/26/16 04:37 Magnesium 2.0 mg/dL (1.9-2.7) 07/26/16 04:37 Total Bilirubin 0.4 mg/dL (0.3-1.0) 07/24/16 06:05 AST 12 U/L (13-39) L 07/24/16 06:05 ALT 13 U/L (7-52) 07/24/16 06:05 Alkaline Phosphatase 45 U/L (34-104) 07/24/16 06:05 Ammonia 25 umol/L (16-53) 07/26/16 07:10 Creatine Kinase 18 U/L (30-223) L 07/27/16 04:48 Troponin I 0.05 ng/mL (0.01-0.05) 07/29/16 06:30 C-Reactive Protein mg/dL (0.0-0.9) 07/27/16 04:48 B-Natriuretic Peptide 285.0 pg/mL (5.0-100.0) H 07/29/16 06:30 Total Protein 5.5 gm/dL (6.0-8.3) L 07/24/16 06:05 Albumin 3.0 gm/dL (3.7-5.3) L 07/24/16 06:05 Globulin 2.5 gm/dL 07/24/16 06:05 Albumin/Globulin Ratio 1.2 (1.0-1.8) 07/24/16 06:05 Triglycerides 96 mg/dL (<150) 07/26/16 04:37 Cholesterol 121 mg/dL (<200) 07/26/16 04:37 LDL Cholesterol Direct 78 mg/dL (75-193) 07/26/16 04:37 HDL Cholesterol 34 mg/dL (23-92) 07/26/16 04:37 TSH 17.55 uIU/ml (0.34-5.60) H 07/25/16 05:50 Urine Source [place] 07/23/16 17:30 Urine Color YELLOW 07/23/16 17:30 Urine Clarity CLOUDY (CLEAR) H 07/23/16 17:30 Urine pH 5.5 07/23/16 17:30 Ur Specific [place] 1.020 (1.005-1.030) 07/23/16 17:30 Urine Protein 100 mg/dL (NEGATIVE) H 07/23/16 17:30 Urine Glucose (UA) NEGATIVE mg/dL (NEGATIVE) 07/23/16 17:30 Urine Ketones NEGATIVE mg/dL (NEGATIVE) 07/23/16 17:30 Urine Blood MODERATE (NEGATIVE) H 07/23/16 17:30 Urine Nitrate NEGATIVE (NEGATIVE) 07/23/16 17:30 Urine Bilirubin NEGATIVE (NEGATIVE) 07/23/16 17:30 Urine Urobilinogen 0.2 E.U./dL (0.2 - 1.0) 07/23/16 17:30 Ur Leukocyte Esterase MODERATE (NEGATIVE) H 07/23/16 17:30 Urine RBC 2-5 /hpf (0-5) 07/23/16 17:30 Urine WBC 50-100 /hpf (0-5) H 07/23/16 17:30 Ur Epithelial Cells FEW /lpf (FEW) 07/23/16 17:30 Amorphous Sediment FEW URATES (NONE SEEN) 07/23/16 17:30 Urine Bacteria MANY /hpf (NONE SEEN) 07/23/16 17:30 Ur Random Sodium 60 mmol/L 07/25/16 23:40 Urine Creatinine 44.4 mg/dl (Not Estab.) 07/25/16 23:40 Urine Microalbumin 173.5 ug/mL (Not Estab.) 07/25/16 23:40 Microalb/Creat Ratio 390.8 mg/g creat (0.0-30.0) H 07/25/16 23:40 - Physical Exam Vitals and I&O: Vital Signs Temp 98.1 F 07/29/16 12:15 Pulse 70 07/29/16 12:15 Resp 20 07/29/16 12:15 BP 137/73 07/29/16 12:15 Pulse Ox 96 07/29/16 12:15 Intake & Output 07/28/16 07/29/16 07/29/16 18:59 06:59 18:59 Intake Total 7068 042 0823 Balance 1456 957 0111 Intake: Intake, IV Amount 1000 1000 Sodium Chloride 0.45% 1, 1000 1000 000 ml @ 60 mls/hr IV . [id number] [facility] Rx#:[id number] Oral 300 200 Other: # Voids 3 3 # Bowel Movements 1 Stool Characteristics Soft Soft Active Medications: Current Medications Acetaminophen (Tylenol) 650 mg PO Q4HR PRN PRN Reason: PAIN Stop: 09/21/16 22:09 Al Hydrox/Mg Hydrox/Simethicone (Maalox) 30 ml PO Q6H PRN PRN Reason: GERD Atorvastatin Calcium (Lipitor) 10 mg PO HS [facility] PRN Reason: Protocol Stop: 09/22/16 20:59 Last Admin: 07/28/16 21:34 Dose: 10 mg Ciprofloxacin (Cipro) 250 mg PO BID [facility] Stop: 09/23/16 08:59 Last Admin: 07/29/16 08:50 Dose: 250 mg Clonidine HCl (Catapres) 0.1 mg PO Q4HR PRN PRN Reason: SBP >160 Stop: 09/22/16 01:04 Last Admin: 07/29/16 00:38 Dose: 0.1 mg Clonidine HCl (Catapres) 0.2 mg PO BID [facility] Stop: 09/22/16 16:59 Last Admin: 07/29/16 08:51 Dose: 0.2 mg Docusate Sodium (Colace) 100 mg PO Q12H PRN PRN Reason: Constipation Stop: 09/21/16 22:09 Donepezil HCl (Aricept) 5 mg PO HS [facility] Stop: 09/23/16 20:59 Last Admin: 07/28/16 21:34 Dose: 5 mg Escitalopram Oxalate (Lexapro) 10 mg PO HS [facility] PRN Reason: Protocol Stop: 09/22/16 20:59 Last Admin: 07/28/16 21:34 Dose: 10 mg Sodium Chloride (Nacl 0.45%) 1,000 mls @ 60 mls/hr IV .[id number] [facility] Stop: 09/21/16 19:57 Last Admin: 07/29/16 08:53 Dose: 60 mls/hr Levothyroxine Sodium (Synthroid) 0.125 mg PO QDAC [facility] Stop: 09/24/16 07:29 Last Admin: 07/29/16 06:43 Dose: 0.125 mg Megestrol Acetate (Megace) 400 mg PO BID [facility] Stop: 09/22/16 08:59 Last Admin: 07/29/16 08:50 Dose: 400 mg Miscellaneous (Nebivolol Hcl [Bystolic]) 10 mg PO DAILY [facility] Stop: 09/22/16 08:59 Mupirocin (Bactroban Oint) 1 appl NS BID [facility] Stop: 07/30/16 09:01 Last Admin: 07/28/16 17:14 Dose: 1 appl Pantoprazole Sodium (Protonix) 40 mg PO DAILY [facility] Stop: 09/22/16 08:59 Last Admin: 07/29/16 08:51 Dose: 40 mg Promethazine HCl/Dextromethorphan (Phenergan Dm 6.25/15mg-5 Ml) 5 ml PO TID PRN PRN Reason: Cough Stop: 09/21/16 22:09 General: no acute distress, well developed, well nourished HEENT: atraumatic, normocephalic, PERRLA, EOMI, moist mucous membrane Neck: supple, no thyromegaly Cardiovascular: S1S2, regular Lungs: clear to auscultation bilaterally, clear to percussion Abdomen: soft, no tender, no distended Extremities: no cyanosis, no clubbing, no edema Neurological: awake, alert, oriented Skin: intact Infectious Disease Assmt/Plan - Problem List Patient Problems: All Active Problems GENERALIZED WEAKNESS (Acute) dehydartion (Acute) gait disorder (Acute) hypothyroidm (Acute) osteoporosis (Acute) prerenal azotemiaa improving (Acute) - Assessment Assessment: Impression: 1. UTI - E coli. 2. JORDI 3. HTN. Recommendations: Continue cipro po bid for total 7 days. Nutritional Asmnt/Malnutr-PDOC - Dietary Evaluation Malnutrition Findings (Please click <Entered> for more info): Nutritional Asmnt/Malnutrition Start: 07/24/16 17: 36 Text: Status: Complete Freq: Document 07/24/16 17:36 GSUN (Rec: 07/24/16 17:51 GSUN [email or web address]) Nutritional Asmnt/Malnutrition Patient General Information Nutritional Screening High Risk Screening Diagnosis ER: infectious encephalopathy, acute on chronic CKD, dehydration, FTT Pertinent Medical Hx/Surgical Hx ER: HTN, dyslipidemia, throid disorder, dementia, CKD Subjective Information 80 year old female from home. Pt was asleep during visit, spoke to son at bedside. Son reported pt fell around 1 month ago, was admitted to rehab and ordered appetite stimulant and was eating well with possible weight gain, pt was then discharged home with caregiver who comes by. Son began noticing recent decline in PO intake, barely ate breakfast and lunch. Son stated pt usually drinks Ensure at home. Son denied difficulties chewing/ swallowing. Current Diet Order/ Nutrition Support Low sodium 2gm Pertinent Medications Maalox, Lipitor, Catapres, Colace, Synthroid, Megace, Protonix Pertinent Labs 07/23: BUN 40H, creatinine 1.8H 07/24: BUN 33H (improving), creaitnine 1.5H (improving), potassium 4.1 Nutritional Hx/Data Height 1.6 m Height (Calculated Centimeters) 160.0 Current Weight (lbs) 68.13 kg Weight (Calculated Kilograms) 68.1 Weight (Calculated Grams) 82802.6 Usual body Weight (lbs) 130 [place] Body Weight 120 Weight Status Overweight GI Symptoms Food Allergies No Cultural/Ethnic/Confucianist Belief Unknown. Usual diet at home [place]. Skin Integrity/Comment: Non-pitting edema bilateral legs and right arm Current %PO Poor (25-49%) Estimated Nutritional Goals Calories/Kcals/Kg UBW 130lb/59kg, 30-35kcal/kg Kcals Calculated 1770-2065kcal Protein g/kg: UBW 1.2-1.4g/kg Protein Calculated 71-83g Fluid: ml 1770-2065ml (1ml/kcal) Nutritional Problem 1. Problem Problem Increased protein and kcal needs related to Etiology hypermetabolic state, recent decline in PO intake aeb Signs/Symptoms: ER: sepsis and FFT, son report PO intake <25% Intervention/Recommendation Comments 1. Continue with low sodium diet. Current PO intake is not meeting nutritional needs. 2. Recommend Novasource Renal BID for additional kcal and protein to better meet nutritional needs. Expected Outcomes/Goals Expected Outcomes/Goals 1. PO intake to meet 100% of estimated nutritional needs.
[2016-07-30 06:09] LABS: FOLIC ACID 14.2 ng/mL (>3.0)
--- NOTE | 2016-07-30 23:57 | Consultation ---
The patient of Dr. Chan. HISTORY AND PHYSICAL: This is an 80-year-old female patient who was recently admitted for generalized weakness. The patient was found to have CKD stage 4. During hospitalization, the patient developed chest pain and hence, Cardiology consult was requested. PAST MEDICAL HISTORY: Hypothyroid, hypertension, hyperlipidemia, dementia, iron deficiency anemia, congestive heart failure, diastolic dysfunction, major depression, CKD stage 4. FAMILY HISTORY: Unremarkable. SOCIAL HISTORY: No history of smoking, alcohol abuse. ALLERGIES: None. PHYSICAL EXAMINATION: VITAL SIGNS: Blood pressure 150/80, pulse 80, respirations 20. HEAD: Normocephalic. No lumps or bumps. EYES: Pupils equal, reactive to light. Fundi show AV nicking, sclerae white, conjunctivae pink. NECK: Carotid 2+. Normal upstroke. JVD flat. Thyroid not palpable. Lymph nodes not palpable. CHEST: Shows increased AP diameter. No kyphosis or scoliosis. LUNGS: Bilateral bronchovesicular breath sounds. HEART: PMI, fifth intercostal space with lateral to midclavicular line. S1, S2. No S3, S4. Systolic murmur, grade 2/6, lower left sternal border without radiation. ABDOMEN: Soft. Liver, spleen not palpable. No organomegaly. Bowel sounds are active. NEUROLOGIC: No focal neurological deficit. EXTREMITIES: Peripheral pulses 2+. No pedal edema. CLINICAL IMPRESSION: Atypical chest pain, hypothyroid, hypertension, hyperlipidemia, dementia, iron deficiency anemia, congestive heart failure, diastolic dysfunction, stable, major depression, chronic kidney disease stage 4. PLAN: The patient's troponin level unremarkable. The patient's chest pain is unlikely, coronary artery disease. The patient can be discharged. JOB# [id number]
--- NOTE | 2016-08-12 21:48 | Discharge Summary ---
COURSE OF HOSPITAL TREATMENT: The patient is a resident from a longterm facility who was brought into the Emergency Room due to weakness and failure to thrive. From the Emergency Room, the patient ____ was found to have UTI causing the encephalopathy. The patient was admitted to the Med/Surg floor where the patient received a course of IV antibiotics. The patient was also consulted with Nephrology due to worsening kidney functions, on which the patient was also diagnosed with chronic kidney disease. Afterwards when the patient was stabilized, the patient was discharged back to [facility]. DISCHARGE DIAGNOSES: 1. Urinary tract infection. 2. Chronic kidney disease. 3. Dehydration. 4. Dementia. 5. Hypertension. 6. Hypothyroidism. 7. Hyperlipidemia. 8. Anemia. 9. Gastroesophageal reflux disease. 10. Depression. DISCHARGE INSTRUCTIONS: The patient was discharged back to [facility] and will be followed by the [facility] doctor. JOB# [id number]
== END 2016-07-29 17:45 | DRG 871 ==
LOC: ER 17:00 → TELE 19:25
PROVIDERS: ADMIT Internal Medicine; ATTEND Internal Medicine
DX: A41.9 Sepsis, unspecified organism (principal); G93.40 Encephalopathy, unspecified; N17.9 Acute kidney failure, unspecified; N18.4 Chronic kidney disease, stage 4 (severe); E44.0 Moderate protein-calorie malnutrition; I13.0 Hypertensive heart and chronic kidney disease with heart failure and stage 1 through stage 4 chronic kidney disease, or unspecified chronic kidney disease; I50.30 Unspecified diastolic (congestive) heart failure; N39.0 Urinary tract infection, site not specified; R62.7 Adult failure to thrive; E78.5 Hyperlipidemia, unspecified; E03.9 Hypothyroidism, unspecified; B96.89 Other specified bacterial agents as the cause of diseases classified elsewhere; D63.1 Anemia in chronic kidney disease; F02.80 Dementia in other diseases classified elsewhere, unspecified severity, without behavioral disturbance, psychotic disturbance, mood disturbance, and anxiety; G30.9 Alzheimer's disease, unspecified; K21.9 Gastro-esophageal reflux disease without esophagitis; F32.9 Major depressive disorder, single episode, unspecified; B96.20 Unspecified Escherichia coli [E. coli] as the cause of diseases classified elsewhere; R07.89 Other chest pain; D50.9 Iron deficiency anemia, unspecified; Z68.26 Body mass index [BMI] 26.0-26.9, adult
CPT/HCPCS: 36415-UA; 70450-TC; 71010-TC; 76770-TC; 80048-TC; 80053-TC; 80061-TC; 81001-TC; 81015-TC; 82043-90; 82085-90; 82140-TC; 82550-TC; 82570-TC; 82607-90; 82746-90; 83605; 83735-TC; 83880-TC; 84100-TC; 84300-TC; 84443-TC; 84484-TC; 84550-TC; 85025-TC; 85610-TC; 85730-TC; 86141-TC; 87086-90; 93005; 93880-TC; J0696; J7030; Z7610

== ENCOUNTER 2016-07-31 15:21 | Inpatient (IN) | payer MEDICARE, MEDICAID ==
[2016-07-31 15:33] VITALS: BP 199/108
--- NOTE | 2016-07-31 15:54 | ED Physician Chart ---
Chief Complaint/HPI - Patient Information Date Seen:: 07/31/16 Time Seen:: 15:51 Chief Complaint:: face ctn History of Present Illness:: pt was at NH was walking w her walker and lost balance and fell. hit rt side face. has a lrg edema and hematoma at rt face around rt eye. it is hard to get yey to open due to so much edema and pt says she can see from the eye but can barely count fingers at 1 ft. she complains of pain when I try to open eyelids more for better exam. no other pains in body. no neck pain. no back p. no cp. no abd p. no hip pain. Allergies:: Allergies Allergy/AdvReac Type Severity Reaction Status Date / Time No Known Allergies Allergy Verified 07/23/16 18:06 Vitals:: Vital Signs - 8 hr 07/31/16 07/31/16 15:33 15:38 Temp 99.8 F HR 79 RR 18 BP 199/108 199/108 O2 Sat % 96 Historian:: Patient Review of Systems - Review of Systems General/Constitutional: No fever, No chills, No weight loss, No weakness, No diaphoresis, No edema, No loss of appetite Skin: No skin lesions, No rash, No bruising Head: Headache, No light-headedness Eyes: Acuity change (??), No loss of vision, No pain, No diplopia ENT: No earache, No nasal drainage, No sore throat, No tinnitus Neck: No neck pain, No swelling, No thyromegaly, No stiffness, No mass noted Cardio Vascular: No chest pain, No palpitations, No PND, No orthopnea, No edema Pulmonary: No SOB, No cough, No sputum, No wheezing GI: No nausea, No vomiting, No diarrhea, No pain, No melena, No hematochezia, No constipation, No hematemesis G/U: No dysuria, No frequency, No hematuria Musculoskeletal: No bone or joint pain, No back pain, No muscle pain Endocrine: No polyuria, No polydipsia Psychiatric: No prior psych history, No depression, No anxiety, No suicidal ideation Hematopoietic: No bruising, No lymphadenopathy Allergic/Immuno: No urticaria, No angioedema Neurological: No syncope, No focal symptoms, No weakness, No paresthesia, No headache, No seizure, No dizziness, No confusion, No vertigo Past Medical History - Past Medical History Past Medical History: Other (?) Social History: Care Facility Medication: Reviewed Family Medical History - Family Member Mother History Unknown: Yes Ethnicity: Physical Exam - Physical Examination General/Constitutional: Awake, Well-developed, well-nourished, Alert, No distress, GCS 15, Non-toxic appearing, Ambulatory Head: Atraumatic Eyes: Lids, conjuctiva normal, PERRL, EOMI Other Eyes comments:: lrg hemaotma at rt face..difficult to examine rt eye due to edema a.... Skin: Nl inspection, No rash, No skin lesions, No ecchymosis, Well hydrated, No lymphadenopathy ENMT: External ears, nose nl, Nasal exam nl, Lips, teeth, gums nl Neck: Nontender, Full ROM w/o pain, No JVD, No nuchal rigidity, No bruit, No mass, No stridor Respiratory: Nl effort/Exclusion, Clear to Auscultation, No Wheeze/Rhonchi/Rales Cardio Vascular: RRR, No murmur, gallop, rubs, NL S1 S2 GI: No tenderness/rebounding/guarding, No organomegaly, No hernia, Normal BS's, Nondistended, No mass/bruits, No McBurney tenderness : No CVA tenderness Extremities: No tenderness or effusion, Full ROM, normal strength in all extremities, No edema, Normal digits & nails Neuro/Psych: Alert/oriented, DTR's symmetric, Normal sensory exam, Normal motor strength, Judgement/insight normal, Mood normal, Normal gait, No focal deficits Misc: normal gait, Normal back, No paraspinal tenderness Labs/Radiology/EKG Results - Lab Results Results: Laboratory Tests 07/31/16 07/31/16 07/31/16 16:00 16:00 16:00 WBC 10.3 D RBC 3.78 L Hgb 12.1 Hct 35.3 D MCV 93.3 MCH 32.0 H MCHC Differential 34.3 RDW 13.2 Plt Count 222 MPV 7.3 Neutrophils % 86.5 H Lymphocytes % 6.1 L Monocytes % 6.2 Eosinophils % 0.5 Basophils % 0.7 PT 11.6 H INR 1.11 PTT (Actin FS) 24.3 L Sodium 138 Potassium 3.5 Chloride 107 Carbon Dioxide 22.9 Anion Gap 11.6 BUN 36 H Creatinine 1.7 H Est GFR ( Amer) TNP Est GFR (Non-Af Amer) TNP BUN/Creatinine Ratio 21.2 Glucose 127 H Calcium 9.3 Total Bilirubin 0.5 AST 18 ALT 17 Alkaline Phosphatase 48 Troponin I Total Protein 6.7 Albumin 3.8 Globulin 2.9 Albumin/Globulin Ratio 1.3 Blood Type Antibody Screen 07/31/16 07/31/16 16:00 16:00 WBC RBC Hgb Hct MCV MCH MCHC Differential RDW Plt Count MPV Neutrophils % Lymphocytes % Monocytes % Eosinophils % Basophils % PT INR PTT (Actin FS) Sodium Potassium Chloride Carbon Dioxide Anion Gap BUN Creatinine Est GFR ( Amer) Est GFR (Non-Af Amer) BUN/Creatinine Ratio Glucose Calcium Total Bilirubin AST ALT Alkaline Phosphatase Troponin I 0.06 H Total Protein Albumin Globulin Albumin/Globulin Ratio Blood Type A POSITIVE Antibody Screen NEGATIVE - Radiology Results Results: ct head no bleed. ct orbits - no globe injury, no facial fx - EKG Interpretations EKG Time:: 15:00 Rhythm: nsr [place]: 10 Rate: 75 Comments:: wnl Assessment - Assessment Critical Care Time: 80 Excludes all billable procedures: Yes This condition life threatening/high prob of deterioration: Yes Assessment/Comments:: catapres 0.2 + toprol 50.. ED Septic Shock - . Is Septic Shock (SBP<90, OR Lactate>4 mmol\L) present?: No - <6hrs of presentation: Vital Signs: Vital Signs - 8 hr 07/31/16 07/31/16 15:33 15:38 Temp 99.8 F HR 79 RR 18 BP 199/108 199/108 O2 Sat % 96 Reassessment (Disposition) - Reassessment Reassessment:: pt given catapres 0.2mg po for sev htn. pt given toprol 50 po for continued htn. case dw dr huitron at 8;20pm ...will admit Reassessment Condition:: Improved - Diagnosis Diagnosis:: 1 s/p fall massive rt face edema contusion 2 severe HTN ...uncontrolled 3 elevated troponin - Patient Disposition Admitted to:: Telemetry Condition at Disposition:: Improved
[2016-07-31 16:10] LABS: % BASOPHILS 0.7 % (0.0-2.0); % EOSINOPHILS 0.5 % (0.0-5.0); % LYMPHOCYTES 6.1 % (20.0-50.0); % MONOCYTES 6.2 % (2.0-10.0); % NEUTROPHILS 86.5 % (40.0-80.0); HEMOGLOBIN 12.1 gm/dL (11.7-16.1); MEAN CELL VOLUME 93.3 fl (81-100); MEAN CORPUSCULAR HGB CONC 34.3 pg (28.0-36.0); MEAN PLATELET VOLUME 7.3 fl; NEUTROPHILE ABSOLUTE 8.9 Th/cmm (1.8-8.0); PLATELET COUNT 222 Th/cmm (150-400); RED BLOOD COUNT 3.78 Mil/cmm (3.80-5.20); RED CELL DISTRIBUTION WIDTH 13.2 % (11.5-20.0)
[2016-07-31 16:24] LABS: HEMATOCRIT 35.3 % (35.0-45.0); INR 1.11 (0.5-1.4); PROTHROMBIN TIME (TEST) 11.6 SECONDS (9.5-11.5); WHITE BLOOD COUNT 10.3 Th/cmm (4.8-10.8)
[2016-07-31 16:53] LABS: SODIUM SERUM 138 mEq/L (136-145)
[2016-07-31 16:54] LABS: ALB/GLOB RATIO 1.3 (1.0-1.8); ANION GAP 11.6 (7.0-16.0); BILIRUBIN,TOTAL 0.5 mg/dL (0.3-1.0); BUN - UREA NITROGEN 36 mg/dL (7-25); BUN/CREATININE RATIO 21.2; CALCIUM SERUM 9.3 mg/dL (8.6-10.3); CARBON DIOXIDE 22.9 mEq/L (21.0-31.0); CHLORIDE 107 mEq/L (98-107); CREATININE - SERUM 1.7 mg/dL (0.6-1.2); GLUCOSE 127 mg/dL (70-105); POTASSIUM SERUM 3.5 mEq/L (3.5-5.1); SGOT 18 U/L (13-39)
[2016-07-31 16:55] LABS: ALKALINE PHOSPHATASE 48 U/L (34-104); SGPT/ALT 17 U/L (7-52)
[2016-07-31] MEDS ORDERED: Morphine Sulfate 2 mg/mL 1mL Syr IVP PRN (22:25)
[2016-07-31] MEDS ORDERED: Promethazine DM 6.25/15mg-5mL 5 ML SYR PO PRN (22:27)
[2016-07-31] MEDS ORDERED: Maalox 30 mL Cup PO PRN (22:54)
--- NOTE | 2016-08-01 00:15 | Admit Criteria Form ---
Admit Criteria Forms - Admit Criteria Diagnosis: HYPERTENSION Clinical Indications for Admission to Inpatient Care ( Place "X" for any and all applicable criteria): Admission is indicated for ANY ONE of the following(1)(2)(3)(4): [ ]I. Hypertensive emergency, with evidence of acute and progressing target organ disease as indicated by ANY ONE of the following: [ ]a) Hypertensive encephalopathy (eg, confusion, altered mental status) [ ]b) Cerebral infarction [ ]c) Intracranial hemorrhage [ ]d) Myocardial ischemia or infarction [ ]e) Pulmonary edema [ ]f) Aortic dissection [ ]g) Seizure [ ]h) Acute renal insufficiency [ ]i) Papilledema [ ]j) Microangiopathic hemolytic anemia [ ]II. Adrenergic crisis (eg, severe hypertension due to pheochromocytoma crisis, cocaine or amphetamine intoxication, or clonidine withdrawal) [X]III. Severe hypertension (SBP greater than 180 mmHg or DBP greater than 110 mmHg or greater than the 95th percentile for age, gender, and height in pediatric patients) that cannot be controlled (eg, to SBP less than 160 mmHg and DBP less than 100 mmHg in adults) by treatment with oral medication in emergency department or observation care Extended stay beyond goal length of stay may be needed for(11)(12)(13): [ ]a) Persistent hypertensive encephalopathy [ ]b) Continuation of pulmonary edema [ ]c) Recurring or persistent severe hypertension [ ]d) Target organ damage (eg, angina, stroke, aortic dissection) [ ]e) Associated renal insufficiency The original [employer] content created by [employer] has been revised. The portions of the content which have been revised are identified through the use of italic text or in bold, and [facility] has neither reviewed nor approved the modified material. All other unmodified content is copyright [employer] [facility]. Please see references footnoted in the original [facility] [facility] edition 2016 Admit Criteria Met?: Yes
[2016-08-01] MEDS: Multivitamin w/ Minerals Tab PO SCH (08:28)
[2016-08-01] MEDS: Levothyroxine 0.075 Mg Tab PO SCH (08:28)
[2016-08-01] MEDS: Pantoprazole 40 mg EC Tab PO SCH (08:28)
[2016-08-01] MEDS ORDERED: NEBIVOLOL HCL 10 MG PO SCH (09:00)
--- NOTE | 2016-08-01 10:34 | Diagnostic Imaging Report ---
CT scan of the brain without intravenous contrast HISTORY: Headache, trauma Total DLP equals 560 CTDI equals 30.0 Axial sections were obtained from the base of the skull to the vertex. Exam is compared with the prior study of July 27, 2016. There is marked enlargement of ventricular system along with enlargement of cerebral sulci and subarachnoid cisterns reflecting relatively severe generalized atrophy. Extensive periventricular and supratentorial white matter changes noted without mass effect. The findings are consistent with probable chronic small vessel ischemic disease. No acute intracerebral hemorrhage. No mass effect or shift of midline structures. No extra-axial masses or abnormal fluid collections. Atherosclerotic calcification noted in the region of the vertebral and basilar arteries at the base of the skull. There is marked soft tissue swelling noted in the right. Orbital region. IMPRESSION: 1. Marked soft tissue swelling within the right. Orbital regions 2. Severe generalized cerebral atrophy and extensive supratentorial white matter changes probably associated with chronic small vessel ischemic disease. No significant change from a prior study of July 27, 2016. 3. Atherosclerotic vascular changes
--- NOTE | 2016-08-01 11:25 | Diagnostic Imaging Report ---
CT scan of the orbits HISTORY: Pain, trauma Total DLP equals 184 CTDI equals 18.1 Axial sections were obtained through the orbits. Additional coronal and sagittal reformatted images are provided. The exam demonstrates marked soft tissue swelling about the right. Orbital region. There is retention of normal bony margins about the orbits. No fractures are seen. There is a symmetrical appearance of the optic nerves and extraocular muscles. The zygomatic arches are intact. Pterygoid plates are intact. Normal aeration of the paranasal sinuses. IMPRESSION: 1. Soft tissue swelling about the right periorbital region. 2. No acute bony abnormalities
--- NOTE | 2016-08-01 12:25 | History & Physical ---
HISTORY OF PRESENT ILLNESS: This patient is very well known to me. The patient is known to have history of multiple problems including history of severe weakness, gait disorder, osteoporosis, osteoarthritis, anemia, history of GI bleeding in the past, was recently admitted for urinary tract infection ____ and septic shock and was treated while here and the patient was sent back to a longterm, apparently the patient was walking with a walker, lost her balance, fell down and hit her on the right side of the face, developed huge swelling on her right face, and was transferred to [facility], was seen, had a CAT scan done and was negative except for the soft tissue swelling and the patient was admitted for history of acute syncope, history of fall, right facial swelling and trauma. PAST MEDICAL HISTORY: As enumerated above. PAST SURGICAL HISTORY: As enumerated above. FAMILY HISTORY: Unremarkable. PHYSICAL EXAMINATION: GENERAL: The patient is alert, oriented, elderly female. HEENT: The patient has a large swelling on the right face and eyes closed. Head examination is normal ____ otherwise normal. NECK: Supple, nontender. LUNGS: Clear. CARDIOVASCULAR SYSTEM: S1, S2 heard. ABDOMEN: Soft. Bowel sounds are heard. CENTRAL NERVOUS SYSTEM: Grossly normal. DIAGNOSES: 1. History of fall. 2. Right facial trauma. 3. Head injury. 4. Rule out reasons for syncope. 5. History of dementia. 6. History of osteoporosis. 7. History of osteoarthritis. 8. History of GI bleeding. 9. History of anemia. 10. History of gait disorder. PLAN: The patient is being admitted and I will go ahead. Also, the patient had a history of uncontrolled hypertension, elevated troponin, we will have double end tenoner operator, Dr. Murrell see the patient, and I will also have neurologist have Dr. Correa see the patient and I will follow the patient. JOB# [id number]
--- NOTE | 2016-08-01 20:46 | Consultation ---
The patient of Dr. Chan. HISTORY OF PRESENT ILLNESS: This is an 80-year-old female patient who was recently discharged from . The patient was at [facility]. The patient was walking with the walker. Following this, the patient had a fall and the patient had ecchymosis of the right orbital area. The patient was brought in to the Emergency Room. The patient had a CT scan which was negative for any subdural hematoma, but did have soft tissue swelling. PAST MEDICAL HISTORY: Syncope, osteoporosis, iron deficiency anemia, hypothyroid, hypertension, dementia, CKD stage III, and major depression. FAMILY HISTORY: Unremarkable. SOCIAL HISTORY: No history of smoking or alcohol abuse. ALLERGIES: No known allergies. PHYSICAL EXAMINATION: VITAL SIGNS: Blood pressure 130/80, pulse 70, and respirations 20. HEAD: Normocephalic. The patient has right orbital bruise with swelling. NECK: JVD flat. Thyroid not palpable. Lymph nodes not palpable. CHEST: Shows increased AP diameter. No kyphosis or scoliosis. LUNGS: Bilateral bronchovesicular breath sounds. HEART: PMI fifth intercostal space with lateral to midclavicular line. S1, S2. No S3, S4. Systolic murmur, grade 2/6, lower left sternal border without radiation. ABDOMEN: Soft. Liver and spleen not palpable. No organomegaly. Bowel sounds active. NEUROLOGIC: No focal neurological deficit. EXTREMITIES: Peripheral pulses 2+. No pedal edema. The patient had previously carotid Duplex study and echocardiogram, which was unremarkable. CLINICAL IMPRESSION: 1. Syncope. 2. Contusion of the right orbit from fall. 3. Osteoporosis. 4. Iron deficiency anemia. 5. Hypothyroid. 6. Hypertension. 7. Dementia. 8. Major depression. 9. Chronic kidney disease, stage III. PLAN: The patient to have physical therapy. Control the blood pressure and monitor the patient for any arrhythmias. [facility]# [id number]
[2016-08-01] MEDS: Atorvastatin Calcium 10 MG TAB PO SCH (20:48)
[2016-08-01] MEDS ORDERED: Non-Formulary Item 1 EA (Donepezil Hcl [Donepezil Hcl Odt] 5 MG) PO SCH (21:00)
[2016-08-02] MEDS: Levothyroxine 0.075 Mg Tab PO SCH (08:59)
[2016-08-02] MEDS: Pantoprazole 40 mg EC Tab PO SCH (08:59)
[2016-08-02] MEDS: Multivitamin w/ Minerals Tab PO SCH (08:59)
--- NOTE | 2016-08-02 15:14 | General Progress Note ---
Objective - Results Result Diagrams: 07/31/16 16:00 07/31/16 16:00 Recent Labs: Laboratory Last Values WBC 10.3 Th/cmm (4.8-10.8) D 07/31/16 16:00 RBC 3.78 Mil/cmm (3.80-5.20) L 07/31/16 16:00 Hgb 12.1 gm/dL (11.7-16.1) 07/31/16 16:00 Hct 35.3 % (35.0-45.0) D 07/31/16 16:00 MCV 93.3 fl (81-100) 07/31/16 16:00 MCH 32.0 pg (27.0-31.0) H 07/31/16 16:00 MCHC Differential 34.3 pg (28.0-36.0) 07/31/16 16:00 RDW 13.2 % (11.5-20.0) 07/31/16 16:00 Plt Count 222 Th/cmm (150-400) 07/31/16 16:00 MPV 7.3 fl 07/31/16 16:00 Neutrophils % 86.5 % (40.0-80.0) H 07/31/16 16:00 Lymphocytes % 6.1 % (20.0-50.0) L 07/31/16 16:00 Monocytes % 6.2 % (2.0-10.0) 07/31/16 16:00 Eosinophils % 0.5 % (0.0-5.0) 07/31/16 16:00 Basophils % 0.7 % (0.0-2.0) 07/31/16 16:00 PT 11.6 SECONDS (9.5-11.5) H 07/31/16 16:00 INR 1.11 (0.5-1.4) 07/31/16 16:00 PTT (Actin FS) 24.3 SECONDS (26.0-38.0) L 07/31/16 16:00 Sodium 138 mEq/L (136-145) 07/31/16 16:00 Potassium 3.5 mEq/L (3.5-5.1) 07/31/16 16:00 Chloride 107 mEq/L (98-107) 07/31/16 16:00 Carbon Dioxide 22.9 mEq/L (21.0-31.0) 07/31/16 16:00 Anion Gap 11.6 (7.0-16.0) 07/31/16 16:00 BUN 36 mg/dL (7-25) H 07/31/16 16:00 Creatinine 1.7 mg/dL (0.6-1.2) H 07/31/16 16:00 Est GFR ( Amer) TNP 07/31/16 16:00 Est GFR (Non-Af Amer) TNP 07/31/16 16:00 BUN/Creatinine Ratio 21.2 07/31/16 16:00 Glucose 127 mg/dL (70-105) H 07/31/16 16:00 Calcium 9.3 mg/dL (8.6-10.3) 07/31/16 16:00 Total Bilirubin 0.5 mg/dL (0.3-1.0) 07/31/16 16:00 AST 18 U/L (13-39) 07/31/16 16:00 ALT 17 U/L (7-52) 07/31/16 16:00 Alkaline Phosphatase 48 U/L (34-104) 07/31/16 16:00 Troponin I 0.06 ng/mL (0.01-0.05) H 07/31/16 16:00 Total Protein 6.7 gm/dL (6.0-8.3) 07/31/16 16:00 Albumin 3.8 gm/dL (3.7-5.3) 07/31/16 16:00 Globulin 2.9 gm/dL 07/31/16 16:00 Albumin/Globulin Ratio 1.3 (1.0-1.8) 07/31/16 16:00 Blood Type A POSITIVE 07/31/16 16:00 Antibody Screen NEGATIVE 07/31/16 16:00 - Physical Exam Vitals and I&O: Vital Signs Temp 99.1 F 08/02/16 07:48 Pulse 78 08/02/16 08:59 Resp 19 08/02/16 12:00 BP 177/66 08/02/16 08:59 Pulse Ox 98 08/02/16 07:48 Intake & Output 08/01/16 08/02/16 08/02/16 18:59 06:59 18:59 Intake Total 360 Balance 360 Intake: Oral 360 Other: # Voids 3 Stool Characteristics Soft Active Medications: Current Medications Acetaminophen (Tylenol) 650 mg PO Q4HR PRN PRN Reason: PAIN Stop: 09/29/16 22:26 Al Hydrox/Mg Hydrox/Simethicone (Maalox) 30 ml PO Q6H PRN PRN Reason: SUPPLEMENT Stop: 09/29/16 22:53 Atorvastatin Calcium (Lipitor) 10 mg PO HS BRANDY PRN Reason: Protocol Stop: 09/30/16 20:59 Last Admin: 08/01/16 20:48 Dose: 10 mg Clonidine HCl (Catapres) 0.1 mg PO Q6H PRN PRN Reason: HTN Stop: 09/29/16 22:26 Docusate Sodium (Colace) 100 mg PO Q12H PRN PRN Reason: Constipation Stop: 09/29/16 22:26 Donepezil HCl (Aricept) 5 mg PO HS [facility] Stop: 09/30/16 20:59 Last Admin: 08/01/16 20:48 Dose: 5 mg Enalaprilat (Vasotec) 1.25 mg IVP Q6HR PRN PRN Reason: SBP> 160 Stop: 09/30/16 00:00 Escitalopram Oxalate (Lexapro) 10 mg PO HS BRANDY PRN Reason: Protocol Stop: 09/30/16 20:59 Last Admin: 08/01/16 20:48 Dose: 10 mg Levothyroxine Sodium (Synthroid) 0.075 mg PO DAILY [facility] Stop: 09/30/16 08:59 Last Admin: 08/02/16 08:59 Dose: 0.075 mg Megestrol Acetate (Megace) 400 mg PO BID BRANDY Stop: 09/30/16 08:59 Last Admin: 08/02/16 09:00 Dose: 400 mg Metoprolol Tartrate (Lopressor) 25 mg PO DAILY [facility] Stop: 09/30/16 13:29 Last Admin: 08/02/16 08:59 Dose: 25 mg Morphine Sulfate (Morphine) 1 mg IVP Q6HR PRN PRN Reason: Pain (Severe) Stop: 09/29/16 22:24 Last Admin: 08/02/16 09:30 Dose: 1 mg Pantoprazole Sodium (Protonix) 40 mg PO DAILY [facility] Stop: 09/30/16 08:59 Last Admin: 08/02/16 08:59 Dose: 40 mg Promethazine HCl/Dextromethorphan (Phenergan Dm 6.25/15mg-5 Ml) 5 ml PO TID PRN PRN Reason: Cough Stop: 09/29/16 22:26 Assessment/Plan - Problem List Patient Problems: All Active Problems GENERALIZED WEAKNESS (Acute) dehydartion (Acute) gait disorder (Acute) hypothyroidm (Acute) osteoporosis (Acute) prerenal azotemiaa improving (Acute)
[2016-08-02] MEDS: Atorvastatin Calcium 10 MG TAB PO SCH (21:31)
--- NOTE | 2016-08-03 08:50 | General Progress Note ---
Subjective - Review of Systems Subjective: no distress Objective - Results Result Diagrams: 07/31/16 16:00 07/31/16 16:00 Recent Labs: Laboratory Last Values WBC 10.3 Th/cmm (4.8-10.8) D 07/31/16 16:00 RBC 3.78 Mil/cmm (3.80-5.20) L 07/31/16 16:00 Hgb 12.1 gm/dL (11.7-16.1) 07/31/16 16:00 Hct 35.3 % (35.0-45.0) D 07/31/16 16:00 MCV 93.3 fl (81-100) 07/31/16 16:00 MCH 32.0 pg (27.0-31.0) H 07/31/16 16:00 MCHC Differential 34.3 pg (28.0-36.0) 07/31/16 16:00 RDW 13.2 % (11.5-20.0) 07/31/16 16:00 Plt Count 222 Th/cmm (150-400) 07/31/16 16:00 MPV 7.3 fl 07/31/16 16:00 Neutrophils % 86.5 % (40.0-80.0) H 07/31/16 16:00 Lymphocytes % 6.1 % (20.0-50.0) L 07/31/16 16:00 Monocytes % 6.2 % (2.0-10.0) 07/31/16 16:00 Eosinophils % 0.5 % (0.0-5.0) 07/31/16 16:00 Basophils % 0.7 % (0.0-2.0) 07/31/16 16:00 PT 11.6 SECONDS (9.5-11.5) H 07/31/16 16:00 INR 1.11 (0.5-1.4) 07/31/16 16:00 PTT (Actin FS) 24.3 SECONDS (26.0-38.0) L 07/31/16 16:00 Sodium 138 mEq/L (136-145) 07/31/16 16:00 Potassium 3.5 mEq/L (3.5-5.1) 07/31/16 16:00 Chloride 107 mEq/L (98-107) 07/31/16 16:00 Carbon Dioxide 22.9 mEq/L (21.0-31.0) 07/31/16 16:00 Anion Gap 11.6 (7.0-16.0) 07/31/16 16:00 BUN 36 mg/dL (7-25) H 07/31/16 16:00 Creatinine 1.7 mg/dL (0.6-1.2) H 07/31/16 16:00 Est GFR ( Amer) TNP 07/31/16 16:00 Est GFR (Non-Af Amer) TNP 07/31/16 16:00 BUN/Creatinine Ratio 21.2 07/31/16 16:00 Glucose 127 mg/dL (70-105) H 07/31/16 16:00 Calcium 9.3 mg/dL (8.6-10.3) 07/31/16 16:00 Total Bilirubin 0.5 mg/dL (0.3-1.0) 07/31/16 16:00 AST 18 U/L (13-39) 07/31/16 16:00 ALT 17 U/L (7-52) 07/31/16 16:00 Alkaline Phosphatase 48 U/L (34-104) 07/31/16 16:00 Troponin I 0.06 ng/mL (0.01-0.05) H 08/02/16 15:00 Total Protein 6.7 gm/dL (6.0-8.3) 07/31/16 16:00 Albumin 3.8 gm/dL (3.7-5.3) 07/31/16 16:00 Globulin 2.9 gm/dL 07/31/16 16:00 Albumin/Globulin Ratio 1.3 (1.0-1.8) 07/31/16 16:00 Blood Type A POSITIVE 07/31/16 16:00 Antibody Screen NEGATIVE 07/31/16 16:00 - Physical Exam Vitals and I&O: Vital Signs Temp 98.2 F 08/03/16 08:11 Pulse 82 08/03/16 08:11 Resp 18 08/03/16 08:11 BP 159/92 08/03/16 08:11 Pulse Ox 99 08/03/16 08:11 Intake & Output 08/02/16 08/03/16 08/03/16 18:59 06:59 18:59 Intake Total 250 Balance 250 Intake: Oral 250 Other: # Voids 3 Active Medications: Current Medications Acetaminophen (Tylenol) 650 mg PO Q4HR PRN PRN Reason: PAIN Stop: 09/29/16 22:26 Al Hydrox/Mg Hydrox/Simethicone (Maalox) 30 ml PO Q6H PRN PRN Reason: SUPPLEMENT Stop: 09/29/16 22:53 Atorvastatin Calcium (Lipitor) 10 mg PO HS BRANDY PRN Reason: Protocol Stop: 09/30/16 20:59 Last Admin: 08/02/16 21:31 Dose: 10 mg Clonidine HCl (Catapres) 0.1 mg PO Q6H PRN PRN Reason: HTN Stop: 09/29/16 22:26 Last Admin: 08/03/16 04:57 Dose: 0.1 mg Docusate Sodium (Colace) 100 mg PO Q12H PRN PRN Reason: Constipation Stop: 09/29/16 22:26 Donepezil HCl (Aricept) 5 mg PO HS [facility] Stop: 09/30/16 20:59 Last Admin: 08/02/16 21:31 Dose: 5 mg Enalaprilat (Vasotec) 1.25 mg IVP Q6HR PRN PRN Reason: SBP> 160 Stop: 09/30/16 00:00 Escitalopram Oxalate (Lexapro) 10 mg PO HS [facility]ANDY PRN Reason: Protocol Stop: 09/30/16 20:59 Last Admin: 08/02/16 21:31 Dose: 10 mg Levothyroxine Sodium (Synthroid) 0.075 mg PO DAILY [facility] Stop: 09/30/16 08:59 Last Admin: 08/02/16 08:59 Dose: 0.075 mg Megestrol Acetate (Megace) 400 mg PO BID [facility] Stop: 09/30/16 08:59 Last Admin: 08/02/16 17:05 Dose: 400 mg Metoprolol Tartrate (Lopressor) 25 mg PO DAILY [facility] Stop: 09/30/16 13:29 Last Admin: 08/02/16 08:59 Dose: 25 mg Morphine Sulfate (Morphine) 1 mg IVP Q6HR PRN PRN Reason: Pain (Severe) Stop: 09/29/16 22:24 Last Admin: 08/02/16 09:30 Dose: 1 mg Pantoprazole Sodium (Protonix) 40 mg PO DAILY [facility] Stop: 09/30/16 08:59 Last Admin: 08/02/16 08:59 Dose: 40 mg Promethazine HCl/Dextromethorphan (Phenergan Dm 6.25/15mg-5 Ml) 5 ml PO TID PRN PRN Reason: Cough Stop: 09/29/16 22:26 General: No acute distress HEENT: Atraumatic Neck: Supple Cardiovascular: Regular rate Lungs: Clear to auscultation Assessment/Plan - Problem List Patient Problems: All Active Problems GENERALIZED WEAKNESS (Acute) dehydartion (Acute) gait disorder (Acute) hypothyroidm (Acute) osteoporosis (Acute) prerenal azotemiaa improving (Acute) - Plan Plan: monitor vitals/diet f/up consultants labs
[2016-08-03] MEDS: Pantoprazole 40 mg EC Tab PO SCH (09:08)
[2016-08-03] MEDS: Multivitamin w/ Minerals Tab PO SCH (09:08)
[2016-08-03] MEDS: Levothyroxine 0.075 Mg Tab PO SCH (09:09)
[2016-08-03] MEDS: Atorvastatin Calcium 10 MG TAB PO SCH (20:34)
[2016-08-04] MEDS: Pantoprazole 40 mg EC Tab PO SCH (09:58)
[2016-08-04] MEDS: Multivitamin w/ Minerals Tab PO SCH (09:58)
[2016-08-04] MEDS: Levothyroxine 0.075 Mg Tab PO SCH (09:59)
--- NOTE | 2016-08-04 11:23 | Diagnostic Imaging Report ---
Left knee 3 views Indication: Pain and swelling Comparison: none Findings: Advanced degenerative changes are seen with advanced narrowing of the medial knee compartment and moderate osteophytic spurring. Small knee effusion is noted. No evidence of an acute fracture or significant focal soft tissue swelling. Osteopenia is noted. Atherosclerosis noted. Impression: No evidence of an acute fracture. Advanced degenerative changes greatest within the medial knee compartment Small joint effusion. In the setting of trauma, if clinical symptoms persist and there is continued concern for an occult fracture, follow up exams in 5-7 days is suggested.
--- NOTE | 2016-08-04 11:25 | Diagnostic Imaging Report ---
Right knee 3 views Indication: Swelling and bruising Comparison: none Findings: AP and oblique views are limited due to positioning. Advanced narrowing of the medial and lateral knee compartments are noted. Advanced degenerative changes are noted with small effusion. There may have been old fracture of the mid fibular shaft, partially visualized. Otherwise no evidence of an acute fracture. Osteopenia is noted. Atherosclerosis is noted. There is mild infrapatellar soft tissue swelling. Impression: Mild infrapatellar soft tissue swelling. No evidence of an acute fracture Possible chronic fracture of the fibular shaft. If indicated dedicated right tib-fib views may be obtained for further assessment. Advanced degenerative changes and small knee effusion. In the setting of trauma, if clinical symptoms persist and there is continued concern for an occult fracture, follow up exams in 5-7 days is suggested.
--- NOTE | 2016-08-04 14:03 | General Progress Note ---
Subjective - Review of Systems Events since last encounter: improving Subjective: no distress Objective - Results Result Diagrams: 07/31/16 16:00 07/31/16 16:00 Recent Labs: Laboratory Last Values WBC 10.3 Th/cmm (4.8-10.8) D 07/31/16 16:00 RBC 3.78 Mil/cmm (3.80-5.20) L 07/31/16 16:00 Hgb 12.1 gm/dL (11.7-16.1) 07/31/16 16:00 Hct 35.3 % (35.0-45.0) D 07/31/16 16:00 MCV 93.3 fl (81-100) 07/31/16 16:00 MCH 32.0 pg (27.0-31.0) H 07/31/16 16:00 MCHC Differential 34.3 pg (28.0-36.0) 07/31/16 16:00 RDW 13.2 % (11.5-20.0) 07/31/16 16:00 Plt Count 222 Th/cmm (150-400) 07/31/16 16:00 MPV 7.3 fl 07/31/16 16:00 Neutrophils % 86.5 % (40.0-80.0) H 07/31/16 16:00 Lymphocytes % 6.1 % (20.0-50.0) L 07/31/16 16:00 Monocytes % 6.2 % (2.0-10.0) 07/31/16 16:00 Eosinophils % 0.5 % (0.0-5.0) 07/31/16 16:00 Basophils % 0.7 % (0.0-2.0) 07/31/16 16:00 PT 11.6 SECONDS (9.5-11.5) H 07/31/16 16:00 INR 1.11 (0.5-1.4) 07/31/16 16:00 PTT (Actin FS) 24.3 SECONDS (26.0-38.0) L 07/31/16 16:00 Sodium 138 mEq/L (136-145) 07/31/16 16:00 Potassium 3.5 mEq/L (3.5-5.1) 07/31/16 16:00 Chloride 107 mEq/L (98-107) 07/31/16 16:00 Carbon Dioxide 22.9 mEq/L (21.0-31.0) 07/31/16 16:00 Anion Gap 11.6 (7.0-16.0) 07/31/16 16:00 BUN 36 mg/dL (7-25) H 07/31/16 16:00 Creatinine 1.7 mg/dL (0.6-1.2) H 07/31/16 16:00 Est GFR ( Amer) TNP 07/31/16 16:00 Est GFR (Non-Af Amer) TNP 07/31/16 16:00 BUN/Creatinine Ratio 21.2 07/31/16 16:00 Glucose 127 mg/dL (70-105) H 07/31/16 16:00 Calcium 9.3 mg/dL (8.6-10.3) 07/31/16 16:00 Total Bilirubin 0.5 mg/dL (0.3-1.0) 07/31/16 16:00 AST 18 U/L (13-39) 07/31/16 16:00 ALT 17 U/L (7-52) 07/31/16 16:00 Alkaline Phosphatase 48 U/L (34-104) 07/31/16 16:00 Troponin I 0.06 ng/mL (0.01-0.05) H 08/02/16 15:00 Total Protein 6.7 gm/dL (6.0-8.3) 07/31/16 16:00 Albumin 3.8 gm/dL (3.7-5.3) 07/31/16 16:00 Globulin 2.9 gm/dL 07/31/16 16:00 Albumin/Globulin Ratio 1.3 (1.0-1.8) 07/31/16 16:00 Blood Type A POSITIVE 07/31/16 16:00 Antibody Screen NEGATIVE 07/31/16 16:00 - Physical Exam Vitals and I&O: Vital Signs Temp 98.3 F 08/04/16 08:00 Pulse 79 08/04/16 09:58 Resp 18 08/04/16 08:00 BP 187/86 08/04/16 09:58 Pulse Ox 99 08/04/16 08:00 Intake & Output 08/03/16 08/04/16 08/04/16 18:59 06:59 18:59 Intake Total 400 250 Balance 400 250 Intake: Oral 400 250 Other: # Voids 3 2 Active Medications: Current Medications Acetaminophen (Tylenol) 650 mg PO Q4HR PRN PRN Reason: PAIN Stop: 09/29/16 22:26 Al Hydrox/Mg Hydrox/Simethicone (Maalox) 30 ml PO Q6H PRN PRN Reason: SUPPLEMENT Stop: 09/29/16 22:53 Atorvastatin Calcium (Lipitor) 10 mg PO HS REPLACED BY [facility] PRN Reason: Protocol Stop: 09/30/16 20:59 Last Admin: 08/03/16 20:34 Dose: 10 mg Clonidine HCl (Catapres) 0.1 mg PO Q6H PRN PRN Reason: HTN Stop: 09/29/16 22:26 Last Admin: 08/03/16 04:57 Dose: 0.1 mg Docusate Sodium (Colace) 100 mg PO Q12H PRN PRN Reason: Constipation Stop: 09/29/16 22:26 Donepezil HCl (Aricept) 5 mg PO HS REPLACED BY [facility] Stop: 09/30/16 20:59 Last Admin: 08/03/16 20:35 Dose: 5 mg Enalaprilat (Vasotec) 1.25 mg IVP Q6HR PRN PRN Reason: SBP> 160 Stop: 09/30/16 00:00 Escitalopram Oxalate (Lexapro) 10 mg PO HS REPLACED BY [facility] PRN Reason: Protocol Stop: 09/30/16 20:59 Last Admin: 08/03/16 20:34 Dose: 10 mg Levothyroxine Sodium (Synthroid) 0.075 mg PO DAILY REPLACED BY [facility] Stop: 09/30/16 08:59 Last Admin: 08/04/16 09:59 Dose: 0.075 mg Losartan Potassium (Cozaar) 100 mg PO DAILY REPLACED BY [facility] Stop: 10/04/16 08:59 Megestrol Acetate (Megace) 400 mg PO BID REPLACED BY [facility] Stop: 09/30/16 08:59 Last Admin: 08/04/16 09:58 Dose: 400 mg Metoprolol Tartrate (Lopressor) 25 mg PO DAILY REPLACED BY [facility] Stop: 09/30/16 13:29 Last Admin: 08/04/16 09:58 Dose: 25 mg Morphine Sulfate (Morphine) 1 mg IVP Q6HR PRN PRN Reason: Pain (Severe) Stop: 09/29/16 22:24 Last Admin: 08/02/16 09:30 Dose: 1 mg Pantoprazole Sodium (Protonix) 40 mg PO DAILY BRANDY Stop: 09/30/16 08:59 Last Admin: 08/04/16 09:58 Dose: 40 mg Promethazine HCl/Dextromethorphan (Phenergan Dm 6.25/15mg-5 Ml) 5 ml PO TID PRN PRN Reason: Cough Stop: 09/29/16 22:26 General: No acute distress HEENT: Atraumatic Neck: Supple Cardiovascular: Regular rate Lungs: Clear to auscultation Assessment/Plan - Problem List Patient Problems: All Active Problems GENERALIZED WEAKNESS (Acute) dehydartion (Acute) gait disorder (Acute) hypothyroidm (Acute) osteoporosis (Acute) prerenal azotemiaa improving (Acute) - Plan Plan: monitor vitals/diet f/up consultants labs
[2016-08-04] MEDS: Atorvastatin Calcium 10 MG TAB PO SCH (20:32)
[2016-08-05 06:14] LABS: BUN - UREA NITROGEN 30 mg/dL (7-25); BUN/CREATININE RATIO 21.4; CALCIUM SERUM 8.5 mg/dL (8.6-10.3); CHLORIDE 114 mEq/L (98-107); CREATININE - SERUM 1.4 mg/dL (0.6-1.2); GLUCOSE 99 mg/dL (70-105); SODIUM SERUM 142 mEq/L (136-145)
[2016-08-05 06:19] LABS: % BASOPHILS 0.3 % (0.0-2.0); % EOSINOPHILS 1.1 % (0.0-5.0); % LYMPHOCYTES 20.4 % (20.0-50.0); % MONOCYTES 6.8 % (2.0-10.0); % NEUTROPHILS 71.4 % (40.0-80.0); HEMOGLOBIN 10.3 gm/dL (11.7-16.1); MEAN CELL VOLUME 93.1 fl (81-100); MEAN CORPUSCULAR HEMOGLOBIN 31.6 pg (27.0-31.0); MEAN CORPUSCULAR HGB CONC 33.9 pg (28.0-36.0); MEAN PLATELET VOLUME 7.5 fl; NEUTROPHILE ABSOLUTE 4.5 Th/cmm (1.8-8.0); PLATELET COUNT 225 Th/cmm (150-400); RED BLOOD COUNT 3.26 Mil/cmm (3.80-5.20); RED CELL DISTRIBUTION WIDTH 12.9 % (11.5-20.0)
[2016-08-05 06:27] LABS: HEMATOCRIT 30.3 % (35.0-45.0); WHITE BLOOD COUNT 6.3 Th/cmm (4.8-10.8)
[2016-08-05] MEDS: Levothyroxine 0.075 Mg Tab PO SCH (08:51)
[2016-08-05] MEDS: Pantoprazole 40 mg EC Tab PO SCH (08:52)
[2016-08-05] MEDS: Multivitamin w/ Minerals Tab PO SCH (08:52)
[2016-08-05] MEDS ORDERED: D5-0.45NS 1,000 ML IV SCH (15:37)
--- NOTE | 2016-08-05 22:00 | Progress Notes ---
SUBJECTIVE: The patient was seen in her room, lying in the bed. The patient is currently eating. The patient still has some ecchymosis on the facial area specially on the right side. The patient is discharged today, going to [facility]. OBJECTIVE: HEENT: Head is atraumatic and normocephalic with some ecchymosis on the facial area. NECK: Supple. No JVD. CARDIOVASCULAR: S1 and S2 heard without murmur. PULMONARY: Clear to auscultation. GASTROINTESTINAL: Soft and nontender. Positive bowel sounds. MUSCULOSKELETAL: Bilateral lower ____ weakness. ASSESSMENT: 1. Status post fall. 2. Facial contusion. 3. Hyperlipidemia. 4. Hypertension. 5. Dementia. 6. Depression. 7. Hypothyroidism. 8. Gastroesophageal reflux disease. PLAN: The patient will be discharged tonight to [facility]. Blood pressure will be maintained in the parameter less than 130 systolic. Otherwise, the patient is still going to remain overnight if blood pressure will not be controlled. Above case was discussed with Dr. Chan. JOB# [id number]
--- NOTE | 2016-08-13 01:36 | Discharge Summary ---
HOSPITAL COURSE OF TREATMENT: The patient was originally resident from a detention and was admitted through the Emergency Room due to status post fall, and from the Emergency Room the patient underwent series of radiology tests and fortunately negative for fracture and the patient was admitted to the med/surg floor where she was monitored to rule out any cardiac etiology, and afterwards when the patient was stabilized, the patient was discharged back to [facility]. DISCHARGE DIAGNOSES: 1. Status post fall. 2. Facial contusion. 3. Hyperlipidemia. 4. Hypertension. 5. Hypothyroidism. 6. Gastroesophageal reflux disease. 7. Dementia. 8. Depression. DISCHARGE INSTRUCTION: The patient was discharged back to [facility] and will be followed by the [facility] doctor. JOB# [id number]
--- NOTE | 2016-08-13 01:58 | Discharge Summary ---
The patient was admitted for history of fall, facial trauma, head injury, syncope, and dementia, osteoporosis, osteoarthritis, history of GI bleeding, history of anemia, and gait disorder. She was treated for all that. The patient improved and the patient was in stable condition and on 08/05/2016 was discharged back to [facility]. I will be following the patient. MEDICATION: See reconciliation sheet. CONDITION AT THE TIME OF DISCHARGE: Stable. JOB# [id number]
== END 2016-08-05 20:30 | DRG 125 ==
LOC: ER 15:21 → TELE 20:30
PROVIDERS: ADMIT Internal Medicine; ATTEND Internal Medicine
DX: S05.11XA Contusion of eyeball and orbital tissues, right eye, initial encounter (principal); N17.9 Acute kidney failure, unspecified; F03.90 Unspecified dementia, unspecified severity, without behavioral disturbance, psychotic disturbance, mood disturbance, and anxiety; N18.3 Chronic kidney disease, stage 3 (moderate); R55 Syncope and collapse; M19.90 Unspecified osteoarthritis, unspecified site; M81.0 Age-related osteoporosis without current pathological fracture; R26.9 Unspecified abnormalities of gait and mobility; D50.9 Iron deficiency anemia, unspecified; E03.9 Hypothyroidism, unspecified; F32.9 Major depressive disorder, single episode, unspecified; I12.9 Hypertensive chronic kidney disease with stage 1 through stage 4 chronic kidney disease, or unspecified chronic kidney disease; H54.41 Blindness, right eye, normal vision left eye; E78.5 Hyperlipidemia, unspecified; K21.9 Gastro-esophageal reflux disease without esophagitis; M85.80 Other specified disorders of bone density and structure, unspecified site; W01.0XXA Fall on same level from slipping, tripping and stumbling without subsequent striking against object, initial encounter; Y93.89 Activity, other specified; Y92.89 Other specified places as the place of occurrence of the external cause; Y99.8 Other external cause status
CPT/HCPCS: 36415-UA; 70450-TC; 70480-TC; 73562-TC-LT; 73562-TC-RT; 80048-TC; 80053-TC; 84484-TC; 85025-TC; 85610-TC; 86850-TC; 86900-TC; 86901-TC; 93005; J2270; X3904; Z7502; Z7610